=== PATIENT | male | born 1935 | race Caucasian/White ===

== ENCOUNTER → 2016-02-27 | Outpatient (CLI) | payer MEDICARE, OTHER ==
[2016-02-27 08:34] LABS: INR 1.1 (<1.1); Partial Thromboplastin Time 24.1 sec (22.0-30.0); Prothrombin Time 10.6 sec (9.0-12.0)
== END | disposition home or self-care (01) ==
LOC: LABWHC1 07:57
PROVIDERS: ATTEND Physical Medicine & Rehabilitation
DX: M48.06 Spinal stenosis, lumbar region (principal); M43.16 Spondylolisthesis, lumbar region; M51.17 Intervertebral disc disorders with radiculopathy, lumbosacral region; M47.27 Other spondylosis with radiculopathy, lumbosacral region; M54.2 Cervicalgia; M54.5 Low back pain; K21.9 Gastro-esophageal reflux disease without esophagitis; Z98.890 Other specified postprocedural states
CPT/HCPCS: 36415; 85610; 85730

== ENCOUNTER → 2016-03-06 | Outpatient (CLI) | payer MEDICARE, OTHER ==
--- NOTE | 2016-03-06 19:09 | PN ---
Luis is a 80-year-old male patient coming in for a compliancy check regarding his obstructive sleep apnea treatment. He was found to have mild NATE with an AHI of 11 and currently he is on CPAP pressure of 10 cm of water. This was following his CPAP titration that was undergone on 12/28/2015. His compliance data showed excellent CPAP use. His CPAP use for more than 4 hours is 100%, average CPAP use is 7 hours. His leak factor is at 4-L/m and he is having some issues with irritation of the skin around the nose with his Mirage FX mask. As such, was switched to a Solomon FX mask and he is also having some irritation in his nostrils. He is looking forward to a new mask. His AHI while on treatment is down to 1.8 and as such, his treatment has been successful. Clinically he is awake, alert during the day and he is already seeing good clinical response from CPAP therapy. His BP is 119/68, pulse 74, respirations 16, temperature 97.8. Weight is 183 and [place] score is 7. Saturation 96% on room air. GENERAL APPEARANCE: Calm, comfortable. HEENT: Negative for JVD. There is no goiter, neck mass. LUNGS: Diminished breath sounds bilaterally; otherwise clear. HEART: Sounds are regular rate and rhythm and normal S1, S2. ABDOMEN: Soft, nontender. No organomegaly. EXTREMITIES: No edema. No cyanosis or clubbing. IMPRESSION: 1. Obstructive sleep apnea with an AHI of 11, currently on CPAP pressure of 10. 2. Nose/skin irritation from Mirage FX and Solomon FX mask. 3. Hypersomnia, improved. 4. Bronchial asthma, intermittent. 5. Paroxysmal atrial fibrillation. 6. Hyperlipidemia. 7. Hypothyroidism. 8. Gastroesophageal reflux disease. PLAN: 1. Keep CPAP pressure at the same level. 2. Provide the patient with a large size Eson nasal mask. 3. See me back in 6 weeks' time for a follow-up. If this mask is acceptable, will switch him to an Eson mask and dropped the other two. 4. Treatment in general is successful. Will continue the same pressure setting and will continue to follow and make further recommendations based on his progress.
== END | disposition home or self-care (01) ==

== ENCOUNTER → 2016-04-17 | Outpatient (CLI) | payer MEDICARE, OTHER ==
--- NOTE | 2016-04-17 21:11 | PN ---
This 80-year-old male patient is seeing me in followup regarding his obstructive sleep apnea. The patient was diagnosed having mild NATE and he had an AHI of 11. The patient was treated with a CPAP pressure of 10 cm of water. This is his followup. During his earlier visit the patient was very compliant and he was seeing excellent clinical response. Nevertheless, he was having some issues with a nasal mask. I have tried different masks on this patient. The earlier masks that were used were Solomon FX, which he failed. He was given a Mirage FX, which was causing some irritation on the skin around the nose. He was also given an Eson nasal mask. On today's evaluation, he would like to try an alternative mask, and I spent approximately 45 minutes with this patient trying different masks. The ones that we used are AirFit N10, AirFit F10, and AirFit N wide. All of these failed, and the patient would like to go back to his original mask, which is either the Eson or the Mirage FX. Otherwise he is doing well. He is compliant with CPAP therapy. There have been no other complaints for now. Temperature 98.3, pulse 79, respirations 18. BP is 111/70. [place] score is 7. BMI is 26.1, saturation 94% on room air. GENERAL APPEARANCE: Calm, comfortable. HEENT: Negative for JVD. There is no goiter or neck mass. LUNGS: Clear to auscultation. HEART: Heart sounds are regular rate and rhythm. Normal S1, S2. No S3. No S4. No murmurs. ABDOMEN: Soft, nontender. No organomegaly. EXTREMITIES: No edema. No cyanosis or clubbing. IMPRESSION: 1. Obstructive sleep apnea, apnea-hypopnea index of 11, currently on CPAP pressure of 10 cm of water. 2. Difficulty in finding an appropriate nasal mask that ( ) to his facial features and large nose. 3. Hypersomnia, improved. 4. Bronchial asthma, intermittent. 5. Paroxysmal atrial fibrillation. 6. Hyperlipidemia. 7. Hypothyroidism. 8. Gastroesophageal reflux disease. PLAN: 1. After a lengthy search of various masks, we went back to his original large-sized Eson nasal mask, which can be used in alternation with Mirage FX nasal mask. 2. Keep same CPAP pressures. 3. See me back in a year's time in followup. Prescription for both were given through his DME.
== END | disposition home or self-care (01) ==
LOC: SLEEP 15:36
PROVIDERS: ATTEND Internal Medicine Critical Care Medicine
DX: G47.33 Obstructive sleep apnea (adult) (pediatric) (principal); G47.10 Hypersomnia, unspecified; J45.909 Unspecified asthma, uncomplicated; I48.0 Paroxysmal atrial fibrillation; E78.5 Hyperlipidemia, unspecified; E03.9 Hypothyroidism, unspecified; K21.9 Gastro-esophageal reflux disease without esophagitis

== ENCOUNTER → 2016-09-24 | Outpatient (CLI) | payer MEDICARE, OTHER ==
--- NOTE | 2016-09-24 10:57 | XR ---
EXAMINATION TYPE: XR knee complete bilateral DATE OF EXAM: 09/24/2016 COMPARISON: NONE HISTORY: Pain TECHNIQUE: Four views are submitted bilaterally. FINDINGS: Mild narrowing of the medial compartment of the knee joint and greater on the right. Mild hypertrophi c change of the patellofemoral joint bilaterally. Vascular calcifications noted. Chondrocalcinosis noted bilaterally. Osseous structures are intact. N o acute fracture seen. IMPRESSION: 1. Mild osteoarthritis with chondrocalcinosis bilaterally.
== END | disposition home or self-care (01) ==
LOC: RADXRMAIN 10:31
PROVIDERS: ATTEND Family Medicine
DX: M17.0 Bilateral primary osteoarthritis of knee (principal); M11.261 Other chondrocalcinosis, right knee; M11.262 Other chondrocalcinosis, left knee

== ENCOUNTER → 2017-06-04 | Outpatient (CLI) | payer MEDICARE, OTHER ==
--- NOTE | 2017-06-04 15:32 | PN ---
PROGRESS NOTE This patient is 82 years old, with known history of obstructive sleep apnea, AHI of 11, currently on CPAP pressure of 10. He is coming in for a routine followup. The patient was initially having some difficulties with his mask interface. He initially was using a nose mask and at a later stage, I switched him to an Air Fit F20 Air Touch model. The patient is coming in for a follow up. He is doing better while on the full-face mask. At times, he is still leaking and for that reason, he has made the mask quite tight on his face and because of his increased tightness, this is affecting his ability to maintain the mask throughout the night. He has been averaging around 2.5 hours of CPAP use per night and would like to see his compliancy improved. He is feeling a bit sleepy and tired during the day. He is wearing his CPAP every night; however, he is trying to make an effort to achieve more than 2.5 hours. He is still waking up a bit tired and sleepy during the day. His current Balm Score is at 9. VITALS: BP is 120/77, pulse 66, respirations 16, temperature 96.8, saturation 97% on room air. GENERAL APPEARANCE: Calm, comfortable. Head is atraumatic, normocephalic. Neck is supple. There is no JVD. No goiter or neck masses. LUNGS: Clear to auscultation. Heart sounds are regular rate and rhythm and rhythm. Normal S1, S2. No S3. No murmurs. Abdomen is soft, nontender. No organomegaly. EXTREMITIES: No edema. No cyanosis or clubbing. IMPRESSION: 1. Obstructive sleep apnea, apnea-hypopnea index of 11, currently on CPAP pressure of 10. 2. Chronic hypersomnia, probably due to suboptimal use of CPAP treatment. 3. Bronchial asthma. 4. Paroxysmal atrial fibrillation, current rhythm is sinus. 5. Hyperlipidemia. 6. Hypothyroidism. 7. Gastroesophageal reflux disease. PLAN: I was able to fit the patient with an Air Fit F20 large size full-face mask. This will be given a trial and the patient will be picking up a sample from our office and he will try to increase the number of hours of CPAP use per night. Will see him back in follow up at the [facility]. His overall treatment is suboptimum, would like to improve his compliance by improving his comfort level of mask interface. Will continue to follow and will make further recommendations based on his progress. MMODL / IJN: [id number] /
== END | disposition home or self-care (01) ==
LOC: SLEEP 13:21
PROVIDERS: ATTEND Internal Medicine Critical Care Medicine
DX: G47.33 Obstructive sleep apnea (adult) (pediatric) (principal); J45.909 Unspecified asthma, uncomplicated; I48.0 Paroxysmal atrial fibrillation; E78.5 Hyperlipidemia, unspecified; E03.9 Hypothyroidism, unspecified; K21.9 Gastro-esophageal reflux disease without esophagitis; Z99.89 Dependence on other enabling machines and devices

== ENCOUNTER 2017-06-23 19:36 | Inpatient (IN) | payer MEDICARE, OTHER ==
[2017-06-23] MEDS ORDERED: DILTIAZEM 50 MG in SODIUM CHLORIDE 0.9% 40 ML IV ONE (19:51)
--- NOTE | 2017-06-23 20:18 | ED ---
General Adult HPI - General Chief complaint: Chest Pain Stated complaint: chest pain Time Seen by Provider: 06/23/17 19:39 Source: patient, RN notes reviewed, old records reviewed Mode of arrival: ambulatory Limitations: no limitations - History of Present Illness Initial comments: This is an 82-year-old male the ER for evaluation. They presents for evaluation regards to shortness of breath chest pain and elevated heart rate. Patient has no history of A. fib with RVR, history of heart disease but no stents of prior heart attack. Patient admits to chest pain started prior to arrival, he does admit to not taking his medication flecainide earlier in the day. Patient has recent fevers no cough or congestion. States he was feeling fine yesterday. - Related Data Home Medications Medication Instructions Recorded Confirmed Aspirin EC [Ecotrin] 81 mg PO DAILY 09/23/13 11/15/15 Ezetimibe/Simvastatin [Vytorin 1 tab PO HS 09/23/13 11/15/15 10-20 mg Tablet] Furosemide [Lasix] 20 mg PO DAILY 09/23/13 11/15/15 Levothyroxine Sodium [Synthroid] 50 mcg PO DAILY 09/23/13 11/15/15 Montelukast [Singulair] 10 mg PO HS 09/23/13 11/15/15 Nitroglycerin Sl Tabs [Nitrostat] 0.4 mg SUBLINGUAL Q5M PRN 09/23/13 11/15/15 Omeprazole [PriLOSEC] 20 mg PO AC-BRKFST 09/23/13 11/15/15 Warfarin [Coumadin] 5 mg PO MOWETHFRSA 09/23/13 11/15/15 Albuterol Sulfate [Proair Hfa] 1 - 2 puff INHALATION RT-Q6H PRN 05/05/14 Albuterol Nebulized [Ventolin 2.5 mg INHALATION RT-Q6H PRN 07/14/15 11/15/15 Nebulized] DULoxetine HCL [Cymbalta] 30 mg PO DAILY 07/14/15 11/15/15 Flecainide Acetate [Flecainide 100 mg PO BID 11/15/15 11/15/15 Acetate] Warfarin Sodium [Warfarin Sodium] 7.5 mg PO SUTU 11/15/15 11/15/15 Previous Rx's Medication Instructions Recorded Cephalexin [Keflex] 500 mg PO Q8HR #21 cap 11/15/15 Allergies Allergy/AdvReac Type Severity Reaction Status Date / Time indomethacin [From Indocin] Allergy Severe states Verified 06/23/17 19:43 "severe asthma attack indomethacin sodium Allergy Severe states Verified 06/23/17 19:43 [From Indocin] "severe asthma attack" clarithromycin [From Biaxin] Allergy Unknown Rash/Hives Verified 06/23/17 19:43 morphine Allergy Unknown Hallucinati Verified 06/23/17 19:43 ons spironolactone Allergy Unknown DEVELOPED Verified 06/23/17 19:43 LUMP IN BREAST AND ENLARGEMENT PERFUME Allergy Dyspnea Uncoded 06/23/17 19:43 Review of Systems ROS Statement: Those systems with pertinent positive or pertinent negative responses have been documented in the HPI. ROS Other: All systems not noted in ROS Statement are negative. Past Medical History Past Medical History: Atrial Fibrillation, Coronary Artery Disease (CAD), Chest Pain / Angina, GERD/Reflux, Hyperlipidemia, Osteoarthritis (OA), Thyroid Disorder Additional Past Medical History / Comment(s): HIATAL HERNIA. RARE GERD. History of Any Multi-Drug Resistant Organisms: None Reported Past Surgical History: Back Surgery, Heart Catheterization, Hernia Repair Additional Past Surgical History / Comment(s): CTR ARABELLA. ARABELLA CATARACTS. ING HERNIA X3. ARABELLA KNEE SURG. TRAUMATIC AMP 1/2LT 3RD FINGER. FX BACK REPAIR. shoulder surg Past Anesthesia/Blood Transfusion Reactions: Motion Sickness Past Psychological History: No Psychological Hx Reported Smoking Status: Former smoker Past Alcohol Use History: None Reported Past Drug Use History: None Reported General Exam Limitations: no limitations General appearance: alert, in no apparent distress Head exam: Present: atraumatic, normocephalic, normal inspection Eye exam: Present: normal appearance, PERRL, EOMI. Absent: scleral icterus, conjunctival injection, periorbital swelling ENT exam: Present: normal exam, mucous membranes moist Neck exam: Present: normal inspection. Absent: tenderness, meningismus, lymphadenopathy Respiratory exam: Present: normal lung sounds bilaterally. Absent: respiratory distress, wheezes, rales, rhonchi, stridor Cardiovascular Exam: Present: tachycardia, irregular rhythm, normal heart sounds. Absent: systolic murmur, diastolic murmur, rubs, gallop, clicks GI/Abdominal exam: Present: soft, normal bowel sounds. Absent: distended, tenderness, guarding, rebound, rigid Extremities exam: Present: normal inspection, full ROM, normal capillary refill. Absent: tenderness, pedal edema, joint swelling, calf tenderness Back exam: Present: normal inspection Neurological exam: Present: alert, oriented X3, CN II-XII intact Psychiatric exam: Present: normal affect, normal mood Skin exam: Present: warm, dry, intact, normal color. Absent: rash Course Vital Signs 06/23/17 06/23/17 19:39 19:57 Temperature 97.8 F Pulse Rate 97 132 H Respiratory 18 22 Rate Blood Pressure 128/97 118/73 O2 Sat by Pulse 98 99 Oximetry EKG Findings - EKG Comments: EKG Findings:: EKG shows A. fib with RVR rate 143, QRS 70, QTc 466 Medical Decision Making - Lab Data Lab Results 06/23/17 Range/Units 19:50 PT 18.4 H (9.0-12.0) sec INR 2.0 H (<1.2) APTT 28.1 (22.0-30.0) sec Disposition Clinical Impression: Chest pain, Atrial fibrillation with RVR Disposition: ADMITTED IP TO THIS HOSP Condition: Fair Is patient prescribed a controlled substance at d/c from ED?: No Referrals: Mark Anthony Mckeon DO [Primary Care Provider] - 1-2 days
[2017-06-23] MEDS: SODIUM CHLORIDE 0.9% 1,000 ML IV SCH (20:30)
[2017-06-23 20:32] LABS: Partial Thromboplastin Time 28.1 sec (22.0-30.0); Prothrombin Time 18.4 sec (9.0-12.0)
[2017-06-23] MEDS ORDERED: NITROGLYCERIN SL TABS 0.4 MG TAB SUBLINGUAL PRN (20:32)
[2017-06-23] MEDS ORDERED: ASPIRIN 81 MG PO STA (20:32)
[2017-06-23 20:44] LABS: Basophils % (A) 0 %; Eosinophils # (A) 0.1 k/uL (0-0.7); Eosinophils % (A) 1 %; HCT 39.7 % (39.0-53.0); HGB 13.4 gm/dL (13.0-17.5); Lymphocytes # (A) 2.8 k/uL (1.0-4.8); Lymphocytes % (A) 47 %; MCH 31.8 pg (25.0-35.0); MCHC 33.7 g/dL (31.0-37.0); MCV 94.3 fL (80.0-100.0); Mean Platelet Volume 7.4; Monocytes # (A) 0.5 k/uL (0-1.0); Monocytes % (A) 8 %; Neutrophils # (A) 2.4 k/uL (1.3-7.7); Neutrophils % (A) 41 %; Platelet Count 159 k/uL (150-450); RBC 4.21 m/uL (4.30-5.90); RDW 15.4 % (11.5-15.5)
--- NOTE | 2017-06-23 20:46 | XR ---
EXAMINATION TYPE: XR chest 2V DATE OF EXAM: 06/23/2017 COMPARISON: 06/23/2015 INDICATION: Chest pain TECHNIQUE: Frontal and lateral views of the chest are obtained. FINDINGS: The heart size is normal. The pulmonary vasculature is normal. The lungs are clear. There is air within loops of bowel under the right diaphragm. IMPRESSION: 1. No acute pulmonary process.
[2017-06-23 20:50] LABS: Creatine Kinase 151 U/L (55-170)
[2017-06-23 21:02] LABS: Creatine Kinase MB 2.4 ng/mL (0.0-2.4); Troponin I <0.012 ng/mL (0.000-0.034)
[2017-06-23 21:19] VITALS: BMI 26.9
[2017-06-23 21:29] LABS: ALT 18 U/L (21-72); AST 24 U/L (17-59); Albumin 3.9 g/dL (3.5-5.0); Alkaline Phosphatase 97 U/L (38-126); Anion Gap 15 mmol/L; Blood Urea Nitrogen 18 mg/dL (9-20); Calcium 9.3 mg/dL (8.4-10.2); Carbon Dioxide 22 mmol/L (22-30); Chloride 108 mmol/L (98-107); Glucose 95 mg/dL (74-99); Lipase 120 U/L (23-300); Potassium 3.9 mmol/L (3.5-5.1); Sodium 145 mmol/L (137-145); Total Bilirubin 0.9 mg/dL (0.2-1.3); Total Protein 6.6 g/dL (6.3-8.2)
[2017-06-23] MEDS: FLECAINIDE 50 MG TAB PO SCH (21:31)
[2017-06-23] MEDS: METOPROLOL TARTRATE 50 MG TAB PO SCH (21:37)
[2017-06-24 02:06] LABS: Creatine Kinase 116 U/L (55-170)
[2017-06-24 02:19] LABS: Troponin I <0.012 ng/mL (0.000-0.034)
[2017-06-24 06:43] LABS: Cholesterol 112 mg/dL (<200); HDL Cholesterol 36 mg/dL (40-60); LDL Cholesterol,Calculated 63 mg/dL (0-99); Triglycerides 65 mg/dL (<150)
[2017-06-24 06:46] LABS: Creatine Kinase 99 U/L (55-170)
[2017-06-24 06:58] LABS: Creatine Kinase MB 1.7 ng/mL (0.0-2.4); Troponin I <0.012 ng/mL (0.000-0.034)
[2017-06-24] MEDS ORDERED: ASPIRIN 325 MG TAB PO SCH (09:00)
--- NOTE | 2017-06-24 10:25 | P.CRDCN ---
History of Present Illness Consult date: 06/24/17 Requesting physician: Marleni Garcia Consult reason: chest pain, atrial fibrillation Chief complaint: Chest pain and palpitations History of present illness: This is an 82-year-old gentleman who follows regularly with Dr. Izaguirre in the office. He has known history of hyperlipidemia, hypothyroidism, paroxysmal atrial fibrillation, coronary artery disease, patient states that he had a heart catheterization performed in the past at which time he states that he underwent angioplasty with attempt at stent placement. We will obtain the records from the office on this. Patient does have history of GERD and difficulty swallowing which she states he's had for several years. He presents to the hospital on this occasion with what he describes as crushing chest pain, mild nausea, and the feeling that his heart was racing fast. EKG on presentation here shows atrial fibrillation with a rapid ventricular response into her Q waves are noted. Chest x-ray does not reveal any acute pulmonary process. White blood cell count 6.0, hemoglobin 13.4, platelet count 159. Sodium 145, potassium 3.9, BUN 18, creatinine 0.8. Troponins are negative 3. BNP level LIX. Cholesterol 112, triglycerides 65, LDL 63, HDL 36. Patient was initiated on IV Cardizem in the emergency room, around 1:00 in the morning had a 9 second pause and converted to normal sinus rhythm. Continues to be in a normal sinus rhythm this morning with a heart rate in the 50s. Still complaining of midsternal chest discomfort, when patient takes even a mildly deep breath the pain accentuates substantially. If he is not taking a deep breath he has no discomfort at all in the chest. Past Medical History Past Medical History: Atrial Fibrillation, Coronary Artery Disease (CAD), Chest Pain / Angina, GERD/Reflux, Hyperlipidemia, Osteoarthritis (OA), Thyroid Disorder Additional Past Medical History / Comment(s): HIATAL HERNIA. RARE GERD. History of Any Multi-Drug Resistant Organisms: None Reported Past Surgical History: Back Surgery, Heart Catheterization, Hernia Repair Additional Past Surgical History / Comment(s): CTR ARABELLA. ARABELLA CATARACTS. ING HERNIA X3. ARABELLA KNEE SURG. TRAUMATIC AMP 1/2LT 3RD FINGER. FX BACK REPAIR. shoulder surg Past Anesthesia/Blood Transfusion Reactions: Motion Sickness Past Psychological History: No Psychological Hx Reported Smoking Status: Former smoker Past Alcohol Use History: None Reported Past Drug Use History: None Reported Medications and Allergies Home Medications Medication Instructions Recorded Confirmed Type Aspirin EC [Ecotrin] 81 mg PO HS 09/23/13 06/24/17 History Ezetimibe/Simvastatin [Vytorin 1 tab PO HS 09/23/13 06/24/17 History 10-20 mg Tablet] Furosemide [Lasix] 20 mg PO DAILY 09/23/13 06/24/17 History Levothyroxine Sodium [Synthroid] 50 mcg PO DAILY 09/23/13 06/24/17 History Montelukast [Singulair] 10 mg PO HS 09/23/13 06/24/17 History Nitroglycerin Sl Tabs [Nitrostat] 0.4 mg SUBLINGUAL Q5M PRN 09/23/13 06/24/17 History Omeprazole [PriLOSEC] 20 mg PO AC-BRKFST 09/23/13 06/24/17 History Warfarin [Coumadin] 5 mg PO TUTHSA 09/23/13 06/24/17 History Albuterol Sulfate [Proair Hfa] 1 - 2 puff INHALATION RT-Q6H PRN 05/05/14 History Albuterol Nebulized [Ventolin 2.5 mg INHALATION RT-Q6H PRN 07/14/15 06/24/17 History Nebulized] Flecainide Acetate [Flecainide 100 mg PO BID 11/15/15 06/24/17 History Acetate] Warfarin Sodium [Warfarin Sodium] 7.5 mg PO SUMOWEFR 11/15/15 06/24/17 History Allergies Allergy/AdvReac Type Severity Reaction Status Date / Time indomethacin [From Indocin] Allergy Severe states Verified 06/24/17 08:26 "severe asthma attack indomethacin sodium Allergy Severe states Verified 06/24/17 08:26 [From Indocin] "severe asthma attack" clarithromycin [From Biaxin] Allergy Unknown Rash/Hives Verified 06/24/17 08:26 morphine Allergy Unknown Hallucinati Verified 06/24/17 08:26 ons spironolactone Allergy Unknown DEVELOPED Verified 06/24/17 08:26 LUMP IN BREAST AND ENLARGEMENT PERFUME Allergy Dyspnea Uncoded 06/23/17 19:43 Physical Exam Vitals: Vital Signs Temp Pulse Pulse Resp BP BP Pulse Ox 06/24/17 07:59 97.0 F L 54 L 18 100/57 96 05/07/18 04:00 97.3 F L 58 L 18 103/59 96 06/24/17 00:00 97.1 F L 98 17 78/45 98 06/23/17 21:40 97.0 F L 102 H 19 112/76 98 06/23/17 20:45 100 19 112/76 98 06/23/17 20:43 98.6 F 132 H 22 122/56 99 06/23/17 19:57 132 H 22 118/73 99 06/23/17 19:39 97.8 F 97 18 128/97 98 Intake and Output 06/23/17 06/24/17 06/24/17 22:59 06:59 14:59 Intake Total 75 Balance 75 Intake: Intake, IV Titration 75 Amount Diltiazem 50 mg In Sodium 15 Chloride 0.9% 40 ml @ 5 MG/HR 5 mls/hr IV .Q10H [facility] Rx#:[id number] Sodium Chloride 0.9% 1, 60 000 ml @ 20 mls/hr IV . Q24H [facility] Rx#:[id number] Other: Voiding Method Toilet Toilet # Voids 1 1 0 Weight 82.9 kg 82.9 kg Assessment and plan #1 chest pain, atypical for acute coronary syndrome. Troponins negative 3. #2 atrial fibrillation with rapid ventricular response, currently in normal sinus rhythm #3 history of paroxysmal atrial fibrillation #4 coronary artery disease with prior PTCA, exact details unavailable. #5 paroxysmal atrial fibrillation, on Coumadin for anticoagulation #6 GERDS and chronic difficulty in swallowing Plan We will obtain an echocardiogram with Doppler study as well as a TSH level. Patient's chest pain is very atypical and pleuritic in nature. Troponins are negative. We will obtain the patient's office note. Continue flecainide and beta bi. Further recommendations to follow. DNP note has been reviewed, I agree with a documented findings and plan of care. Patient was seen and examined. Results 06/23/17 19:50 06/23/17 19:50 Cardiac Enzymes 06/23/17 06/23/17 06/24/17 Range/Units 19:50 19:50 01:00 AST 24 (17-59) U/L CK-MB (CK-2) 2.4 2.0 (0.0-2.4) ng/mL Troponin I <0.012 <0.012 (0.000-0.034) ng/mL 06/24/17 Range/Units 05:50 AST (17-59) U/L CK-MB (CK-2) 1.7 (0.0-2.4) ng/mL Troponin I <0.012 (0.000-0.034) ng/mL Coagulation 06/23/17 Range/Units 19:50 PT 18.4 H (9.0-12.0) sec APTT 28.1 (22.0-30.0) sec Lipids 06/24/17 Range/Units 05:50 Triglycerides 65 (<150) mg/dL Cholesterol 112 (<200) mg/dL HDL Cholesterol 36 L (40-60) mg/dL CBC 06/23/17 Range/Units 19:50 WBC 6.0 (3.8-10.6) k/uL RBC 4.21 L (4.30-5.90) m/uL Hgb 13.4 (13.0-17.5) gm/dL Hct 39.7 (39.0-53.0) % Plt Count 159 (150-450) k/uL Comprehensive Metabolic Panel 06/23/17 Range/Units 19:50 Sodium 145 (137-145) mmol/L Potassium 3.9 (3.5-5.1) mmol/L Chloride 108 H (98-107) mmol/L Carbon Dioxide 22 (22-30) mmol/L BUN 18 (9-20) mg/dL Creatinine 0.80 (0.66-1.25) mg/dL Glucose 95 (74-99) mg/dL Calcium 9.3 (8.4-10.2) mg/dL AST 24 (17-59) U/L ALT 18 L (21-72) U/L Alkaline Phosphatase 97 (38-126) U/L Total Protein 6.6 (6.3-8.2) g/dL Albumin 3.9 (3.5-5.0) g/dL Current Medications Generic Name Dose Route Start Last Admin Trade Name Freq PRN Reason Stop Dose Admin Aspirin 325 mg 06/24/17 09:00 06/24/17 10:09 Aspirin PO 325 mg DAILY [facility] Administration Flecainide Acetate 100 mg 06/23/17 21:00 06/23/17 21:31 Tambocor PO Not Given BID [facility] Sodium Chloride 1,000 mls @ 20 mls/hr 06/23/17 20:45 06/23/17 20:30 Saline 0.9% IV 20 mls/hr .Q24H [facility] Administration Metoprolol Tartrate 50 mg 06/23/17 21:00 06/23/17 21:37 Lopressor PO 50 mg BID [facility] Administration Nitroglycerin 0.4 mg 06/23/17 20:32 Nitrostat SUBLINGUAL Q5M PRN Chest Pain Warfarin Sodium 5 mg 06/24/17 18:00 Coumadin PO [id number] [facility] Intake and Output 06/23/17 06/24/17 06/24/17 22:59 06:59 14:59 Intake Total 75 Balance 75 Intake: Intake, IV Titration 75 Amount Diltiazem 50 mg In Sodium 15 Chloride 0.9% 40 ml @ 5 MG/HR 5 mls/hr IV .Q10H [facility] Rx#:[id number] Sodium Chloride 0.9% 1, 60 000 ml @ 20 mls/hr IV . Q24H [facility] Rx#:[id number] Other: Voiding Method Toilet Toilet # Voids 1 1 0 Weight 82.9 kg 82.9 kg 06/23/17 19:50 06/23/17 19:50
[2017-06-24] MEDS: FLECAINIDE 50 MG TAB PO SCH ×2 (10:35→20:27)
[2017-06-24] MEDS: METOPROLOL TARTRATE 50 MG TAB PO SCH ×2 (10:35→20:28)
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
[2017-06-24] MEDS ORDERED: WARFARIN 5 MG TAB PO SCH (18:00)
[2017-06-24] MEDS: SODIUM CHLORIDE 0.9% 1,000 ML IV SCH (21:17)
[2017-06-25 04:40] VITALS: RESP 18
[2017-06-25 06:38] LABS: Basophils % (A) 0 %; Eosinophils # (A) 0.1 k/uL (0-0.7); Eosinophils % (A) 1 %; HCT 37.8 % (39.0-53.0); HGB 12.6 gm/dL (13.0-17.5); Lymphocytes # (A) 1.5 k/uL (1.0-4.8); Lymphocytes % (A) 37 %; MCH 32.3 pg (25.0-35.0); MCHC 33.3 g/dL (31.0-37.0); MCV 97.1 fL (80.0-100.0); Mean Platelet Volume 7.7; Monocytes # (A) 0.3 k/uL (0-1.0); Monocytes % (A) 8 %; Neutrophils # (A) 2.1 k/uL (1.3-7.7); Neutrophils % (A) 52 %; Platelet Count 140 k/uL (150-450); RDW 15.5 % (11.5-15.5); WBC 4.1 k/uL (3.8-10.6)
[2017-06-25 06:59] LABS: INR 2.2 (<1.2); Prothrombin Time 19.9 sec (9.0-12.0)
[2017-06-25 07:10] LABS: Anion Gap 7 mmol/L; Blood Urea Nitrogen 16 mg/dL (9-20); Calcium 8.7 mg/dL (8.4-10.2); Carbon Dioxide 27 mmol/L (22-30); Chloride 107 mmol/L (98-107); Glucose 84 mg/dL (74-99); Potassium 4.4 mmol/L (3.5-5.1); Sodium 141 mmol/L (137-145)
[2017-06-25 07:53] VITALS: TEMP 96.5
[2017-06-25] MEDS: METOPROLOL TARTRATE 50 MG TAB PO SCH (08:20)
[2017-06-25] MEDS: FLECAINIDE 50 MG TAB PO SCH (08:20)
[2017-06-25] MEDS ORDERED: NITROGLYCERIN SL TABS 0.4 MG TAB SUBLINGUAL PRN (12:10)
[2017-06-25] MEDS ORDERED: ALBUTEROL NEBULIZED 2.5 MG/3 ML INHALATION PRN (12:10)
[2017-06-25] MEDS ORDERED: FUROSEMIDE 20 MG TAB PO SCH (12:15)
[2017-06-25 12:30] VITALS: BP 130/69; PULSE 48
--- NOTE | 2017-06-25 12:57 | P.PN ---
Subjective Progress Note Date: 06/25/17 Principal diagnosis: Atrial fibrillation This is an 82-year-old gentleman who follows regularly with Dr. Izaguirre in the office. He has known history of hyperlipidemia, hypothyroidism, paroxysmal atrial fibrillation, coronary artery disease, patient states that he had a heart catheterization performed in the past at which time he states that he underwent angioplasty with attempt at stent placement. We will obtain the records from the office on this. Patient does have history of GERD and difficulty swallowing which she states he's had for several years. He presents to the hospital on this occasion with what he describes as crushing chest pain, mild nausea, and the feeling that his heart was racing fast. EKG on presentation here shows atrial fibrillation with a rapid ventricular response into her Q waves are noted. Chest x-ray does not reveal any acute pulmonary process. White blood cell count 6.0, hemoglobin 13.4, platelet count 159. Sodium 145, potassium 3.9, BUN 18, creatinine 0.8. Troponins are negative 3. BNP level LIX. Cholesterol 112, triglycerides 65, LDL 63, HDL 36. Patient was initiated on IV Cardizem in the emergency room, around 1:00 in the morning had a 9 second pause and converted to normal sinus rhythm. Continues to be in a normal sinus rhythm this morning with a heart rate in the 50s. Still complaining of midsternal chest discomfort, when patient takes even a mildly deep breath the pain accentuates substantially. If he is not taking a deep breath he has no discomfort at all in the chest. 06/25/2017 Patient seen and examined this morning, continues to be in a normal sinus rhythm. No evidence of any significant pauses noted on the monitor. Blood pressure 130/70, heart rate in the 50s. 92% on room air. Patient may be able to be discharged home today from cardiology's perspective, we will continue him on current dose of flecainide. Objective - Vital Signs Vital signs: Vital Signs Temp 96.5 F L 06/25/17 07:52 Pulse 48 L 06/25/17 12:00 Resp 18 06/25/17 07:52 BP 130/69 06/25/17 12:00 Pulse Ox 92 L 06/25/17 09:06 Intake & Output 06/24/17 06/25/17 06/25/17 18:59 06:59 18:59 Intake Total 480 0 Balance 480 0 Weight 81.1 kg Intake: Intake, IV Titration 0 Amount Sodium Chloride 0.9% 1, 0 000 ml @ 20 mls/hr IV . Q24H [facility] Rx#:[id number] Oral 480 Other: Voiding Method Toilet # Voids 2 1 0 - Exam Assessment and plan #1 chest pain, atypical for acute coronary syndrome. Troponins negative 3. #2 atrial fibrillation with rapid ventricular response, currently in normal sinus rhythm #3 history of paroxysmal atrial fibrillation #4 coronary artery disease with prior PTCA, exact details unavailable. #5 paroxysmal atrial fibrillation, on Coumadin for anticoagulation #6 GERDS and chronic difficulty in swallowing Plan Cardiology's perspective, patient may be able to be discharged home today. We will make him a follow-up appointment to see Dr. Izaguirre in the office post discharge. DNP note has been reviewed, I agree with a documented findings and plan of care. Patient was seen and examined. - Labs CBC & Chem 7: 06/25/17 06:03 06/25/17 06:03 Labs: Abnormal Lab Results - Last 24 Hours (Table) 06/25/17 06/25/17 Range/Units 06:03 06:03 RBC 3.90 L (4.30-5.90) m/uL Hgb 12.6 L (13.0-17.5) gm/dL Hct 37.8 L (39.0-53.0) % Plt Count 140 L (150-450) k/uL PT 19.9 H (9.0-12.0) sec INR 2.2 H (<1.2)
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
[2017-06-25] MEDS ORDERED: WARFARIN 5 MG TAB PO SCH (18:00)
[2017-06-25] MEDS ORDERED: ASPIRIN 81 MG PO SCH (21:00)
[2017-06-25] MEDS ORDERED: ATORVASTATIN 10 MG TAB PO SCH (21:00)
[2017-06-25] MEDS ORDERED: MONTELUKAST 10 MG TAB PO SCH (21:00)
[2017-06-25] MEDS ORDERED: EZETIMIBE 10 MG TAB PO SCH (21:00)
[2017-06-26] MEDS ORDERED: LEVOTHYROXINE 50 MCG TAB PO SCH (06:30)
[2017-06-26] MEDS ORDERED: PANTOPRAZOLE 40 MG TABLET PO SCH (07:30)
[2017-06-26] MEDS ORDERED: WARFARIN 7.5 MG TAB PO SCH (18:00)
== END 2017-06-25 13:10 | disposition home or self-care (01) | DRG 310 ==
LOC: EC 19:36 → 6SEL 20:32
PROVIDERS: ADMIT Internal Medicine; ATTEND Internal Medicine
DX: I48.0 Paroxysmal atrial fibrillation (principal); E03.9 Hypothyroidism, unspecified; E78.5 Hyperlipidemia, unspecified; I25.10 Atherosclerotic heart disease of native coronary artery without angina pectoris; J45.20 Mild intermittent asthma, uncomplicated; K21.9 Gastro-esophageal reflux disease without esophagitis; R13.10 Dysphagia, unspecified; K44.9 Diaphragmatic hernia without obstruction or gangrene; M19.90 Unspecified osteoarthritis, unspecified site; R07.89 Other chest pain; H91.90 Unspecified hearing loss, unspecified ear; Z79.01 Long term (current) use of anticoagulants; Z79.82 Long term (current) use of aspirin; Z79.899 Other long term (current) drug therapy; Z98.61 Coronary angioplasty status; Z87.891 Personal history of nicotine dependence; Z98.42 Cataract extraction status, left eye; Z98.41 Cataract extraction status, right eye; Z96.1 Presence of intraocular lens; Z89.022 Acquired absence of left finger(s); Z88.5 Allergy status to narcotic agent; Z88.8 Allergy status to other drugs, medicaments and biological substances; Z91.048 Other nonmedicinal substance allergy status; Z82.49 Family history of ischemic heart disease and other diseases of the circulatory system; Z80.6 Family history of leukemia; Z80.0 Family history of malignant neoplasm of digestive organs; Z82.69 Family history of other diseases of the musculoskeletal system and connective tissue; Z83.79 Family history of other diseases of the digestive system
CPT/HCPCS: 36415; 71046; 80048; 80053; 80061; 82550; 82553; 83690; 83735; 83880; 84443; 84484; 85025; 85610; 85730; 93005; 94760; 96365; 99285

== ENCOUNTER → 2017-11-05 | Outpatient (CLI) | payer MEDICARE, OTHER ==
--- NOTE | 2017-11-05 15:34 | PN ---
PROGRESS NOTE An 82-year-old, male patient seeing me in [facility] regarding NATE and CPAP therapy. I have tried hard to make adjustments in the patient's CPAP machine and mask interface to make his treatment more successful. In summary, the patient has a mild NATE with an AHI of 11 and he is currently on CPAP pressure of 10 cm of water. During his last visit, I switched the patient to an Air Touch model, it is a fullface mask which he is currently using. He feels better, his lead factor is improved on today's evaluation and he is leaking less. He needs to be more compliant; however, with the CPAP therapy and he is achieving CPAP therapy for more than 4 hours, less than 25% of the time. Average CPAP is around 2.7 hours per night. He is using his CPAP only 50% of the time. Leak factor is 24 L/minute and AHI water treatment is down to 1.3. Upon further questioning, the patient said that he likes the CPAP machine and wants to continue using it, knowing that he benefits from it, especially on the days that he uses it. His [place] score is a 9. BP is 127/71, pulse 74, respirations 16, temperature 97.4, saturation 97% on room air. Weight was 179, height is 5, 10 and BMI is 25.6. GENERAL APPEARANCE: Calm, comfortable. Head is atraumatic, normocephalic. Neck is supple. There is no JVD, no carotid bruits, no neck masses. Lungs diminished breath sounds bilaterally, otherwise clear. Heart sounds are regular. Normal S1/S2. No murmurs. Abdomen is soft, nontender. No organomegaly. Extremities there is no edema, no cyanosis or clubbing. Neurologically, the patient is alert and oriented. No focal neurological deficit. IMPRESSION: 1. Obstructive sleep apnea, apnea-hypopnea index of 11, consistent with mild disease, currently on CPAP pressure of 10. 2. Chronic hypersomnia. 3. Suboptimal compliance with CPAP therapy. 4. Chronic bronchial asthma. 5. Paroxysmal atrial fibrillation, currently in sinus. 6. Hypothyroidism. 7. Hyperlipidemia. 8. Acid reflux. PLAN: 1. Continue the Air Touch mask, large-size knowing that this mass has improved his leaks in general and has improved his mask fit and interface. 2. Continue CPAP therapy at same level of pressure which is 10 cm of water. 3. I recommended switching this patient to an APAP mode with a minimum pressure of 5, maximum pressure of 10 and this will hopefully offer lower CPAP pressures improved with friability in compliance in general. 4. Will see me back in 6 months' time in followup for a reevaluation and recheck. MMKOSTAL / IJN: [id number] /
== END | disposition home or self-care (01) ==
LOC: SLEEP 10:17
PROVIDERS: ATTEND Internal Medicine Critical Care Medicine
DX: G47.33 Obstructive sleep apnea (adult) (pediatric) (principal); J45.909 Unspecified asthma, uncomplicated; I48.0 Paroxysmal atrial fibrillation; L98.8 Other specified disorders of the skin and subcutaneous tissue; E03.9 Hypothyroidism, unspecified; E78.5 Hyperlipidemia, unspecified; K21.9 Gastro-esophageal reflux disease without esophagitis; Z99.89 Dependence on other enabling machines and devices

== ENCOUNTER 2018-02-23 08:50 | Emergency (ER) | payer MEDICARE, OTHER ==
[2018-02-23 08:54] VITALS: TEMP 97.5
[2018-02-23] MEDS ORDERED: NITROGLYCERIN SL TABS 0.4 MG TAB SUBLINGUAL STA ×3 (09:03)
[2018-02-23] MEDS ORDERED: ASPIRIN 81 MG PO STA (09:03)
[2018-02-23] MEDS ORDERED: SODIUM CHLORIDE 0.9% 1,000 ML IV STA (09:03)
--- NOTE | 2018-02-23 09:07 | ED ---
General Adult HPI - General Chief complaint: Chest Pain Stated complaint: chest pain Time Seen by Provider: 02/23/18 08:58 Source: patient, family, RN notes reviewed Mode of arrival: wheelchair Limitations: no limitations - History of Present Illness Initial comments: Patient is a pleasant 82-year-old male presenting to the emergency department with son with complaints of chest discomfort. Discomfort feels like an ache. Discomfort started around 6 AM and has progressed some since that time. Discomfort is now severe. No radiation. Patient does have associated dyspnea. No associated nausea or vomiting or diaphoresis. Patient does have history of similar symptoms previously associated with previous cardiac angioplasty. Stent was unable to be placed at that time. - Related Data Home Medications Medication Instructions Recorded Confirmed Aspirin EC [Ecotrin Low Dose] 81 mg PO HS 09/23/13 02/23/18 Ezetimibe/Simvastatin [Vytorin 1 tab PO HS 09/23/13 02/23/18 10-20 mg Tablet] Furosemide [Lasix] 20 mg PO DAILY 09/23/13 02/23/18 Levothyroxine Sodium [Synthroid] 50 mcg PO DAILY 09/23/13 02/23/18 Montelukast [Singulair] 10 mg PO HS 09/23/13 02/23/18 Nitroglycerin Sl Tabs [Nitrostat] 0.4 mg SUBLINGUAL Q5M PRN 09/23/13 02/23/18 Omeprazole [PriLOSEC] 20 mg PO DAILY 09/23/13 02/23/18 Warfarin [Coumadin] 5 mg PO TUTHSA 09/23/13 02/23/18 Albuterol Sulfate [Proair Hfa] 1 - 2 puff INHALATION RT-Q6H PRN 05/05/14 Flecainide Acetate [Tambocor] 100 mg PO BID 11/15/15 02/23/18 Warfarin Sodium 7.5 mg PO SUMOWEFR 11/15/15 02/23/18 ALPRAZolam [Xanax] 0.25 mg PO DAILY PRN 02/23/18 02/23/18 Fluticasone/Salmeterol [Advair 1 inhalation PO BID PRN 02/23/18 02/23/18 250-50 Diskus] Allergies Allergy/AdvReac Type Severity Reaction Status Date / Time indomethacin [From Indocin] Allergy Severe states Verified 02/23/18 09:36 "severe asthma attack indomethacin sodium Allergy Severe states Verified 02/23/18 09:36 [From Indocin] "severe asthma attack" clarithromycin [From Biaxin] Allergy Unknown Rash/Hives Verified 02/23/18 09:36 morphine Allergy Unknown Hallucinati Verified 02/23/18 09:36 ons spironolactone Allergy Unknown DEVELOPED Verified 02/23/18 09:36 LUMP IN BREAST AND ENLARGEMENT PERFUME Allergy Dyspnea Uncoded 02/23/18 08:54 Review of Systems ROS Statement: Those systems with pertinent positive or pertinent negative responses have been documented in the HPI. ROS Other: All systems not noted in ROS Statement are negative. Constitutional: Denies: fever Eyes: Denies: eye pain ENT: Denies: ear pain Respiratory: Reports: dyspnea. Denies: cough Cardiovascular: Reports: chest pain Endocrine: Denies: fatigue Gastrointestinal: Denies: abdominal pain Genitourinary: Denies: dysuria Musculoskeletal: Denies: back pain Skin: Denies: rash Neurological: Denies: weakness Past Medical History Past Medical History: Atrial Fibrillation, Coronary Artery Disease (CAD), Chest Pain / Angina, GERD/Reflux, Hyperlipidemia, Osteoarthritis (OA), Thyroid Disorder Additional Past Medical History / Comment(s): HIATAL HERNIA. RARE GERD. History of Any Multi-Drug Resistant Organisms: None Reported Past Surgical History: Back Surgery, Heart Catheterization, Hernia Repair Additional Past Surgical History / Comment(s): CTR ARABELLA. ARABELLA CATARACTS. ING HERNIA X3. ARABELLA KNEE SURG. TRAUMATIC AMP 1/2LT 3RD FINGER. FX BACK REPAIR. shoulder surg Past Anesthesia/Blood Transfusion Reactions: Motion Sickness Past Psychological History: No Psychological Hx Reported Smoking Status: Former smoker Past Alcohol Use History: None Reported Past Drug Use History: None Reported - Past Family History Father History Unknown: Yes (Father secondary to bowel obstruction at age 69) Mother History Unknown: Yes (Mother from CAD CHF) Brother(s) History Unknown: Yes (5 brothers, one with leukemia, CAD with 4 stents, throat cancer) Sister(s) History Unknown: Yes (5 sisters one with GI cancer,) Daughter(s) History Unknown: Yes (2 daughters one with fibromyalgia) Son(s) History Unknown: Yes (2 sons healthy) General Exam Limitations: no limitations General appearance: alert, other (Patient does appear uncomfortable) Head exam: Present: atraumatic Eye exam: Present: normal appearance, PERRL ENT exam: Present: normal oropharynx Neck exam: Present: normal inspection Respiratory exam: Present: normal lung sounds bilaterally. Absent: chest wall tenderness Cardiovascular Exam: Present: tachycardia Expanded Peripheral pulses: 2+: Radial (R), Radial (L), Posterior Tibialis (R), Posterior Tibialis (L) GI/Abdominal exam: Present: soft. Absent: distended, tenderness Extremities exam: Present: normal inspection. Absent: pedal edema, calf tenderness Neurological exam: Present: alert Psychiatric exam: Present: normal affect, normal mood Skin exam: Present: normal color Course Vital Signs 02/23/18 02/23/18 02/23/18 08:53 09:15 09:33 Temperature 97.5 F L Pulse Rate 54 L 145 H 128 H Respiratory 20 20 18 Rate Blood Pressure 110/72 121/118 103/49 O2 Sat by Pulse 100 98 98 Oximetry 02/23/18 02/23/18 02/23/18 09:45 10:00 10:15 Temperature Pulse Rate 101 H 92 Respiratory 24 25 H 11 L Rate Blood Pressure 103/49 92/74 113/79 O2 Sat by Pulse 100 98 100 Oximetry 02/23/18 02/23/18 02/23/18 10:30 10:45 11:00 Temperature Pulse Rate 85 86 92 Respiratory 16 14 11 L Rate Blood Pressure 100/66 94/69 101/70 O2 Sat by Pulse 99 99 100 Oximetry 02/23/18 02/23/18 02/23/18 11:30 12:00 12:30 Temperature Pulse Rate 75 75 71 Respiratory 13 16 16 Rate Blood Pressure 97/74 100/71 94/66 O2 Sat by Pulse 99 99 98 Oximetry 02/23/18 02/23/18 13:00 15:00 Temperature Pulse Rate 77 84 Respiratory 16 14 Rate Blood Pressure 92/66 103/64 O2 Sat by Pulse 98 100 Oximetry - Reevaluation(s) Reevaluation #1: 02/23/18 09:30 Patient reevaluated and unchanged 02/23/18 14:13 Patient reevaluated and symptom-free with rate control. Monitor with continued A. fib, rate is 86-90. Cardizem drip has been decreased. Patient is requesting discharge home. Patient and family notified of limitations and are considering staying for a second set of enzymes. Case was discussed in detail with Dr. Garcia who is familiar with this patient. He states patient can be discharged if second set of enzymes is negative. He feels symptoms are likely related to the patient's atrial fibrillation. He states patient has recently been seen by cardiology and he is familiar with this patient. 02/23/18 15:37 Case was again discussed with Dr. Garcia who still feels comfortable with discharge of patient. Patient reevaluated and remained symptom-free. Patient still refuses admission and requesting discharge. Patient attributes this to sec at home that needs his care. Patient and son are both made aware that cardiac disease has not been completely ruled out at this point and recommendation was still for admission however patient and son refuse this. EKG Findings - EKG Comments: EKG Findings:: A. fib with RVR, rate 140. QRS 84. QT 328. QTC 500. Normal axis. Normal QRS. Nonspecific ST-T. Medical Decision Making - Lab Data Result diagrams: 02/23/18 09:10 02/23/18 09:10 Lab Results 02/23/18 02/23/18 02/23/18 Range/Units 09:10 09:10 09:10 WBC 6.6 (3.8-10.6) k/uL RBC 4.08 L (4.30-5.90) m/uL Hgb 13.8 (13.0-17.5) gm/dL Hct 41.0 (39.0-53.0) % MCV 100.5 H (80.0-100.0) fL MCH 33.7 (25.0-35.0) pg MCHC 33.5 (31.0-37.0) g/dL RDW 15.2 (11.5-15.5) % Plt Count 160 (150-450) k/uL Neutrophils % 40 % Lymphocytes % 49 % Monocytes % 6 % Eosinophils % 1 % Basophils % 0 % Neutrophils # 2.6 (1.3-7.7) k/uL Lymphocytes # 3.2 (1.0-4.8) k/uL Monocytes # 0.4 (0-1.0) k/uL Eosinophils # 0.1 (0-0.7) k/uL Basophils # 0.0 (0-0.2) k/uL Macrocytosis Slight PT (9.0-12.0) sec INR (<1.2) APTT (22.0-30.0) sec D-Dimer (<0.60) mg/L FEU Sodium 141 (137-145) mmol/L Potassium 4.1 (3.5-5.1) mmol/L Chloride 110 H (98-107) mmol/L Carbon Dioxide 20 L (22-30) mmol/L Anion Gap 11 mmol/L BUN 22 H (9-20) mg/dL Creatinine 0.91 (0.66-1.25) mg/dL Est GFR (CKD-EPI)AfAm >90 (>60 ml/min/1.73 sqM) Est GFR (CKD-EPI)NonAf 79 (>60 ml/min/1.73 sqM) Glucose 95 (74-99) mg/dL Calcium 9.6 (8.4-10.2) mg/dL Magnesium 1.8 (1.6-2.3) mg/dL Total Bilirubin 1.8 H (0.2-1.3) mg/dL AST 28 (17-59) U/L ALT 26 (21-72) U/L Alkaline Phosphatase 64 (38-126) U/L Total Creatine Kinase 193 H (55-170) U/L CK-MB (CK-2) 3.3 H (0.0-2.4) ng/mL CK-MB (CK-2) Rel Index 1.7 Troponin I <0.012 (0.000-0.034) ng/mL NT-Pro-B Natriuret Pep pg/mL Total Protein 6.7 (6.3-8.2) g/dL Albumin 4.0 (3.5-5.0) g/dL 02/23/18 02/23/18 02/23/18 Range/Units 09:10 09:10 14:00 WBC (3.8-10.6) k/uL RBC (4.30-5.90) m/uL Hgb (13.0-17.5) gm/dL Hct (39.0-53.0) % MCV (80.0-100.0) fL MCH (25.0-35.0) pg MCHC (31.0-37.0) g/dL RDW (11.5-15.5) % Plt Count (150-450) k/uL Neutrophils % % Lymphocytes % % Monocytes % % Eosinophils % % Basophils % % Neutrophils # (1.3-7.7) k/uL Lymphocytes # (1.0-4.8) k/uL Monocytes # (0-1.0) k/uL Eosinophils # (0-0.7) k/uL Basophils # (0-0.2) k/uL Macrocytosis PT 10.8 (9.0-12.0) sec INR 1.0 (<1.2) APTT 23.0 (22.0-30.0) sec D-Dimer 0.28 (<0.60) mg/L FEU Sodium (137-145) mmol/L Potassium (3.5-5.1) mmol/L Chloride (98-107) mmol/L Carbon Dioxide (22-30) mmol/L Anion Gap mmol/L BUN (9-20) mg/dL Creatinine (0.66-1.25) mg/dL Est GFR (CKD-EPI)AfAm (>60 ml/min/1.73 sqM) Est GFR (CKD-EPI)NonAf (>60 ml/min/1.73 sqM) Glucose (74-99) mg/dL Calcium (8.4-10.2) mg/dL Magnesium (1.6-2.3) mg/dL Total Bilirubin (0.2-1.3) mg/dL AST (17-59) U/L ALT (21-72) U/L Alkaline Phosphatase (38-126) U/L Total Creatine Kinase 146 (55-170) U/L CK-MB (CK-2) 2.7 H (0.0-2.4) ng/mL CK-MB (CK-2) Rel Index 1.8 Troponin I <0.012 (0.000-0.034) ng/mL NT-Pro-B Natriuret Pep 113 pg/mL Total Protein (6.3-8.2) g/dL Albumin (3.5-5.0) g/dL - Radiology Data Radiology results: image reviewed (chest x-ray shows atelectasis) Critical Care Time Critical Care Time: Yes Total Critical Care Time: 32 Disposition Clinical Impression: Chest pain, Atrial fibrillation with RVR Disposition: HOME SELF-CARE Instructions: Chest Pain (ED), A-fib (Atrial Fibrillation) (ED) Additional Instructions: Please follow-up with Dr. Izaguirre tomorrow as planned. Please also follow-up with Dr. Salas this week as planned. Return for chest pain, increased heart rate, worsening or change in symptoms or any other concerns. Is patient prescribed a controlled substance at d/c from ED?: No Referrals: Mark Anthony Mckeon DO [Primary Care Provider] - 1-2 days Time of Disposition: 15:39
[2018-02-23] MEDS ORDERED: DILTIAZEM DRIP BOLUS FROM BAG 1 MG SOLN IV ONE (09:08)
[2018-02-23] MEDS ORDERED: DILTIAZEM 50 MG in SODIUM CHLORIDE 0.9% 40 ML IV SCH (09:15)
--- NOTE | 2018-02-23 09:29 | XR ---
EXAMINATION TYPE: XR chest 1V portable DATE OF EXAM: 02/23/2018 HISTORY: chest pain. REFERENCE: Previous study dated 06/23/2017. FINDINGS: There is colonic interposition on the right. Heart size upper limits of normal. There is some bibasilar atelectasis. I do not see evidence of pneu monia or edema. Pleural spaces are clear. IMPRESSION: MILD BIBASILAR ATELECTASIS.
[2018-02-23] MEDS ORDERED: SODIUM CHLORIDE 0.9% 500 ML 500 ML IV STA (09:30)
[2018-02-23 09:42] LABS: Basophils % (A) 0 %; Eosinophils # (A) 0.1 k/uL (0-0.7); Eosinophils % (A) 1 %; HGB 13.8 gm/dL (13.0-17.5); Lymphocytes # (A) 3.2 k/uL (1.0-4.8); Lymphocytes % (A) 49 %; MCH 33.7 pg (25.0-35.0); MCHC 33.5 g/dL (31.0-37.0); MCV 100.5 fL (80.0-100.0); Macrocytosis Slight; Mean Platelet Volume 7.1; Monocytes # (A) 0.4 k/uL (0-1.0); Monocytes % (A) 6 %; Neutrophils # (A) 2.6 k/uL (1.3-7.7); Neutrophils % (A) 40 %; Platelet Count 160 k/uL (150-450); RBC 4.08 m/uL (4.30-5.90); RDW 15.2 % (11.5-15.5); WBC 6.6 k/uL (3.8-10.6)
[2018-02-23 09:47] LABS: D-Dimer 0.28 mg/L FEU (<0.60); Prothrombin Time 10.8 sec (9.0-12.0)
[2018-02-23 09:49] LABS: ALT 26 U/L (21-72); AST 28 U/L (17-59); Alkaline Phosphatase 64 U/L (38-126); Anion Gap 11 mmol/L; Blood Urea Nitrogen 22 mg/dL (9-20); Calcium 9.6 mg/dL (8.4-10.2); Carbon Dioxide 20 mmol/L (22-30); Chloride 110 mmol/L (98-107); Glucose 95 mg/dL (74-99); Magnesium 1.8 mg/dL (1.6-2.3); Potassium 4.1 mmol/L (3.5-5.1); Sodium 141 mmol/L (137-145); Total Bilirubin 1.8 mg/dL (0.2-1.3); Total Protein 6.7 g/dL (6.3-8.2)
[2018-02-23 09:56] LABS: Creatine Kinase 193 U/L (55-170)
[2018-02-23 10:09] LABS: Creatine Kinase MB 3.3 ng/mL (0.0-2.4); Troponin I <0.012 ng/mL (0.000-0.034)
[2018-02-23 14:57] LABS: Creatine Kinase 146 U/L (55-170)
[2018-02-23 15:09] LABS: Creatine Kinase MB 2.7 ng/mL (0.0-2.4); Troponin I <0.012 ng/mL (0.000-0.034)
[2018-02-23 16:02] VITALS: BP 100/54; PULSE 65; RESP 13
== END 2018-02-23 16:10 | disposition home or self-care (01) ==
LOC: EC 08:50
DX: I48.91 Unspecified atrial fibrillation (principal); I25.10 Atherosclerotic heart disease of native coronary artery without angina pectoris; K21.9 Gastro-esophageal reflux disease without esophagitis; E78.5 Hyperlipidemia, unspecified; E07.9 Disorder of thyroid, unspecified; Z82.49 Family history of ischemic heart disease and other diseases of the circulatory system; Z87.891 Personal history of nicotine dependence; Z95.818 Presence of other cardiac implants and grafts; Z98.62 Peripheral vascular angioplasty status; Z79.82 Long term (current) use of aspirin; Z79.01 Long term (current) use of anticoagulants; Z79.890 Hormone replacement therapy; Z79.899 Other long term (current) drug therapy; Z88.6 Allergy status to analgesic agent; Z88.1 Allergy status to other antibiotic agents; Z88.5 Allergy status to narcotic agent; Z88.8 Allergy status to other drugs, medicaments and biological substances; Z91.048 Other nonmedicinal substance allergy status; Z53.29 Procedure and treatment not carried out because of patient's decision for other reasons
CPT/HCPCS: 36415; 71045; 80053; 82550; 82553; 83735; 83880; 84484; 85025; 85379; 85610; 85730; 93005; 96365; 96366; 96376; 99285

== ENCOUNTER → 2018-03-24 | Outpatient (CLI) | payer MEDICARE, OTHER ==
[2018-03-24 15:10] LABS: Partial Thromboplastin Time 28.3 sec (22.0-30.0); Prothrombin Time 19.7 sec (9.0-12.0)
== END ==
LOC: LABWHC1 12:12
PROVIDERS: ATTEND Physical Medicine & Rehabilitation
DX: M54.5 Low back pain (principal); E03.9 Hypothyroidism, unspecified; E78.5 Hyperlipidemia, unspecified; I11.9 Hypertensive heart disease without heart failure; M47.817 Spondylosis without myelopathy or radiculopathy, lumbosacral region; M96.1 Postlaminectomy syndrome, not elsewhere classified; M47.814 Spondylosis without myelopathy or radiculopathy, thoracic region; Z98.1 Arthrodesis status; Z68.25 Body mass index [BMI] 25.0-25.9, adult; Z51.81 Encounter for therapeutic drug level monitoring; Z79.01 Long term (current) use of anticoagulants
CPT/HCPCS: 36415; 85610; 85730

== ENCOUNTER → 2018-04-21 | Outpatient (CLI) | payer MEDICARE, OTHER ==
[2018-04-21 14:42] LABS: Blood Urea Nitrogen 18 mg/dL (9-20)
== END | disposition home or self-care (01) ==
LOC: LABWHC1 14:14
PROVIDERS: ATTEND Physical Medicine & Rehabilitation
DX: Z01.812 Encounter for preprocedural laboratory examination (principal); N28.9 Disorder of kidney and ureter, unspecified
CPT/HCPCS: 36415; 82565; 84520

== ENCOUNTER → 2018-04-22 | Outpatient (CLI) | payer MEDICARE, OTHER ==
--- NOTE | 2018-04-22 14:38 | PN ---
PROGRESS NOTE An 82-year-old male patient coming for a followup. He was struggling with his mask fit. I switched to an Air Touch model large size and on today's evaluation, he is doing better. His leak is down 26 L/minutes. AHI is down to 2, while on treatment. His was hospitalized for a hip fracture and he was not able to maintain the same compliancy. He is averaging around 3.8 hours of CPAP use over the past 1 month; however over the past week or so, the numbers are improving. He has no complaints, nose irritation, no ulceration is noted. The mask has provided this patient a good fit. PHYSICAL EXAMINATION: BP is 123/71, pulse 78, respirations 16, temperature 97.7, saturation 98% on room air. [place] score was 4. GENERAL APPEARANCE: Calm, comfortable. Head is atraumatic, normocephalic. Neck is supple. There is no JVD. No goiter or neck masses. LUNGS: Diminished, otherwise clear. HEART: Sounds are regular rate and rhythm. Normal S1, S2. No S3. No murmurs. Abdomen is soft, nontender. No organomegaly. EXTREMITIES: No edema. No cyanosis or clubbing. IMPRESSION: 1. Obstructive sleep apnea with an apnea-hypopnea index of 11, currently on CPAP pressure of 10. 2. Hypersomnia, improved. 3. Chronic bronchial asthma. 4. Paroxysmal atrial fibrillation, currently in sinus. 5. Hypothyroidism. 6. Hyperlipidemia. 7. Acid reflux. PLAN: 1. Keep same pressure. 2. Provide Air Touch mask, large size. 3. See me back in a year's time. Treatment is successful for now. MMODL / IJN: [id number] /
== END | disposition home or self-care (01) ==
LOC: SLEEP 12:50
PROVIDERS: ATTEND Internal Medicine Critical Care Medicine
DX: G47.33 Obstructive sleep apnea (adult) (pediatric) (principal); J45.909 Unspecified asthma, uncomplicated; I48.0 Paroxysmal atrial fibrillation; E03.9 Hypothyroidism, unspecified; E78.5 Hyperlipidemia, unspecified; K21.9 Gastro-esophageal reflux disease without esophagitis; Z99.89 Dependence on other enabling machines and devices

== ENCOUNTER → 2018-05-06 | Outpatient (CLI) | payer MEDICARE, OTHER ==
--- NOTE | 2018-05-06 10:14 | BD ---
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 Bone mineral density about the R hip (g/cm2): 0.891 Bone mineral density about the L hip (g/cm2): 0.950 T Score values are as follows: -----R Neck: -1.1 -----L Neck: -0.6 -----R Total: -0.2 -----L Total:-0.1 Bone mineral density about the L Wrist (g/cm2): 0.704 T Score values are as follows: -----Dist. R+U: 0.4 -----Prox. R+U:-0.2 -----Radius total: -0.7 IMPRESSION: Osteopenia (T Score between -2.5 and -1) with regards to the right femoral neck. There is slightly increased risk of fracture and the patient may be considered for treatment. Re-Screen 2-5 years. NOTE: T-SCORE=SD OF THE YOUNG ADULT MEAN.
== END | disposition home or self-care (01) ==
LOC: RADBDWWP 09:43
PROVIDERS: ATTEND Family Medicine
DX: M85.88 Other specified disorders of bone density and structure, other site (principal)
CPT/HCPCS: 77080

== ENCOUNTER 2018-12-11 08:47 | Inpatient (IN) | payer MEDICARE, OTHER ==
--- NOTE | 2018-12-11 08:52 | ED ---
General Adult HPI - General Stated complaint: CHEST PAIN Time Seen by Provider: 12/11/18 08:47 Source: RN notes reviewed - History of Present Illness Initial comments: This is an 83-year-old male with a past medical history significant for atrial fibrillation. Patient presents emergency Department this morning with a complaint of chest pain. Patient states the pain does not radiate anywhere. He states he is short of breath. Patient states he took 2 nitroglycerin and it did not seem to help his discomfort. EMS arrived they stated he was in atrial fibrillation with rapid ventricular response between the 130s and 160 beats a minute. Patient states he did not take his morning flecainide. Patient denies any diaphoretic episodes. Patient denies any nausea. Patient denies abdominal pain. Patient denies any lightheadedness or dizziness or near syncopal episode. He denies any calf pain or leg swelling. Patient denies being ill recently he denies any fever chills or cough. - Related Data Home Medications Medication Instructions Recorded Confirmed Aspirin EC [Ecotrin Low Dose] 81 mg PO DAILY@192909/23/13 12/11/18 Ezetimibe/Simvastatin [Vytorin 1 tab PO Q48H 09/23/13 12/11/18 10-20 mg Tablet] Furosemide [Lasix] 20 mg PO Q48H 09/23/13 12/11/18 Levothyroxine Sodium [Synthroid] 50 mcg PO DAILY@0609/23/13 12/11/18 Montelukast [Singulair] 10 mg PO DAILY@192909/23/13 12/11/18 Nitroglycerin Sl Tabs [Nitrostat] 0.4 mg SUBLINGUAL Q5M PRN 09/23/13 12/11/18 Omeprazole [PriLOSEC] 20 mg PO BID@0700,192909/23/13 12/11/18 Warfarin [Coumadin] 5 mg PO SUMOWEFRSA@192909/23/13 12/11/18 Albuterol Sulfate [Proair Hfa] 1 - 2 puff INHALATION RT-Q6H PRN 05/05/14 12/11/18 Flecainide Acetate [Tambocor] 100 mg PO BID@0700,192911/15/15 12/11/18 Warfarin Sodium 7.5 mg PO TUTH@1930 11/15/15 12/11/18 Acetaminophen Tab [Tylenol Tab] 500 mg PO Q6H PRN 12/11/18 12/11/18 Calcium Carbonate/Vitamin D3 1 tab PO BID@0700,192912/11/18 12/11/18 [Calcium 600-Vit D3 400 Tablet] Gabapentin [Neurontin] 300 mg PO HS 12/11/18 12/11/18 Allergies Allergy/AdvReac Type Severity Reaction Status Date / Time clarithromycin [From Biaxin] Allergy Unknown Rash/Hives Verified 12/11/18 09:02 indomethacin [From Indocin] AdvReac Severe states Verified 12/11/18 09:02 "severe asthma attack indomethacin sodium AdvReac Severe states Verified 12/11/18 09:02 [From Indocin] "severe asthma attack" morphine AdvReac Unknown Hallucinati Verified 12/11/18 09:02 ons spironolactone AdvReac Unknown DEVELOPED Verified 12/11/18 09:02 LUMP IN BREAST AND ENLARGEMENT PERFUME AdvReac Dyspnea Uncoded 12/11/18 09:02 Review of Systems ROS Statement: Those systems with pertinent positive or pertinent negative responses have been documented in the HPI. ROS Other: All systems not noted in ROS Statement are negative. Past Medical History Past Medical History: Atrial Fibrillation, Coronary Artery Disease (CAD), Chest Pain / Angina, GERD/Reflux, Hyperlipidemia, Osteoarthritis (OA), Thyroid Disorder Additional Past Medical History / Comment(s): HIATAL HERNIA. RARE GERD. History of Any Multi-Drug Resistant Organisms: None Reported Past Surgical History: Back Surgery, Heart Catheterization, Hernia Repair Additional Past Surgical History / Comment(s): CTR ARABELLA. ARABELLA CATARACTS. ING HERNIA X3. ARABELLA KNEE SURG. TRAUMATIC AMP 1/2LT 3RD FINGER. FX BACK REPAIR. shoulder surg Past Anesthesia/Blood Transfusion Reactions: Motion Sickness Past Psychological History: No Psychological Hx Reported Smoking Status: Former smoker Past Alcohol Use History: None Reported Past Drug Use History: None Reported - Past Family History Father History Unknown: Yes (Father secondary to bowel obstruction at age 69) Mother History Unknown: Yes (Mother from CAD CHF) Brother(s) History Unknown: Yes (5 brothers, one with leukemia, CAD with 4 stents, throat cancer) Sister(s) History Unknown: Yes (5 sisters one with GI cancer,) Daughter(s) History Unknown: Yes (2 daughters one with fibromyalgia) Son(s) History Unknown: Yes (2 sons healthy) General Exam - General Exam Comments Initial Comments: GENERAL: Patient is well-developed and well-nourished. Patient is nontoxic and well- hydrated and is in mild distress. ENT: Neck is soft and supple. No significant lymphadenopathy is noted. Oropharynx is clear. Moist mucous membranes. Neck has full range of motion without eliciting any pain. EYES: The sclera were anicteric and conjunctiva were pink and moist. Extraocular mov ements were intact and pupils were equal round and reactive to light. Eyelids were unremarkable. PULMONARY: Unlabored respirations. Good breath sounds bilaterally. No audible rales rhonchi or wheezing was noted. CARDIOVASCULAR: Patient is tachycardic and irregular at about 140 beats a minute ABDOMEN: Soft and nontender with normal bowel sounds. No palpable organomegaly was noted. There is no palpable pulsatile mass. SKIN: Skin is clear with no lesions or rashes and otherwise unremarkable. NEUROLOGIC: Patient is alert and oriented x3. Cranial nerves II through XII are grossly intact. Motor and sensory are also intact. Normal speech, volume and content. Symmetrical smile. MUSCULOSKELETAL: Normal extremities with adequate strength and full range of motion. No lower extremity swelling or edema. No calf tenderness. LYMPHATICS: No significant lymphadenopathy is noted PSYCHIATRIC: Normal psychiatric evaluation. Course Vital Signs 12/11/18 12/11/18 12/11/18 08:51 08:53 09:30 Temperature 97.6 F Pulse Rate 118 H 121 H Pulse Rate [ 120 H [employer] Member ] Respiratory 20 15 Rate Blood Pressure 111/88 115/74 O2 Sat by Pulse 97 98 Oximetry 12/11/18 12/11/18 09:49 10:00 Temperature Pulse Rate 108 H 89 Pulse Rate [ [employer] Member ] Respiratory 18 16 Rate Blood Pressure 88/63 92/70 O2 Sat by Pulse 99 Oximetry Medical Decision Making - Medical Decision Making EKG shows atrial fibrillation with rapid ventricular response with occasional PVC at 127 bpm QRS is 64 QT interval 332 QTC is 482. Patient's EKG shows no ST segment elevation or depression. Chest x-ray shows no acute abnormality. Patient was placed on Cardizem drip for the A. fib with rapid ventricular response. Patient was also given his morning flecainide that he did not take. I spoke with Dr. Garcia he agreed to admit the patient admitted the patient wrote admitting orders. I consult cardiology. - Lab Data Result diagrams: 12/11/18 08:50 12/11/18 08:50 Lab Results 12/11/18 12/11/18 12/11/18 Range/Units 08:50 08:50 08:50 WBC 4.8 (3.8-10.6) k/uL RBC 3.90 L (4.30-5.90) m/uL Hgb 12.9 L (13.0-17.5) gm/dL Hct 38.9 L (39.0-53.0) % MCV 99.6 (80.0-100.0) fL MCH 33.1 (25.0-35.0) pg MCHC 33.2 (31.0-37.0) g/dL RDW 15.0 (11.5-15.5) % Plt Count 148 L (150-450) k/uL Neutrophils % (Manual) 44 % Lymphocytes % (Manual) 44 % Monocytes % (Manual) 12 % Neutrophils # (Manual) 2.11 (1.3-7.7) k/uL Lymphocytes # (Manual) 2.11 (1.0-4.8) k/uL Monocytes # (Manual) 0.58 (0-1.0) k/uL Nucleated RBCs 0 (0-0) /100 WBC Manual Slide Review Performed Poikilocytosis (manual Present Macrocytosis Slight PT (9.0-12.0) sec INR (<1.2) APTT (22.0-30.0) sec Sodium 141 (137-145) mmol/L Potassium 4.0 (3.5-5.1) mmol/L Chloride 109 H (98-107) mmol/L Carbon Dioxide 23 (22-30) mmol/L Anion Gap 9 mmol/L BUN 12 (9-20) mg/dL Creatinine 0.80 (0.66-1.25) mg/dL Est GFR (CKD-EPI)AfAm >90 (>60 ml/min/1.73 sqM) Est GFR (CKD-EPI)NonAf 84 (>60 ml/min/1.73 sqM) Glucose 101 H (74-99) mg/dL Calcium 9.0 (8.4-10.2) mg/dL Magnesium 1.8 (1.6-2.3) mg/dL Total Bilirubin 1.0 (0.2-1.3) mg/dL AST 18 (17-59) U/L ALT 15 L (21-72) U/L Alkaline Phosphatase 61 (38-126) U/L Troponin I (0.000-0.034) ng/mL NT-Pro-B Natriuret Pep 90 pg/mL Total Protein 6.1 L (6.3-8.2) g/dL Albumin 3.4 L (3.5-5.0) g/dL 12/11/18 12/11/18 Range/Units 08:50 08:50 WBC (3.8-10.6) k/uL RBC (4.30-5.90) m/uL Hgb (13.0-17.5) gm/dL Hct (39.0-53.0) % MCV (80.0-100.0) fL MCH (25.0-35.0) pg MCHC (31.0-37.0) g/dL RDW (11.5-15.5) % Plt Count (150-450) k/uL Neutrophils % (Manual) % Lymphocytes % (Manual) % Monocytes % (Manual) % Neutrophils # (Manual) (1.3-7.7) k/uL Lymphocytes # (Manual) (1.0-4.8) k/uL Monocytes # (Manual) (0-1.0) k/uL Nucleated RBCs (0-0) /100 WBC Manual Slide Review Poikilocytosis (manual Macrocytosis PT 17.3 H (9.0-12.0) sec INR 1.7 H (<1.2) APTT 28.8 (22.0-30.0) sec Sodium (137-145) mmol/L Potassium (3.5-5.1) mmol/L Chloride (98-107) mmol/L Carbon Dioxide (22-30) mmol/L Anion Gap mmol/L BUN (9-20) mg/dL Creatinine (0.66-1.25) mg/dL Est GFR (CKD-EPI)AfAm (>60 ml/min/1.73 sqM) Est GFR (CKD-EPI)NonAf (>60 ml/min/1.73 sqM) Glucose (74-99) mg/dL Calcium (8.4-10.2) mg/dL Magnesium (1.6-2.3) mg/dL Total Bilirubin (0.2-1.3) mg/dL AST (17-59) U/L ALT (21-72) U/L Alkaline Phosphatase (38-126) U/L Troponin I <0.012 (0.000-0.034) ng/mL NT-Pro-B Natriuret Pep pg/mL Total Protein (6.3-8.2) g/dL Albumin (3.5-5.0) g/dL Critical Care Time Critical Care Time: Yes Total Critical Care Time: 35 Disposition Clinical Impression: Atrial fibrillation with rapid ventricular response, Unstable angina Disposition: ADMITTED IP TO THIS HOSP Is patient prescribed a controlled substance at d/c from ED?: No Referrals: Mark Anthony Mckeon DO [Primary Care Provider] - 1-2 days Time of Disposition: 10:18
[2018-12-11] MEDS ORDERED: SODIUM CHLORIDE 0.9% 500 ML 500 ML IV STA (08:54)
[2018-12-11] MEDS ORDERED: FLECAINIDE 50 MG TAB PO STA (08:55)
[2018-12-11] MEDS ORDERED: DILTIAZEM 125 MG in SODIUM CHLORIDE 0.9% 100 ML IV SCH (09:00)
[2018-12-11 09:09] LABS: HCT 38.9 % (39.0-53.0); HGB 12.9 gm/dL (13.0-17.5); MCH 33.1 pg (25.0-35.0); MCHC 33.2 g/dL (31.0-37.0); MCV 99.6 fL (80.0-100.0); Macrocytosis Slight; Mean Platelet Volume 6.2; Platelet Count 148 k/uL (150-450); WBC 4.8 k/uL (3.8-10.6)
[2018-12-11 09:15] LABS: INR 1.7 (<1.2); Partial Thromboplastin Time 28.8 sec (22.0-30.0); Prothrombin Time 17.3 sec (9.0-12.0)
--- NOTE | 2018-12-11 09:18 | XR ---
EXAMINATION TYPE: XR chest 2V DATE OF EXAM: 12/11/2018 COMPARISON: 02/23/18 HISTORY: Shortness of breath TECHNIQUE: Frontal and lateral views of the chest are obtained. FINDINGS: Scattered senescent parenchymal changes noted. Hyperinflation compatible with COPD. No evidence for infiltrate. No evidence for atelectasis. Heart size is stable. Mediastinal structures are stable and grossly unremarkable. No evidence for hilar prominence. Degenerative changes dorsal spine. IMPRESSION: 1. No evidence for acute pulmonary disease.
[2018-12-11 09:22] LABS: ALT 15 U/L (21-72); AST 18 U/L (17-59); African American GFR (CKD) >90 (>60 ml/min/1.73 sqM); Albumin 3.4 g/dL (3.5-5.0); Alkaline Phosphatase 61 U/L (38-126); Anion Gap 9 mmol/L; Blood Urea Nitrogen 12 mg/dL (9-20); Carbon Dioxide 23 mmol/L (22-30); Chloride 109 mmol/L (98-107); Glucose 101 mg/dL (74-99); Magnesium 1.8 mg/dL (1.6-2.3); Sodium 141 mmol/L (137-145); Total Protein 6.1 g/dL (6.3-8.2)
[2018-12-11 09:39] LABS: Lymphocytes # (M) 2.11 k/uL (1.0-4.8); Monocytes # (M) 0.58 k/uL (0-1.0); Neutrophils % (M) 44 %; Nucleated Red Blood Cells 0 /100 WBC (0-0); Poikilocytosis (M) Present; Total Cells Counted 100
[2018-12-11] MEDS ORDERED: SODIUM CHLORIDE 0.9% 500 ML 500 ML IV ONE (09:50)
[2018-12-11] MEDS ORDERED: NITROGLYCERIN SL TABS 0.4 MG TAB SUBLINGUAL PRN ×2 (10:18→11:24)
[2018-12-11] MEDS ORDERED: ALBUTEROL NEBULIZED 2.5 MG/3 ML INHALATION PRN (11:24)
[2018-12-11] MEDS ORDERED: FLECAINIDE ACETATE 100 MG PO SCH (11:24)
[2018-12-11] MEDS: PANTOPRAZOLE 40 MG TABLET PO SCH ×2 (14:05→20:02)
--- NOTE | 2018-12-11 14:08 | P.HPIM ---
History of Present Illness H&P Date: 12/11/18 Chief Complaint: Chest pain, A. fib with RVR. This is an 83-year-old male one of Dr. Mckeon with a previous medical history significant for CAD, hypertension and hypertensive cardio vascular disease, paroxysmal atrial flutter progression, hyperlipidemia, patient was brought into the emergency department at [facility] today in the morning after he had an episode of chest pain in the midchest with no radiation associated with increased shortness of breath and increased palpitation he did take 2 nitro glycerin 5 minutes apart without any relief he called EMS and EMS found him to be in A. fib with RVR heart rate is 100 3260 patient missed his flecainide the dose in the morning and he stated that he probably would've avoided coming to the ER if he took his medication, he has been under a lot of stress dealing with his who just left [facility] not too long ago and she has severe Parkinson disease with blue body dementia as well and he seems to be overwhelmed with her care and he is trying to apply for Medicaid so she can go back to [facility] as well. Initial evaluation in the ER was negative however because of the presentation he was admitted to the hospital his INR was subtherapeutic but upon investigating the patient he stated that he missed his Coumadin once last week. Review of Systems Constitutional: Reports weakness, Denies chronic headaches, Denies fever, Denies lethargy, Denies sweats, Denies weight gain Eyes: denies blurred vision, denies bulging eye, denies decreased vision Ears: deny: decreased hearing Ears, nose, mouth and throat: Denies dysphagia, Denies neck lump, Denies sore throat Cardiovascular: Reports chest pain, Reports decreased exercise tolerance, Reports rapid heart beat, Reports shortness of breath, Denies dyspnea on exertion, Denies leg edema, Denies lightheadedness, Denies syncope Respiratory: Denies congestion, Denies cough, Denies cough with sputum, Denies home oxygen, Denies respiratory infections, Denies sleep apnea, Denies snoring, Denies wheezing Gastrointestinal: Denies BRBPR, Denies excessive gas, Denies heartburn, Denies melena, Denies nausea, Denies vomiting Genitourinary: Denies dysuria, Denies nocturia Musculoskeletal: Denies myalgias Musculoskeletal: absent: ankle pain, ankle stiffness, ankle swelling, elbow pain, elbow stiffness, elbow swelling, foot pain, foot stiffness, foot swelling, hand pain, hand stiffness, hand swelling, hip pain, hip stiffness, hip swelling, knee pain, knee stiffness, knee swelling, shoulder pain, shoulder stiffness, shoulder swelling, wrist pain, wrist stiffness, wrist swelling Integumentary: Denies pruritus, Denies rash Neurological: Denies numbness, Denies weakness Psychiatric: Reports depression, Reports sleep disturbances, Denies anxiety, Denies suicidal ideation Endocrine: Denies fatigue, Denies weight change Past Medical History Past Medical History: Atrial Fibrillation, Asthma, Coronary Artery Disease (CAD), Chest Pain / Angina, GERD/Reflux, Hyperlipidemia, Osteoarthritis (OA), Sleep Apnea/CPAP/BIPAP, Thyroid Disorder Additional Past Medical History / Comment(s): Afib RVR, hiatal hernia, narrow esophagus, dysphagia with certain foods, arthritis in multiple joints, NATE without device, hypothyroid, bilateral tinnitis, anemia, bronchitis, seasonal allergies, sinus problems at times. 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 Past Psychological History: No Psychological Hx Reported Additional Psychological History / Comment(s): Pt resides with his spouse and is his spouse's caregiver. He uses a cane prn. He drives. Smoking Status: Former smoker (Patient used to smoke about pack every day smoked for about 26 years. Quit in 1974.) Past Alcohol Use History: None Reported Additional Past Alcohol Use History / Comment(s): Pt started smoking in 1949 and quit in 1974. Past Drug Use History: None Reported - Past Family History Father History Unknown: Yes (Father secondary to bowel obstruction at age 69) Additional Family Medical History / Comment(s): Father of a bowel obstruction at the age of 69yrs. Mother History Unknown: Yes (Mother from CAD CHF) Family Medical History: Congestive Heart Failure (CHF), Coronary Artery Disease (CAD), Diabetes Mellitus (Mother at age 75 from CAD, diabetes, blindness.) Brother(s) History Unknown: Yes Family Medical History: Coronary Artery Disease (CAD) (He shouldn't had 5 brothers to still alive one of them with CAD and multiple stents placement in the other one CAD and he had 3 brothers passed one from throat cancer 1 from l eukemia ended third one not sure the cause of .) Sister(s) History Unknown: Yes Family Medical History: Thyroid Disorder (Patient had 5 sisters 3 alive one with hypothyroidism bradycardia and GERD 1 is 93-year-old and the other one and sure of any health issues patient had a sister who from stomach cancer and the fifth 1 of unknown cause.) Daughter(s) History Unknown: Yes Family Medical History: Musculoskeletal Disorder (Patient has 2 daughters one of them is all right the other one with fibromyalgia and migraine headaches.) Son(s) History Unknown: Yes Family Medical History: Osteoarthritis (OA) (Patient has 2 sons one of them is a right the other one had a work accident ended up with osteoarthritis) Medications and Allergies Home Medications Medication Instructions Recorded Confirmed Type Aspirin EC [Ecotrin Low Dose] 81 mg PO DAILY@192909/23/13 12/11/18 History Ezetimibe/Simvastatin [Vytorin 1 tab PO Q48H 09/23/13 12/11/18 History 10-20 mg Tablet] Furosemide [Lasix] 20 mg PO Q48H 09/23/13 12/11/18 History Levothyroxine Sodium [Synthroid] 50 mcg PO DAILY@0600 09/23/13 12/11/18 History Montelukast [Singulair] 10 mg PO DAILY@192909/23/13 12/11/18 History Nitroglycerin Sl Tabs [Nitrostat] 0.4 mg SUBLINGUAL Q5M PRN 09/23/13 12/11/18 History Omeprazole [PriLOSEC] 20 mg PO BID@0700,192909/23/13 12/11/18 History Warfarin [Coumadin] 5 mg PO SUMOWEFRSA@192909/23/13 12/11/18 History Albuterol Sulfate [Proair Hfa] 1 - 2 puff INHALATION RT-Q6H PRN 05/05/14 12/11/18 History Flecainide Acetate [Tambocor] 100 mg PO BID@0700,192911/15/15 12/11/18 History Warfarin Sodium 7.5 mg PO TUTH@192911/15/15 12/11/18 History Acetaminophen Tab [Tylenol Tab] 500 mg PO Q6H PRN 12/11/18 12/11/18 History Calcium Carbonate/Vitamin D3 1 tab PO BID@0700,192912/11/18 12/11/18 History [Calcium 600-Vit D3 400 Tablet] Gabapentin [Neurontin] 300 mg PO HS 12/11/18 12/11/18 History Allergies Allergy/AdvReac Type Severity Reaction Status Date / Time clarithromycin [From Biaxin] Allergy Unknown Rash/Hives Verified 12/11/18 09:02 indomethacin [From Indocin] AdvReac Severe states Verified 12/11/18 09:02 "severe asthma attack indomethacin sodium AdvReac Severe states Verified 12/11/18 09:02 [From Indocin] "severe asthma attack" morphine AdvReac Unknown Hallucinati Verified 12/11/18 09:02 ons spironolactone AdvReac Unknown DEVELOPED Verified 12/11/18 09:02 LUMP IN BREAST AND ENLARGEMENT PERFUME AdvReac Dyspnea Uncoded 12/11/18 09:02 Physical Exam Vitals: Vital Signs Temp Pulse Pulse Resp BP BP Pulse Ox 12/11/18 12:00 98 F 61 20 120/68 99 12/11/18 11:00 67 16 114/69 97 12/11/18 10:30 122 H 16 110/74 12/11/18 10:00 89 16 92/70 12/11/18 09:49 108 H 18 88/63 99 12/11/18 09:30 121 H 15 115/74 98 12/11/18 08:53 120 H 12/11/18 08:51 97.6 F 118 H 20 111/88 97 Intake and Output 12/10/18 12/11/18 12/11/18 22:59 06:59 14:59 Intake Total 242.917 Output Total 100 Balance 142.917 Intake: Intake, IV Titration 2.917 Amount Diltiazem 125 mg In 2.917 Sodium Chloride 0.9% 100 ml @ 5 MG/HR 5 mls/hr IV .Q24H [facility] Rx#:[id number] Oral 240 Output: Urine 100 Other: Voiding Method Toilet Weight 68.946 kg HEENT: Head is atraumatic, neuro spot, pupils were equal round reactive to light and accommodation extraocular muscle movement were intact. Mucous membranes of the mouth are moist. Neck: Supple, no JVP, decreased carotid upstroke bilaterally. Chest: Decreased breath sound at bases, few rhonchi, no chest or uses, no chest wall tenderness, no intercostal retractions. Heart: First heart sound is depressed, second heart sound is normal, irregularly irregular due to atrial fibrillation, there is systolic ejection murmur 2/6 located left sternal border. Abdomen: Soft, nontender, nondistended, positive bowel sounds. Extremities: No edema no calf tenderness, dorsalis pedis +1 bilaterally. Neurologic examination: Patient is awake alert and oriented 3, cranial nerves III-12 appear grossly intact, muscle power 4 out of 5 in upper and lower extremities bilaterally, deep tendon reflexes were normal. Results CBC & Chem 7: 12/11/18 08:50 12/11/18 08:50 Labs: Abnormal Lab Results - Last 24 Hours (Table) 12/11/18 12/11/18 12/11/18 Range/Units 08:50 08:50 08:50 RBC 3.90 L (4.30-5.90) m/uL Hgb 12.9 L (13.0-17.5) gm/dL Hct 38.9 L (39.0-53.0) % Plt Count 148 L (150-450) k/uL PT 17.3 H (9.0-12.0) sec INR 1.7 H (<1.2) Chloride 109 H (98-107) mmol/L Glucose 101 H (74-99) mg/dL ALT 15 L (21-72) U/L Total Protein 6.1 L (6.3-8.2) g/dL Albumin 3.4 L (3.5-5.0) g/dL Thrombosis Risk Factor Assmnt - DVT/VTE Prophylaxis DVT/VTE Prophylaxis: Pharmacologic Prophylaxis ordered, Mechanical Prophylaxis ordered - Choose All That Apply Any of the Below Risk Factors Present?: Yes Other Risk Factors: Yes Each Risk Factor Represents 3 Points: Age 75 years or older Other congenital or acquired thrombophilia - If yes, enter type in comment: No Thrombosis Risk Factor Assessment Total Risk Factor Score: 3 Thrombosis Risk Factor Assessment Level: Moderate Risk Assessment and Plan Assessment: Assessment and plan: 1. Chest pain due to atrial fibrillation with rapid ventricular response. Continue patient on Cardizem 2.5 mg per hour for now, resume the patient's flecainide 100 mg orally twice every day, resume the patient Coumadin 7 have milligram orally Saturday and and 5 minute gram dose of the week, monitor the patient. INR, cardiology consultation, cardiac enzymes every 6 hours 2. 2. History of CAD. Continue patient on aspirin 81 mg once every day, Lipitor 10 mg orally once every day. 3. Paroxysmal atrial fibrillation currently in A. fib. Continue treatment as in paragraph #1. 4. Hyperlipidemia. Continue patient on Lipitor 10 mg orally once every day. 5. Hypothyroidism. Continue Synthroid 50 g orally once every day. 6. GERD. Continue with Protonix 40 mg orally once every day. 7. Neuropathy. Continue with gabapentin 300 mg at bedtime. 8. DVT prophylaxis. Currently on Coumadin. 9. GI prophylaxis. Continue PPI. 10. Admitted to inpatient. Estimate a length of stay 2 midnights. 11. Patient is full code.
[2018-12-11] MEDS: SUCRALFATE 1 GM TAB PO SCH ×3 (16:03→20:02)
[2018-12-11] MEDS ORDERED: MAG HYDROX/AL HYDROX/SIMETH 30 ML CUP PO PRN (17:35)
[2018-12-11] MEDS: CALCIUM CARB-VIT D 500MG-200UN 1 EACH TAB PO SCH (18:03)
[2018-12-11] MEDS ORDERED: ASPIRIN 81 MG PO SCH (19:30)
[2018-12-11] MEDS ORDERED: EZETIMIBE 10 MG TAB PO SCH ×2 (19:30)
[2018-12-11] MEDS ORDERED: WARFARIN 7.5 MG TAB PO SCH (19:30)
[2018-12-11] MEDS ORDERED: MONTELUKAST 10 MG TAB PO SCH (19:30)
[2018-12-11] MEDS ORDERED: ATORVASTATIN 10 MG TAB PO SCH (19:30)
[2018-12-11] MEDS ORDERED: GABAPENTIN 300 MG CAP PO SCH (21:00)
[2018-12-11] MEDS: FLECAINIDE 50 MG TAB PO SCH (21:43)
[2018-12-11] MEDS: ACETAMINOPHEN TAB 500 MG TAB PO PRN (23:56)
[2018-12-12] MEDS ORDERED: LEVOTHYROXINE 50 MCG TAB PO SCH (06:00)
[2018-12-12] MEDS: SUCRALFATE 1 GM TAB PO SCH ×2 (07:04→12:10)
[2018-12-12] MEDS: CALCIUM CARB-VIT D 500MG-200UN 1 EACH TAB PO SCH (07:04)
[2018-12-12] MEDS: PANTOPRAZOLE 40 MG TABLET PO SCH (07:04)
[2018-12-12] MEDS: FLECAINIDE 50 MG TAB PO SCH (07:04)
[2018-12-12] MEDS: ACETAMINOPHEN TAB 500 MG TAB PO PRN (07:04)
[2018-12-12 07:19] LABS: Basophils % (A) 0 %; Eosinophils # (A) 0.1 k/uL (0-0.7); Eosinophils % (A) 3 %; HCT 34.9 % (39.0-53.0); HGB 11.7 gm/dL (13.0-17.5); Lymphocytes % (A) 39 %; MCH 33.7 pg (25.0-35.0); MCHC 33.4 g/dL (31.0-37.0); Macrocytosis Slight; Mean Platelet Volume 6.2; Monocytes # (A) 0.2 k/uL (0-1.0); Monocytes % (A) 9 %; Neutrophils # (A) 1.2 k/uL (1.3-7.7); Neutrophils % (A) 46 %; Platelet Count 134 k/uL (150-450); RBC 3.46 m/uL (4.30-5.90); RDW 15.1 % (11.5-15.5); WBC 2.7 k/uL (3.8-10.6)
[2018-12-12 07:22] LABS: Prothrombin Time 19.3 sec (9.0-12.0)
[2018-12-12 07:37] LABS: ALT 18 U/L (21-72); AST 17 U/L (17-59); African American GFR (CKD) >90 (>60 ml/min/1.73 sqM); Albumin 2.9 g/dL (3.5-5.0); Alkaline Phosphatase 49 U/L (38-126); Anion Gap 4 mmol/L; Blood Urea Nitrogen 12 mg/dL (9-20); Calcium 8.5 mg/dL (8.4-10.2); Carbon Dioxide 28 mmol/L (22-30); Chloride 108 mmol/L (98-107); Cholesterol 114 mg/dL (<200); Glucose 91 mg/dL (74-99); HDL Cholesterol 32 mg/dL (40-60); LDL Cholesterol,Calculated 68 mg/dL (0-99); Sodium 140 mmol/L (137-145); Total Bilirubin 0.6 mg/dL (0.2-1.3); Total Protein 5.5 g/dL (6.3-8.2); Triglycerides 72 mg/dL (<150)
[2018-12-12 08:43] VITALS: RESP 16
[2018-12-12] MEDS ORDERED: ASPIRIN 325 MG TAB PO SCH (09:00)
[2018-12-12] MEDS ORDERED: VERAPAMIL 40 MG TAB PO SCH (09:30)
--- NOTE | 2018-12-12 09:35 | P.CRDCN ---
History of Present Illness History of present illness: Patient interviewed and examined, please see full dictation by Rosemary aRmirez Symptoms of chest discomfort and shortness of breath Patient was in A. fib with RVR up 130-140 beats a minute He is back in sinus rhythm now and his chest pain is virtually gone He does complain of some epigastric discomfort but his chronic enzymes are normal The gentleman stated that he was having hunger pains and he hadn't eaten since yesterday and was quite hungry and would like to eat His nurse would like to keep him nothing by mouth I instructed her to feed him His cardiac enzymes are normal I discussed this with the medical team spoke to Linda She is in agreement Recommend Continue flecainide 100 mg twice daily Add verapamil 40 mg twice daily I spoke to the patient in some detail and explained to him that the A. fib with RVR is inducing symptoms. This gentleman cannot feel the palpitations but he does state that he can feel his pulse and noted that he is in A. fib If possible taking an extra flecainide as well as verapamil 40 mg by mouth daily, pill in the pocket technique would be helpful in relieving his symptoms rather than nitroglycerin but certainly did not help him Past Medical History Past Medical History: Atrial Fibrillation, Asthma, Coronary Artery Disease (CAD), Chest Pain / Angina, GERD/Reflux, Hyperlipidemia, Osteoarthritis (OA), Sleep Apnea/CPAP/BIPAP, Thyroid Disorder Additional Past Medical History / Comment(s): Afib RVR, hiatal hernia, narrow esophagus, dysphagia with certain foods, arthritis in multiple joints, NATE without device, hypothyroid, bilateral tinnitis, anemia, bronchitis, seasonal allergies, sinus problems at times. 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 Past Psychological History: No Psychological Hx Reported Additional Psychological History / Comment(s): Pt resides with his spouse and is his spouse's caregiver. He uses a cane prn. He drives. Smoking Status: Former smoker (Patient used to smoke about pack every day smoked for about 26 years. Quit in 1974.) Past Alcohol Use History: None Reported Additional Past Alcohol Use History / Comment(s): Pt started smoking in 1949 and quit in 1974. Past Drug Use History: None Reported - Past Family History Father History Unknown: Yes (Father secondary to bowel obstruction at age 69) Additional Family Medical History / Comment(s): Father of a bowel obstruction at the age of 69yrs. Mother History Unknown: Yes (Mother from CAD CHF) Family Medical History: Congestive Heart Failure (CHF), Coronary Artery Disease (CAD), Diabetes Mellitus (Mother at age 75 from CAD, diabetes, blindness.) Brother(s) History Unknown: Yes Family Medical History: Coronary Artery Disease (CAD) (He shouldn't had 5 b rothers to still alive one of them with CAD and multiple stents placement in the other one CAD and he had 3 brothers passed one from throat cancer 1 from leukemia ended third one not sure the cause of .) Sister(s) History Unknown: Yes Family Medical History: Thyroid Disorder (Patient had 5 sisters 3 alive one with hypothyroidism bradycardia and GERD 1 is 93-year-old and the other one and sure of any health issues patient had a sister who from stomach cancer and the fifth 1 of unknown cause.) Daughter(s) History Unknown: Yes Family Medical History: Musculoskeletal Disorder (Patient has 2 daughters one of them is all right the other one with fibromyalgia and migraine headaches.) Son(s) History Unknown: Yes Family Medical History: Osteoarthritis (OA) (Patient has 2 sons one of them is a right the other one had a work accident ended up with osteoarthritis) Medications and Allergies Home Medications Medication Instructions Recorded Confirmed Type Aspirin EC [Ecotrin Low Dose] 81 mg PO DAILY@1930 09/23/13 12/11/18 History Ezetimibe/Simvastatin [Vytorin 1 tab PO Q48H 09/23/13 12/11/18 History 10-20 mg Tablet] Furosemide [Lasix] 20 mg PO Q48H 09/23/13 12/11/18 History Levothyroxine Sodium [Synthroid] 50 mcg PO DAILY@0609/23/13 12/11/18 History Montelukast [Singulair] 10 mg PO DAILY@192909/23/13 12/11/18 History Nitroglycerin Sl Tabs [Nitrostat] 0.4 mg SUBLINGUAL Q5M PRN 09/23/13 12/11/18 History Omeprazole [PriLOSEC] 20 mg PO BID@0700,192909/23/13 12/11/18 History Warfarin [Coumadin] 5 mg PO SUMOWEFRSA@192909/23/13 12/11/18 History Albuterol Sulfate [Proair Hfa] 1 - 2 puff INHALATION RT-Q6H PRN 05/05/14 12/11/18 History Flecainide Acetate [Tambocor] 100 mg PO BID@0700,192911/15/15 12/11/18 History Warfarin Sodium 7.5 mg PO TUTH@192911/15/15 12/11/18 History Acetaminophen Tab [Tylenol Tab] 500 mg PO Q6H PRN 12/11/18 12/11/18 History Calcium Carbonate/Vitamin D3 1 tab PO BID@0700,192912/11/18 12/11/18 History [Calcium 600-Vit D3 400 Tablet] Gabapentin [Neurontin] 300 mg PO HS 12/11/18 12/11/18 History Allergies Allergy/AdvReac Type Severity Reaction Status Date / Time clarithromycin [From Biaxin] Allergy Unknown Rash/Hives Verified 12/11/18 09:02 indomethacin [From Indocin] AdvReac Severe states Verified 12/11/18 09:02 "severe asthma attack indomethacin sodium AdvReac Severe states Verified 12/11/18 09:02 [From Indocin] "severe asthma attack" morphine AdvReac Unknown Hallucinati Verified 12/11/18 09:02 ons spironolactone AdvReac Unknown DEVELOPED Verified 12/11/18 09:02 LUMP IN BREAST AND ENLARGEMENT PERFUME AdvReac Dyspnea Uncoded 12/11/18 09:02 Physical Exam Vitals: Vital Signs Temp Pulse Pulse Resp BP BP Pulse Ox 12/12/18 08:00 98 F 55 L 16 123/67 98 12/12/18 04:00 97.6 F 55 L 18 131/64 99 12/12/18 00:00 98.8 F 68 17 108/50 98 12/11/18 20:00 98.5 F 69 17 104/50 95 12/11/18 18:06 66 96 12/11/18 16:00 16 12/11/18 15:56 98.2 F 64 16 103/53 98 12/11/18 12:00 98 F 61 20 120/68 99 12/11/18 11:00 67 16 114/69 97 12/11/18 10:30 122 H 16 110/74 12/11/18 10:00 89 16 92/70 12/11/18 09:49 108 H 18 88/63 99 Intake and Output 12/11/18 12/12/18 12/12/18 22:59 06:59 14:59 Intake Total 255.542 Output Total 800 600 Balance -544.458 -600 Intake: Intake, IV Titration 15.542 Amount Diltiazem 125 mg In 15.542 Sodium Chloride 0.9% 100 ml @ 5 MG/HR 5 mls/hr IV .Q24H [facility] Rx#:[id number] Oral 240 Output: Urine 800 600 Other: Voiding Method Toilet Toilet # Voids 1 3 Weight 71.2 kg Results 12/12/18 06:49 12/12/18 06:49 Cardiac Enzymes 12/11/18 12/11/18 12/11/18 Range/Units 08:50 14:51 20:26 AST (17-59) U/L Troponin I <0.012 <0.012 <0.012 (0.000-0.034) ng/mL 12/12/18 Range/Units 06:49 AST 17 (17-59) U/L Troponin I (0.000-0.034) ng/mL Coagulation 12/12/18 Range/Units 06:49 PT 19.3 H (9.0-12.0) sec Lipids 12/12/18 Range/Units 06:49 Triglycerides 72 (<150) mg/dL Cholesterol 114 (<200) mg/dL HDL Cholesterol 32 L (40-60) mg/dL CBC 12/12/18 Range/Units 06:49 WBC 2.7 L (3.8-10.6) k/uL RBC 3.46 L (4.30-5.90) m/uL Hgb 11.7 L (13.0-17.5) gm/dL Hct 34.9 L (39.0-53.0) % Plt Count 134 L (150-450) k/uL Comprehensive Metabolic Panel 12/12/18 Range/Units 06:49 Sodium 140 (137-145) mmol/L Potassium 4.0 (3.5-5.1) mmol/L Chloride 108 H (98-107) mmol/L Carbon Dioxide 28 (22-30) mmol/L BUN 12 (9-20) mg/dL Creatinine 0.75 (0.66-1.25) mg/dL Glucose 91 (74-99) mg/dL Calcium 8.5 (8.4-10.2) mg/dL AST 17 (17-59) U/L ALT 18 L (21-72) U/L Alkaline Phosphatase 49 (38-126) U/L Total Protein 5.5 L (6.3-8.2) g/dL Albumin 2.9 L (3.5-5.0) g/dL Current Medications Generic Name Dose Route Start Last Admin Trade Name Freq PRN Reason Stop Dose Admin Acetaminophen 500 mg 12/11/18 11:24 12/12/18 07:04 Tylenol Tab PO 500 mg Q6H PRN Administration PAIN OR FEVER Al Hydroxide/Mg Hydroxide 30 ml 12/11/18 17:35 12/11/18 23:56 Maalox PO 30 ml Q4HR PRN Administration GI Upset Albuterol Sulfate 2.5 mg 12/11/18 11:24 Ventolin Nebulized INHALATION RT-Q6H PRN Shortness Of Breath Aspirin 81 mg 12/11/18 19:30 12/11/18 23:55 Aspirin PO Not Given DAILY@193 [facility] Atorvastatin Calcium 10 mg 12/11/18 19:30 12/11/18 21:44 Lipitor PO 10 mg Q48H [facility] Administration Calcium Carbonate 1 each 12/11/18 19:30 12/12/18 07:04 Oscal 500+D PO 1 each BID@07,1929 [facility] Administration Ezetimibe 10 mg 12/11/18 19:30 12/11/18 23:55 Zetia PO Not Given Q48H [facility] Flecainide Acetate 100 mg 12/11/18 19:30 12/12/18 07:04 Tambocor PO 100 mg BID@ [facility] Administration Gabapentin 300 mg 12/11/18 21:00 12/11/18 21:44 Neurontin PO 300 mg HS [facility] Administration Levothyroxine Sodium 50 mcg 12/12/18 06:00 12/12/18 07:04 Synthroid PO 50 mcg DAILY@06 [facility] Administration Montelukast Sodium 10 mg 12/11/18 19:30 12/11/18 21:44 Singulair PO 10 mg DAILY@1929 [facility] Administration Nitroglycerin 0.4 mg 12/11/18 11:24 Nitrostat SUBLINGUAL Q5M PRN Chest Pain Pantoprazole Sodium 40 mg 12/11/18 19:30 12/12/18 07:04 Protonix PO 40 mg BID@ [facility] Administration Sucralfate 1 gm 12/11/18 16:00 12/12/18 07:04 Carafate PO 1 gm ACHS [facility] Administration Verapamil HCl 40 mg 12/12/18 09:30 Isoptin PO BID [facility] Warfarin Sodium 5 mg 12/12/18 19:30 Coumadin PO SUMOWEFRSA@1929 [facility] Warfarin Sodium 7.5 mg 12/11/18 19:30 12/11/18 18:03 Coumadin PO 7.5 mg TUTH@1929 [facility] Administration Intake and Output 12/11/18 12/12/18 12/12/18 22:59 06:59 14:59 Intake Total 255.542 Output Total 800 600 Balance -544.458 -600 Intake: Intake, IV Titration 15.542 Amount Diltiazem 125 mg In 15.542 Sodium Chloride 0.9% 100 ml @ 5 MG/HR 5 mls/hr IV .Q24H [facility] Rx#:[id number] Oral 240 Output: Urine 800 600 Other: Voiding Method Toilet Toilet # Voids 1 3 Weight 71.2 kg 12/12/18 06:49 12/12/18 06:49
--- NOTE | 2018-12-12 13:26 | P.CRDCN ---
History of Present Illness History of present illness: This is Rosemary Ramirez PA-C dictating a consult on this patient The patient was interviewed and examined by me as well as by Dr. Estrella Case discussed with Dr. Estrella and he agrees with the plan of care IMPRESSION / ASSESSMENT: Paroxysmal atrial fibrillation with RVR, breaking through on flecainide 100 mg twice daily, currently in sinus rhythm, anticoagulated with Coumadin Hypertension Asthma CAD Hypothyroidism Dyslipidemia PLAN: Start verapamil 40 mg twice a day for rate control, monitor for bradycardia Continue flecainide 100 mg twice a day, patient may take an extra flecainide if he has these symptoms again Continue anticoagulation with Coumadin Follow-up outpatient to discuss further options for atrial fibrillation management in the future HPI Patient is an 83-year-old male with a past medical history significant for hypertension, asthma, paroxysmal atrial fibrillation, CAD, hypothyroidism and dyslipidemia who presented with complaints of chest discomfort. He follows with Dr. Izaguirre in the office. Patient states he woke up yesterday morning with chest discomfort which she describes as a sharp intense pain in the center of his chest with some associated shortness of breath. No palpitations or dizziness. He is on flecainide 100 mg twice a day for atrial fibrillation and states he took his flecainide the night before. Patient tried taking 2 sublingu al nitro which did not relief the pain. Upon presentation to the emergency department EKG showed atrial fibrillation with RVR, rate 127, narrow QRS, no ST or T-wave abnormalities. Troponins were negative. He was started on IV Cardizem and converted to sinus rhythm. His symptoms resolved. Patient seen and examined resting in bed. Complains that he has a stomachache because he is hungry. Denies any chest pain, shortness of breath, dizziness, palpitations. States he is eager to get home and take care of his sick who has Parkinson's. ROS: No fevers, chills or rigors, no cough, phlegm or expectoration, no nausea, vomiting or diarrhea, no hematuria, dysuria, no musculoskeletal complaints, no strokes or seizures, no skin lesions. EXAMINATION: Temperature 98.7F, pulse 60, respirations 16, blood pressure 119/68, oxygen saturation 98% on room air Patient seen and examined resting comfortably in bed, in no acute distress Lungs clear to auscultation bilaterally, no wheezing rhonchi or crackles Heart is regular, normal S1-S2, no murmurs noted No elevated JVD No lower extremity edema Abdomen soft nontender REVIEW OF LABS, ECG & MEDICAL DATA WBC 2.7, hemoglobin 11.7, platelets 134, INR 2.0, potassium 4.0, BUN 12, creatinine 0.75, Troponin negative 3 TSH within normal limits at 2.86 Past Medical History Past Medical History: Atrial Fibrillation, Asthma, Coronary Artery Disease (CAD), Chest Pain / Angina, GERD/Reflux, Hyperlipidemia, Osteoarthritis (OA), Sleep Apnea/CPAP/BIPAP, Thyroid Disorder Additional Past Medical History / Comment(s): Afib RVR, hiatal hernia, narrow esophagus, dysphagia with certain foods, arthritis in multiple joints, NATE without device, hypothyroid, bilateral tinnitis, anemia, bronchitis, seasonal allergies, sinus problems at times. History of Any Multi-Drug Resistant Organisms: None Reported Past Surgical History: Adenoidectomy, Back Surgery, Heart Catheterization, Hernia Repair, Joint Replacement, Orthopedic Surgery, Tonsillectomy Additional Past Surgical History / Comment(s): 2006 coronary angioplasty-unable to deploy stent, 2011 cardiac cath, back fracture with repair, L shoulder rotato r cuff repair, bilateral carpal tunnel releases, bilateral knee arthroscopies, R knee patellar surgery, traumatic amputation L 3rd finger, cervical and thoracic pain procedures, EGD, colonoscopies/benign polyps, bilateral cataract removals Past Anesthesia/Blood Transfusion Reactions: Motion Sickness Additional Past Anesthesia/Blood Transfusion Reaction / Comment(s): Pt received blood in 2007 without reaction. Past Psychological History: No Psychological Hx Reported Additional Psychological History / Comment(s): Pt resides with his spouse and is his spouse's caregiver. He uses a cane prn. He drives. Smoking Status: Former smoker (Patient used to smoke about pack every day smoked for about 26 years. Quit in 1974.) Past Alcohol Use History: None Reported Additional Past Alcohol Use History / Comment(s): Pt started smoking in 1949 and quit in 1974. Past Drug Use History: None Reported - Past Family History Father History Unknown: Yes (Father secondary to bowel obstruction at age 69) Additional Family Medical History / Comment(s): Father of a bowel obstruction at the age of 69yrs. Mother History Unknown: Yes (Mother from CAD CHF) Family Medical History: Congestive Heart Failure (CHF), Coronary Artery Disease (CAD), Diabetes Mellitus (Mother at age 75 from CAD, diabetes, blindness.) Brother(s) History Unknown: Yes Family Medical History: Coronary Artery Disease (CAD) (He shouldn't had 5 brothers to still alive one of them with CAD and multiple stents placement in th e other one CAD and he had 3 brothers passed one from throat cancer 1 from leukemia ended third one not sure the cause of .) Sister(s) History Unknown: Yes Family Medical History: Thyroid Disorder (Patient had 5 sisters 3 alive one with hypothyroidism bradycardia and GERD 1 is 93-year-old and the other one and sure of any health issues patient had a sister who from stomach cancer and the fifth 1 of unknown cause.) Daughter(s) History Unknown: Yes Family Medical History: Musculoskeletal Disorder (Patient has 2 daughters one of them is all right the other one with fibromyalgia and migraine headaches.) Son(s) History Unknown: Yes Family Medical History: Osteoarthritis (OA) (Patient has 2 sons one of them is a right the other one had a work accident ended up with osteoarthritis) Medications and Allergies Home Medications Medication Instructions Recorded Confirmed Type Aspirin EC [Ecotrin Low Dose] 81 mg PO DAILY@192909/23/13 12/11/18 History Ezetimibe/Simvastatin [Vytorin 1 tab PO Q48H 09/23/13 12/11/18 History 10-20 mg Tablet] Furosemide [Lasix] 20 mg PO Q48H 09/23/13 12/11/18 History Levothyroxine Sodium [Synthroid] 50 mcg PO DAILY@0609/23/13 12/11/18 History Montelukast [Singulair] 10 mg PO DAILY@192909/23/13 12/11/18 History Nitroglycerin Sl Tabs [Nitrostat] 0.4 mg SUBLINGUAL Q5M PRN 09/23/13 12/11/18 History Omeprazole [PriLOSEC] 20 mg PO BID@0700,192909/23/13 12/11/18 History Warfarin [Coumadin] 5 mg PO SUMOWEFRSA@192909/23/13 12/11/18 History Albuterol Sulfate [Proair Hfa] 1 - 2 puff INHALATION RT-Q6H PRN 05/05/14 12/11/18 History Flecainide Acetate [Tambocor] 100 mg PO BID@0700,192911/15/15 12/11/18 History Warfarin Sodium 7.5 mg PO TUTH@192911/15/15 12/11/18 History Acetaminophen Tab [Tylenol] 500 mg PO Q6H PRN 12/11/18 12/11/18 History Calcium Carbonate/Vitamin D3 1 tab PO BID@0700,192912/11/18 12/11/18 History [Calcium 600-Vit D3 400 Tablet] Gabapentin [Neurontin] 300 mg PO HS 12/11/18 12/11/18 History Sucralfate [Carafate] 1 gm PO AC-BID #60 tab 12/12/18 Rx Verapamil [Isoptin] 40 mg PO BID #60 tab 12/12/18 Rx Allergies Allergy/AdvReac Type Severity Reaction Status Date / Time clarithromycin [From Biaxin] Allergy Unknown Rash/Hives Verified 12/11/18 09:02 indomethacin [From Indocin] AdvReac Severe states Verified 12/11/18 09:02 "severe asthma attack indomethacin sodium AdvReac Severe states Verified 12/11/18 09:02 [From Indocin] "severe asthma attack" morphine AdvReac Unknown Hallucinati Verified 12/11/18 09:02 ons spironolactone AdvReac Unknown DEVELOPED Verified 12/11/18 09:02 LUMP IN BREAST AND ENLARGEMENT PERFUME AdvReac Dyspnea Uncoded 12/11/18 09:02 Physical Exam Vitals: Vital Signs Temp Pulse Resp BP Pulse Ox 12/12/18 11:44 97.8 F 60 16 119/68 98 12/12/18 08:00 98 F 55 L 16 123/67 98 12/12/18 04:00 97.6 F 55 L 18 131/64 99 12/12/18 00:00 98.8 F 68 17 108/50 98 12/11/18 20:00 98.5 F 69 17 104/50 95 12/11/18 18:06 66 96 12/11/18 16:00 16 12/11/18 15:56 98.2 F 64 16 103/53 98 Intake and Output 12/11/18 12/12/18 12/12/18 22:59 06:59 14:59 Intake Total 255.542 400 Output Total 800 600 Balance -544.458 -600 400 Intake: Intake, IV Titration 15.542 Amount Diltiazem 125 mg In 15.542 Sodium Chloride 0.9% 100 ml @ 5 MG/HR 5 mls/hr IV .Q24H [facility] Rx#:[id number] Oral 240 400 Output: Urine 800 600 Other: Voiding Method Toilet Toilet Toilet # Voids 1 3 Weight 71.2 kg Results 12/12/18 06:49 12/12/18 06:49 Cardiac Enzymes 12/11/18 12/11/18 12/12/18 Range/Units 14:51 20:26 06:49 AST 17 (17-59) U/L Troponin I <0.012 <0.012 (0.000-0.034) ng/mL Coagulation 12/12/18 Range/Units 06:49 PT 19.3 H (9.0-12.0) sec Lipids 12/12/18 Range/Units 06:49 Triglycerides 72 (<150) mg/dL Cholesterol 114 (<200) mg/dL HDL Cholesterol 32 L (40-60) mg/dL CBC 12/12/18 Range/Units 06:49 WBC 2.7 L (3.8-10.6) k/uL RBC 3.46 L (4.30-5.90) m/uL Hgb 11.7 L (13.0-17.5) gm/dL Hct 34.9 L (39.0-53.0) % Plt Count 134 L (150-450) k/uL Comprehensive Metabolic Panel 12/12/18 Range/Units 06:49 Sodium 140 (137-145) mmol/L Potassium 4.0 (3.5-5.1) mmol/L Chloride 108 H (98-107) mmol/L Carbon Dioxide 28 (22-30) mmol/L BUN 12 (9-20) mg/dL Creatinine 0.75 (0.66-1.25) mg/dL Glucose 91 (74-99) mg/dL Calcium 8.5 (8.4-10.2) mg/dL AST 17 (17-59) U/L ALT 18 L (21-72) U/L Alkaline Phosphatase 49 (38-126) U/L Total Protein 5.5 L (6.3-8.2) g/dL Albumin 2.9 L (3.5-5.0) g/dL Current Medications Generic Name Dose Route Start Last Admin Trade Name Freq PRN Reason Stop Dose Admin Acetaminophen 500 mg 12/11/18 11:24 12/12/18 07:04 Tylenol Tab PO 500 mg Q6H PRN Administration PAIN OR FEVER Al Hydroxide/Mg Hydroxide 30 ml 12/11/18 17:35 12/11/18 23:56 Maalox PO 30 ml Q4HR PRN Administration GI Upset Albuterol Sulfate 2.5 mg 12/11/18 11:24 Ventolin Nebulized INHALATION RT-Q6H PRN Shortness Of Breath Aspirin 81 mg 12/11/18 19:30 12/11/18 23:55 Aspirin PO Not Given DAILY@1929 [facility] Atorvastatin Calcium 10 mg 12/11/18 19:30 12/11/18 21:44 Lipitor PO 10 mg Q48H [facility] Administration Calcium Carbonate 1 each 12/11/18 19:30 12/12/18 07:04 Oscal 500+D PO 1 each BID@ [facility] Administration Ezetimibe 10 mg 12/11/18 19:30 12/11/18 23:55 Zetia PO Not Given Q48H [facility] Flecainide Acetate 100 mg 12/11/18 19:30 12/12/18 07:04 Tambocor PO 100 mg BID@ [facility] Administration Gabapentin 300 mg 12/11/18 21:00 12/11/18 21:44 Neurontin PO 300 mg HS [facility] Administration Levothyroxine Sodium 50 mcg 12/12/18 06:00 12/12/18 07:04 Synthroid PO 50 mcg DAILY@06 [facility] Administration Montelukast Sodium 10 mg 12/11/18 19:30 12/11/18 21:44 Singulair PO 10 mg DAILY@1929 [facility] Administration Nitroglycerin 0.4 mg 12/11/18 11:24 Nitrostat SUBLINGUAL Q5M PRN Chest Pain Pantoprazole Sodium 40 mg 12/11/18 19:30 12/12/18 07:04 Protonix PO 40 mg BID@ [facility] Administration Sucralfate 1 gm 12/11/18 16:00 12/12/18 12:10 Carafate PO 1 gm ACHS [facility] Administration Verapamil HCl 40 mg 12/12/18 09:30 12/12/18 09:39 Isoptin PO 40 mg BID [facility] Administration Warfarin Sodium 5 mg 12/12/18 19:30 Coumadin PO SUMOWEFRSA@1929 [facility] Warfarin Sodium 7.5 mg 12/11/18 19:30 12/11/18 18:03 Coumadin PO 7.5 mg TUTH@1930 [facility] Administration Intake and Output 12/11/18 12/12/18 12/12/18 22:59 06:59 14:59 Intake Total 255.542 400 Output Total 800 600 Balance -544.458 -600 400 Intake: Intake, IV Titration 15.542 Amount Diltiazem 125 mg In 15.542 Sodium Chloride 0.9% 100 ml @ 5 MG/HR 5 mls/hr IV .Q24H [facility] Rx#:[id number] Oral 240 400 Output: Urine 800 600 Other: Voiding Method Toilet Toilet Toilet # Voids 1 3 Weight 71.2 kg 12/12/18 06:49 12/12/18 06:49
--- NOTE | 2018-12-12 15:12 | P.DS ---
Providers Date of admission: 12/11/18 10:18 Expected date of discharge: 12/12/18 Attending physician: Marleni Garcia Consults: 12/11/18 10:18 Consult Physician Urgent Consulting Provider: [facility] Consult Reason/Comments: Unstable angina, A. fib with rapid ventricular response Do you want consulting provider notified?: Yes [facility] care physician: [facility]: This is an 83-year-old male one of Dr. Mckeon with a previous medical history significant for CAD, hypertension and hypertensive cardio vascular disease, paroxysmal atrial flutter progression, hyperlipidemia, patient was brought into the emergency department at [facility] today in the morning after he had an episode of chest pain in the midchest with no radiation associated with increased shortness of breath and increased palpitation he did take 2 nitro glycerin 5 minutes apart without any relief he called EMS and EMS found him to be in A. fib with RVR heart rate is 100 [id number] patient missed his flecainide the dose in the morning and he stated that he probably would've avoided coming to the ER if he took his medication, he has been under a lot of stress dealing with his who just left [facility] not too long ago and she has severe Parkinson disease with blue body dementia as well and he seems to be overwhelmed with her care and he is trying to apply for Medicaid so she can go back to [facility] as well. Initial evaluation in the ER was negative however because of the presentation he was admitted to the hospital his INR was subtherapeutic but upon investigating the patient he stated that he missed his Coumadin once last week. 12/12: The patient has been seen this morning by Dr. Estrella and he feels the atrial fibrillation is causing epigastric discomfort. Patient has been instructed to continue flecainide 100 mg twice daily, verapamil 40 g twice daily was added. Patient was instructed by cardiology to take an additional dose when he is feeling fluttering feeling. Yesterday he was having epigastric discomfort for which Protonix was increased to twice daily and Carafate was added. Due to continued epigastric pain and tenderness, no bladder ultrasound will be ordered. If this is normal, patient will be discharged home today in stable condition. Abdominal ultrasound reported as suboptimal study without suspicious acute finding identified. Discharge diagnoses: 1. Chest pain due to atrial fibrillation with rapid ventricular response. 2. History of CAD. 3. Paroxysmal atrial fibrillation currently in A. fib. 4. Hyperlipidemia. 5. Hypothyroidism. 6. GERD. 7. Neuropathy. 8. Epigastric pain secondary to gastritis. Discharge plan: Home Impression and plan of care have been directed as dictated by the signing physician. Linda Dorado nurse practitioner acting as scribe for signing physician. Patient Condition at Discharge: Good Plan - Discharge Summary Discharge Rx Participant: No New Discharge Prescriptions: New Sucralfate [Carafate] 1 gm PO AC-BID #60 tab Verapamil [Isoptin] 40 mg PO BID #60 tab Continue Nitroglycerin Sl Tabs [Nitrostat] 0.4 mg SUBLINGUAL Q5M PRN PRN Reason: Chest Pain Montelukast [Singulair] 10 mg PO DAILY@1929 Warfarin [Coumadin] 5 mg PO SUMOWEFRSA@1929 Ezetimibe/Simvastatin [Vytorin 10-20 mg Tablet] 1 tab PO Q48H Aspirin EC [Ecotrin Low Dose] 81 mg PO DAILY@1929 Omeprazole [PriLOSEC] 20 mg PO BID@ Levothyroxine Sodium [Synthroid] 50 mcg PO DAILY@599 Furosemide [Lasix] 20 mg PO Q48H Albuterol Sulfate [Proair Hfa] 1 - 2 puff INHALATION RT-Q6H PRN PRN Reason: Shortness Of Breath Flecainide Acetate [Tambocor] 100 mg PO BID@699,1929 Warfarin Sodium 7.5 mg PO TUTH@1929 Acetaminophen Tab [Tylenol] 500 mg PO Q6H PRN PRN Reason: PAIN OR FEVER Calcium Carbonate/Vitamin D3 [Calcium 600-Vit D3 400 Tablet] 1 tab PO BID@699,1929 Gabapentin [Neurontin] 300 mg PO HS Discharge Medication List Aspirin EC [Ecotrin Low Dose] 81 mg PO DAILY@192909/23/13 [History] Ezetimibe/Simvastatin [Vytorin 10-20 mg Tablet] 1 tab PO Q48H 09/23/13 [History] Furosemide [Lasix] 20 mg PO Q48H 09/23/13 [History] Levothyroxine Sodium [Synthroid] 50 mcg PO DAILY@0609/23/13 [History] Montelukast [Singulair] 10 mg PO DAILY@192909/23/13 [History] Nitroglycerin Sl Tabs [Nitrostat] 0.4 mg SUBLINGUAL Q5M PRN 09/23/13 [History] Omeprazole [PriLOSEC] 20 mg PO BID@07,192909/23/13 [History] Warfarin [Coumadin] 5 mg PO SUMOWEFRSA@192909/23/13 [History] Albuterol Sulfate [Proair Hfa] 1 - 2 puff INHALATION RT-Q6H PRN 05/05/14 [History] Flecainide Acetate [Tambocor] 100 mg PO BID@07,192911/15/15 [History] Warfarin Sodium 7.5 mg PO TUTH@192911/15/15 [History] Acetaminophen Tab [Tylenol] 500 mg PO Q6H PRN 12/11/18 [History] Calcium Carbonate/Vitamin D3 [Calcium 600-Vit D3 400 Tablet] 1 tab PO BID@07,192912/11/18 [History] Gabapentin [Neurontin] 300 mg PO HS 12/11/18 [History] Sucralfate [Carafate] 1 gm PO AC-BID #60 tab 12/12/18 [Rx] Verapamil [Isoptin] 40 mg PO BID #60 tab 12/12/18 [Rx] Follow up Appointment(s)/Referral(s): Alejandra Izaguirre MD [STAFF PHYSICIAN] - 12/29/18 9:15 am (Saturday) Mark Anthony Mckeon DO [Primary Care Provider] - 12/30/18 3:00 pm (Saturday -previously scheduled appointment. No earlier appointments are available.) Patient Instructions/Handouts: A-fib (Atrial Fibrillation) (DC) Discharge Disposition: HOME SELF-CARE
--- NOTE | 2018-12-12 15:33 | US ---
EXAMINATION TYPE: US abdomen limited DATE OF EXAM: 12/12/2018 COMPARISON: CT lumbar spine 2014. CLINICAL HISTORY: epigastric pain. epigastric pain EXAM MEASUREMENTS: Liver Length: 15.0 cm Gallbladder Wall: 0.3 cm CBD: 0.3 cm Right Kidney: 10.0 x 4.9 x 5.0 cm Technical limitations due to large amount of overlying bowel content Pancreas: Obscured by bowel gas Liver: visualized portions appear wnl Gallbladder: no evidence of stones Evidence for sonographic Longoria's sign: no CBD: limited evaluation Right Kidney: parapelvic cyst Pancreas suboptimally seen on images saved initially. Visualized liver slightly heterogeneous without worrisome mass or ductal dilatation. Gallbladder is seen without shadowing gallstones. No hydronephr osis on limited images right kidney. Central small thin-walled parapelvic cyst mid to lower pole leve l correlates with CT coronal image 23. IMPRESSION: Suboptimal study without suspicious acute finding identified.
[2018-12-12 15:48] VITALS: BP 143/77; PULSE 56; TEMP 98.2
[2018-12-12] MEDS ORDERED: WARFARIN 5 MG TAB PO SCH (19:30)
== END 2018-12-12 16:17 | disposition home or self-care (01) | DRG 309 ==
LOC: EC 08:47 → 3SCARD 10:18
PROVIDERS: ADMIT Internal Medicine; ATTEND Internal Medicine
DX: I48.0 Paroxysmal atrial fibrillation (principal); I25.110 Atherosclerotic heart disease of native coronary artery with unstable angina pectoris; I49.3 Ventricular premature depolarization; J45.909 Unspecified asthma, uncomplicated; K21.9 Gastro-esophageal reflux disease without esophagitis; K29.70 Gastritis, unspecified, without bleeding; E03.9 Hypothyroidism, unspecified; E78.5 Hyperlipidemia, unspecified; G47.33 Obstructive sleep apnea (adult) (pediatric); G62.9 Polyneuropathy, unspecified; I10 Essential (primary) hypertension; Z79.01 Long term (current) use of anticoagulants; Z79.82 Long term (current) use of aspirin; Z79.890 Hormone replacement therapy; Z79.899 Other long term (current) drug therapy; Z80.0 Family history of malignant neoplasm of digestive organs; Z80.6 Family history of leukemia; Z80.8 Family history of malignant neoplasm of other organs or systems; Z82.1 Family history of blindness and visual loss; Z82.49 Family history of ischemic heart disease and other diseases of the circulatory system; Z83.3 Family history of diabetes mellitus; Z87.891 Personal history of nicotine dependence; Z98.61 Coronary angioplasty status; Z98.42 Cataract extraction status, left eye; Z98.41 Cataract extraction status, right eye; Z88.1 Allergy status to other antibiotic agents; Z88.5 Allergy status to narcotic agent
CPT/HCPCS: 36415; 71046; 76705; 80053; 80061; 83735; 83880; 84443; 84484; 85025; 85610; 85730; 93005; 96365; 96366; 99291

== ENCOUNTER 2019-03-04 14:57 | Emergency (ER) | payer MEDICARE, OTHER ==
[2019-03-04 15:02] VITALS: TEMP 97.4
[2019-03-04] MEDS ORDERED: SODIUM CHLORIDE 0.9% 1,000 ML IV ONE (15:20)
--- NOTE | 2019-03-04 15:41 | ED ---
Male Urogenital HPI - General Chief complaint: Urogenital Stated complaint: hematuria Time Seen by Provider: 03/04/19 15:09 Source: patient, RN notes reviewed, old records reviewed Mode of arrival: ambulatory Limitations: no limitations - History of Present Illness Initial comments: Patient is an 83-year-old male with painless hematuria times one day. He reports he had 1 minor episode of pain with urination prior to arrival. He is on Coumadin for A. fib. Patient reports that he's had no flank pain. He denies any fevers or chills or chest pain. - Related Data Home Medications Medication Instructions Recorded Confirmed Aspirin EC [Ecotrin Low Dose] 81 mg PO DAILY@192909/23/13 12/11/18 Ezetimibe/Simvastatin [Vytorin 1 tab PO Q48H 09/23/13 12/11/18 10-20 mg Tablet] Furosemide [Lasix] 20 mg PO Q48H 09/23/13 12/11/18 Levothyroxine Sodium [Synthroid] 50 mcg PO DAILY@0609/23/13 12/11/18 Montelukast [Singulair] 10 mg PO DAILY@192909/23/13 12/11/18 Nitroglycerin Sl Tabs [Nitrostat] 0.4 mg SUBLINGUAL Q5M PRN 09/23/13 12/11/18 Omeprazole [PriLOSEC] 20 mg PO BID@0700,192909/23/13 12/11/18 Warfarin [Coumadin] 5 mg PO SUMOWEFRSA@192909/23/13 12/11/18 Albuterol Sulfate [Proair Hfa] 1 - 2 puff INHALATION RT-Q6H PRN 05/05/14 12/11/18 Flecainide Acetate [Tambocor] 100 mg PO BID@0700,192911/15/15 12/11/18 Warfarin Sodium 7.5 mg PO TUTH@192911/15/15 12/11/18 Acetaminophen Tab [Tylenol] 500 mg PO Q6H PRN 12/11/18 12/11/18 Calcium Carbonate/Vitamin D3 1 tab PO BID@0700,192912/11/18 12/11/18 [Calcium 600-Vit D3 400 Tablet] Gabapentin [Neurontin] 300 mg PO HS 12/11/18 12/11/18 Previous Rx's Medication Instructions Recorded Sucralfate [Carafate] 1 gm PO AC-BID #60 tab 12/12/18 Verapamil [Isoptin] 40 mg PO BID #60 tab 12/12/18 Ciprofloxacin HCl [Cipro] 500 mg PO Q12HR #20 tab 03/04/19 Allergies Allergy/AdvReac Type Severity Reaction Status Date / Time clarithromycin [From Biaxin] Allergy Unknown Rash/Hives Verified 03/04/19 15:02 indomethacin [From Indocin] AdvReac Severe states Verified 03/04/19 15:02 "severe asthma attack indomethacin sodium AdvReac Severe states Verified 03/04/19 15:02 [From Indocin] "severe asthma attack" morphine AdvReac Unknown Hallucinati Verified 03/04/19 15:02 ons spironolactone AdvReac Unknown DEVELOPED Verified 03/04/19 15:02 LUMP IN BREAST AND ENLARGEMENT PERFUME AdvReac Dyspnea Uncoded 03/04/19 15:02 Review of Systems ROS Statement: Those systems with pertinent positive or pertinent negative responses have been documented in the HPI. ROS Other: All systems not noted in ROS Statement are negative. Past Medical History Past Medical History: Atrial Fibrillation, Asthma, Coronary Artery Disease (CAD), Chest Pain / Angina, GERD/Reflux, Hyperlipidemia, Osteoarthritis (OA), Sleep Apnea/CPAP/BIPAP, Thyroid Disorder Additional Past Medical History / Comment(s): Afib RVR, hiatal hernia, narrow esophagus, dysphagia with certain foods, arthritis in multiple joints, NATE without device, hypothyroid, bilateral tinnitis, anemia, bronchitis, seasonal a llergies, sinus problems at times. 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 Past Psychological History: No Psychological Hx Reported Smoking Status: Former smoker Past Alcohol Use History: None Reported Past Drug Use History: None Reported - Past Family History Father History Unknown: Yes (Father secondary to bowel obstruction at age 69) Additional Family Medical History / Comment(s): Father of a bowel obstruction at the age of 69yrs. Mother History Unknown: Yes (Mother from CAD CHF) Family Medical History: Congestive Heart Failure (CHF), Coronary Artery Disease (CAD), Diabetes Mellitus (Mother at age 75 from CAD, diabetes, blindness.) Brother(s) History Unknown: Yes Family Medical History: Coronary Artery Disease (CAD) (He shouldn't had 5 brothers to still alive one of them with CAD and multiple stents placement in the other one CAD and he had 3 brothers passed one from throat cancer 1 from leukemia ended third one not sure the cause of .) Sister(s) History Unknown: Yes Family Medical History: Thyroid Disorder (Patient had 5 sisters 3 alive one with hypothyroidism bradycardia and GERD 1 is 93-year-old and the other one and sure of any health issues patient had a sister who from stomach cancer and the fifth 1 of unknown cause.) Daughter(s) History Unknown: Yes Family Medical History: Musculoskeletal Disorder (Patient has 2 daughters one of them is all right the other one with fibromyalgia and migraine headaches.) Son(s) History Unknown: Yes Family Medical History: Osteoarthritis (OA) (Patient has 2 sons one of them is a right the other one had a work accident ended up with osteoarthritis) General Exam - General Exam Comments Initial Comments: Is a 83-year-old male. Alert and oriented 3. No distress. Limitations: no limitations General appearance: alert, in no apparent distress Head exam: Present: atraumatic, normocephalic, normal inspection Eye exam: Present: normal appearance, PERRL, EOMI. Absent: scleral icterus, conjunctival injection, periorbital swelling ENT exam: Present: normal exam, mucous membranes moist Neck exam: Present: normal inspection. Absent: tenderness, meningismus, lymp hadenopathy Respiratory exam: Present: normal lung sounds bilaterally. Absent: respiratory distress, wheezes, rales, rhonchi, stridor Cardiovascular Exam: Present: regular rate, normal rhythm, normal heart sounds. Absent: systolic murmur, diastolic murmur, rubs, gallop, clicks GI/Abdominal exam: Present: soft, normal bowel sounds. Absent: distended, tenderness, guarding, rebound, rigid Extremities exam: Present: normal inspection, full ROM, normal capillary refill. Absent: tenderness, pedal edema, joint swelling, calf tenderness Back exam: Present: normal inspection Neurological exam: Present: alert, oriented X3, CN II-XII intact Psychiatric exam: Present: normal affect, normal mood Skin exam: Present: warm, dry, intact, normal color. Absent: rash Course Vital Signs 03/04/19 15:00 Temperature 97.4 F L Pulse Rate 75 Respiratory 18 Rate Blood Pressure 130/80 O2 Sat by Pulse 99 Oximetry Medical Decision Making - Medical Decision Making 83-year-old male presents today for concern for hematuria times one day. On Coumadin. Lab was reviewed notably unremarkable. Coumadin levels 2.9. Patient's urinalysis did show some red blood cells, and some whites were noted. Urine culture be completed. Patient is given 2 g of Rocephin. Discussed that this seemed to be relatively painless hematuria further work was initiated including a CT of abdomen and pelvis. This shows no evidence of renal lesions. No acute source for painless hematuria. I discussed this time to treat for cystitis and Patient advised to hold Coumadin for 2 days. I discussed return parameters and following up with primary care doctor. - Lab Data Result diagrams: 03/04/19 15:26 03/04/19 15:26 Lab Results 03/04/19 03/04/19 03/04/19 Range/Units 15: 15: 15:26 WBC 3.8 (3.8-10.6) k/uL RBC 3.60 L (4.30-5.90) m/uL Hgb 12.7 L (13.0-17.5) gm/dL Hct 35.7 L (39.0-53.0) % MCV 99.2 (80.0-100.0) fL MCH 35.3 H (25.0-35.0) pg MCHC 35.6 (31.0-37.0) g/dL RDW 14.9 (11.5-15.5) % Plt Count 125 L (150-450) k/uL Neutrophils % 55 % Lymphocytes % 34 % Monocytes % 7 % Eosinophils % 1 % Basophils % 0 % Neutrophils # 2.1 (1.3-7.7) k/uL Lymphocytes # 1.3 (1.0-4.8) k/uL Monocytes # 0.3 (0-1.0) k/uL Eosinophils # 0.1 (0-0.7) k/uL Basophils # 0.0 (0-0.2) k/uL PT (9.0-12.0) sec INR (<1.2) APTT (22.0-30.0) sec Sodium 140 (137-145) mmol/L Potassium 3.8 (3.5-5.1) mmol/L Chloride 109 H (98-107) mmol/L Carbon Dioxide 24 (22-30) mmol/L Anion Gap 7 mmol/L BUN 16 (9-20) mg/dL Creatinine 0.66 (0.66-1.25) mg/dL Est GFR (CKD-EPI)AfAm >90 (>60 ml/min/1.73 sqM) Est GFR (CKD-EPI)NonAf >90 (>60 ml/min/1.73 sqM) Glucose 128 H (74-99) mg/dL Calcium 8.8 (8.4-10.2) mg/dL Total Bilirubin 0.6 (0.2-1.3) mg/dL AST 27 (17-59) U/L ALT 12 (4-49) U/L Alkaline Phosphatase 75 (38-126) U/L Total Protein 6.5 (6.3-8.2) g/dL Albumin 3.7 (3.5-5.0) g/dL Urine Color Dark Red Urine Appearance Cloudy (Clear) Urine pH 5.5 (5.0-8.0) Ur Specific [place] >1.050 H (1.001-1.035) Urine Protein 2+ H (Negative) Urine Glucose (UA) Negative (Negative) Urine Ketones Trace H (Negative) Urine Blood Large H (Negative) Urine Nitrite Negative (Negative) Urine Bilirubin Negative (Negative) Urine Urobilinogen <2.0 (<2.0) mg/dL Ur Leukocyte Esterase Small H (Negative) Urine RBC >182 H (0-5) /hpf Urine WBC 36 H (0-5) /hpf Urine WBC Clumps Many H (None) /hpf Ur Squamous Epith Cells 7 H (0-4) /hpf Urine Bacteria Few H (None) /hpf Urine Mucus Rare H (None) /hpf Urine Yeast (Budding) Many H (None) /hpf 03/04/19 Range/Units 15:26 WBC (3.8-10.6) k/uL RBC (4.30-5.90) m/uL Hgb (13.0-17.5) gm/dL Hct (39.0-53.0) % MCV (80.0-100.0) fL MCH (25.0-35.0) pg MCHC (31.0-37.0) g/dL RDW (11.5-15.5) % Plt Count (150-450) k/uL Neutrophils % % Lymphocytes % % Monocytes % % Eosinophils % % Basophils % % Neutrophils # (1.3-7.7) k/uL Lymphocytes # (1.0-4.8) k/uL Monocytes # (0-1.0) k/uL Eosinophils # (0-0.7) k/uL Basophils # (0-0.2) k/uL PT 28.1 H (9.0-12.0) sec INR 2.9 H (<1.2) APTT 33.2 H (22.0-30.0) sec Sodium (137-145) mmol/L Potassium (3.5-5.1) mmol/L Chloride (98-107) mmol/L Carbon Dioxide (22-30) mmol/L Anion Gap mmol/L BUN (9-20) mg/dL Creatinine (0.66-1.25) mg/dL Est GFR (CKD-EPI)AfAm (>60 ml/min/1.73 sqM) Est GFR (CKD-EPI)NonAf (>60 ml/min/1.73 sqM) Glucose (74-99) mg/dL Calcium (8.4-10.2) mg/dL Total Bilirubin (0.2-1.3) mg/dL AST (17-59) U/L ALT (4-49) U/L Alkaline Phosphatase (38-126) U/L Total Protein (6.3-8.2) g/dL Albumin (3.5-5.0) g/dL Urine Color Urine Appearance (Clear) Urine pH (5.0-8.0) Ur Specific Cross[place] (1.001-1.035) Urine Protein (Negative) Urine Glucose (UA) (Negative) Urine Ketones (Negative) Urine Blood (Negative) Urine Nitrite (Negative) Urine Bilirubin (Negative) Urine Urobilinogen (<2.0) mg/dL Ur Leukocyte Esterase (Negative) Urine RBC (0-5) /hpf Urine WBC (0-5) /hpf Urine WBC Clumps (None) /hpf Ur Squamous Epith Cells (0-4) /hpf Urine Bacteria (None) /hpf Urine Mucus (None) /hpf Urine Yeast (Budding) (None) /hpf - Radiology Data Radiology results: report reviewed Scarring and subsegmental atelectasis at the lung bases is new compared old exam. No acute abnormality within the abdomen or pelvis. Nonobstructing left renal calculus. Do not see definite cause or hematuria. Spondylitic changes and lumbar spine. L3 compression fractures unchanged. Disposition Clinical Impression: Cystitis, Hematuria Disposition: HOME SELF-CARE Instructions (If sedation given, give patient instructions): Urinary Tract Infection in Men (ED) Additional Instructions: Patient advised to hold Coumadin for 2 days. Take antibiotic as prescribed. Follow-up with primary care doctor and urology. Prescriptions: Ciprofloxacin HCl [Cipro] 500 mg PO Q12HR #20 tab Is patient prescribed a controlled substance at d/c from ED?: No Referrals: Mark Anthony Mckeon DO [Primary Care Provider] - 1-2 days Joshua Rodríguez MD [STAFF PHYSICIAN] - 1-2 days Time of Disposition: 17:49
[2019-03-04 15:45] LABS: Basophils % (A) 0 %; Eosinophils # (A) 0.1 k/uL (0-0.7); Eosinophils % (A) 1 %; HCT 35.7 % (39.0-53.0); HGB 12.7 gm/dL (13.0-17.5); Lymphocytes # (A) 1.3 k/uL (1.0-4.8); Lymphocytes % (A) 34 %; MCH 35.3 pg (25.0-35.0); MCHC 35.6 g/dL (31.0-37.0); MCV 99.2 fL (80.0-100.0); Mean Platelet Volume 7.8; Monocytes # (A) 0.3 k/uL (0-1.0); Monocytes % (A) 7 %; Neutrophils # (A) 2.1 k/uL (1.3-7.7); Neutrophils % (A) 55 %; Platelet Count 125 k/uL (150-450); RDW 14.9 % (11.5-15.5); WBC 3.8 k/uL (3.8-10.6)
[2019-03-04 15:46] LABS: Appearance,Urine Cloudy (Clear); Bacteria,Urine Few /hpf; Bilirubin,Urine Negative (Negative); Blood,Urine Large (Negative); Budding Yeast,Urine Many /hpf; Color,Urine Dark Red; Glucose,Urine (UA) Negative (Negative); Ketones,Urine Trace (Negative); Leukocyte Esterase,Urine Small (Negative); Mucus,Urine Rare /hpf; Nitrite,Urine Negative (Negative); PH, Urine 5.5 (5.0-8.0); Protein,Urine 2+ (Negative); RBC,Urine >182 /hpf (0-5); Squamous Epithelial Cell,Urine 7 /hpf (0-4); Urobilinogen,Urine <2.0 mg/dL (<2.0); WBC,Urine 36 /hpf (0-5)
[2019-03-04 15:48] LABS: Specific Gravity,Urine >1.050 (1.001-1.035)
[2019-03-04 15:52] LABS: INR 2.9 (<1.2); Partial Thromboplastin Time 33.2 sec (22.0-30.0); Prothrombin Time 28.1 sec (9.0-12.0)
[2019-03-04 15:59] LABS: ALT 12 U/L (4-49); AST 27 U/L (17-59); African American GFR (CKD) >90 (>60 ml/min/1.73 sqM); Albumin 3.7 g/dL (3.5-5.0); Alkaline Phosphatase 75 U/L (38-126); Anion Gap 7 mmol/L; Blood Urea Nitrogen 16 mg/dL (9-20); Calcium 8.8 mg/dL (8.4-10.2); Carbon Dioxide 24 mmol/L (22-30); Chloride 109 mmol/L (98-107); Glucose 128 mg/dL (74-99); Non-African American GFR(CKD) >90 (>60 ml/min/1.73 sqM); Potassium 3.8 mmol/L (3.5-5.1); Sodium 140 mmol/L (137-145); Total Bilirubin 0.6 mg/dL (0.2-1.3); Total Protein 6.5 g/dL (6.3-8.2)
--- NOTE | 2019-03-04 17:23 | CT ---
EXAMINATION TYPE: CT abdomen pelvis w con DATE OF EXAM: 03/04/2019 COMPARISON: 11/14/2011 HISTORY: Painless hematuria. CT DLP: 804.1 mGycm Automated exposure control for dose reduction was used. CONTRAST: Performed with IV Contrast, patient injected with 100 mL of Isovue 300. Images obtained from the diaphragm to the floor the pelvis with intravenous contrast. There is some mild scarring and atelectasis at the lung bases. Heart size is normal. There is no aileen cardial Liver and spleen appear intact. Bile ducts are not dilated. Stomach is intact. There is no evidence o f pancreatic mass. Gallbladder appears normal. There is no adrenal mass. Kidneys show satisfactory contrast opacification. There is 3 mm calcificati on medial left kidney. There is no hydronephrosis. Ureters are not dilated. There is right renal para pelvic cyst. There is no retroperitoneal adenopathy. Abdominal aorta is atheromatous. Bladder distend s smoothly. There is no inguinal hernia. There is no free fluid in the pelvis. There is no mesenteric edema. There is no ascites or free air. There is no sign of a bowel obstructio n. There is multilevel posterior fusion surgery in the lumbar spine. There is disc space narrowing throu ghout the lumbar spine. There is 20% loss of height of L3 vertebral body. Fracture appears old. The b cirilo pelvis appears intact. Hip joints are intact. IMPRESSION: Scarring and subsegmental atelectasis at the lung bases is new compared to old exam. No acute abnorma lity within the abdomen pelvis. Nonobstructing left renal calculus. I do not see a definite cause for hematuria. Spondylotic changes in the lumbar spine. L3 mild compression fracture unchanged.
[2019-03-04] MEDS ORDERED: cefTRIAXone IN SWFI 1,000 MG/10 ML SYRINGE IVP STA (17:27)
[2019-03-04 18:05] VITALS: BP 147/76; PULSE 76; RESP 16
== END 2019-03-04 18:03 | disposition home or self-care (01) ==
LOC: EC 14:57
DX: N30.91 Cystitis, unspecified with hematuria (principal); I48.91 Unspecified atrial fibrillation; I25.10 Atherosclerotic heart disease of native coronary artery without angina pectoris; G47.33 Obstructive sleep apnea (adult) (pediatric); E03.9 Hypothyroidism, unspecified; J45.909 Unspecified asthma, uncomplicated; Z79.82 Long term (current) use of aspirin; Z79.890 Hormone replacement therapy; Z79.01 Long term (current) use of anticoagulants; Z79.899 Other long term (current) drug therapy; Z88.1 Allergy status to other antibiotic agents; Z88.8 Allergy status to other drugs, medicaments and biological substances; Z88.5 Allergy status to narcotic agent; Z91.048 Other nonmedicinal substance allergy status; Z87.891 Personal history of nicotine dependence
CPT/HCPCS: 36415; 80053; 85025; 85610; 85730; 81001; 87086; 74177; 99284; 96374; 96361; J0696; Q9967

== ENCOUNTER 2019-03-08 03:08 | Emergency (ER) | payer MEDICARE, OTHER ==
[2019-03-08 03:17] VITALS: TEMP 97.3
[2019-03-08] MEDS ORDERED: SODIUM CHLORIDE 0.9% 500 ML 500 ML IV STA (03:57)
[2019-03-08] MEDS ORDERED: SODIUM CHLORIDE 0.9% 1,000 ML IV STA ×3 (03:57→04:43)
[2019-03-08] MEDS ORDERED: HYDROmorphone 1 MG/ML 1 ML SYRINGE IVP STA ×2 (03:57→04:43)
--- NOTE | 2019-03-08 03:58 | ED ---
Abdominal Pain HPI - General Chief Complaint: Abdominal Pain Stated Complaint: lower abdominal pain Time Seen by Provider: 03/08/19 03:18 Source: patient, RN notes reviewed, old records reviewed Mode of arrival: wheelchair Limitations: no limitations - History of Present Illness Initial Comments: This is an 83-year-old male here for evaluation presents today for evaluation of not feeling well. Nausea vomiting and abdominal pain. Bilateral flank pain which is severe think she may have a urinary tract infection as of recent is still having significant pain. No injuries or trauma noted. No recent travel or sick contacts denies fevers able to urinate without difficulty, no diarrhea MD Complaint: abdominal pain -: days(s) Location: L flank, R flank Radiation: L flank Migration to: no migration Severity: moderate Severity scale (1-10): 7 Quality: aching Consistency: constant Improves With: nothing Worsens With: nothing Associated Symptoms: nausea - Related Data Home Medications Medication Instructions Recorded Confirmed Aspirin EC [Ecotrin Low Dose] 81 mg PO DAILY@192909/23/13 12/11/18 Ezetimibe/Simvastatin [Vytorin 1 tab PO Q48H 09/23/13 12/11/18 10-20 mg Tablet] Furosemide [Lasix] 20 mg PO Q48H 09/23/13 12/11/18 Levothyroxine Sodium [Synthroid] 50 mcg PO DAILY@0609/23/13 12/11/18 Montelukast [Singulair] 10 mg PO DAILY@192909/23/13 12/11/18 Nitroglycerin Sl Tabs [Nitrostat] 0.4 mg SUBLINGUAL Q5M PRN 09/23/13 12/11/18 Omeprazole [PriLOSEC] 20 mg PO BID@0700,192909/23/13 12/11/18 Warfarin [Coumadin] 5 mg PO SUMOWEFRSA@192909/23/13 12/11/18 Albuterol Sulfate [Proair Hfa] 1 - 2 puff INHALATION RT-Q6H PRN 05/05/14 12/11/18 Flecainide Acetate [Tambocor] 100 mg PO BID@0700,192911/15/15 12/11/18 Warfarin Sodium 7.5 mg PO TUTH@192911/15/15 12/11/18 Acetaminophen Tab [Tylenol] 500 mg PO Q6H PRN 12/11/18 12/11/18 Calcium Carbonate/Vitamin D3 1 tab PO BID@0700,1930 12/11/18 12/11/18 [Calcium 600-Vit D3 400 Tablet] Gabapentin [Neurontin] 300 mg PO HS 12/11/18 12/11/18 Previous Rx's Medication Instructions Recorded Sucralfate [Carafate] 1 gm PO AC-BID #60 tab 12/12/18 Verapamil [Isoptin] 40 mg PO BID #60 tab 12/12/18 Ciprofloxacin HCl [Cipro] 500 mg PO Q12HR #20 tab 03/04/19 Allergies Allergy/AdvReac Type Severity Reaction Status Date / Time clarithromycin [From Biaxin] Allergy Unknown Rash/Hives Verified 03/08/19 03:18 indomethacin [From Indocin] AdvReac Severe states Verified 03/08/19 03:18 "severe asthma attack indomethacin sodium AdvReac Severe states Verified 03/08/19 03:18 [From Indocin] "severe asthma attack" morphine AdvReac Unknown Hallucinati Verified 03/08/19 03:18 ons PERFUME AdvReac Dyspnea Uncoded 03/08/19 03:18 Review of Systems ROS Statement: Those systems with pertinent positive or pertinent negative responses have been documented in the HPI. ROS Other: All systems not noted in ROS Statement are negative. Past Medical History Past Medical History: Atrial Fibrillation, Asthma, Coronary Artery Disease (CAD), Chest Pain / Angina, GERD/Reflux, Hyperlipidemia, Osteoarthritis (OA), Sleep Apnea/CPAP/BIPAP, Thyroid Disorder Additional Past Medical History / Comment(s): Afib RVR, hiatal hernia, narrow esophagus, dysphagia with certain foods, arthritis in multiple joints, NATE without device, hypothyroid, bilateral tinnitis, anemia, bronchitis, seasonal allergies, sinus problems at times. 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 Past Psychological History: No Psychological Hx Reported Smoking Status: Former smoker Past Alcohol Use History: None Reported Past Drug Use History: None Reported - Past Family History Father History Unknown: Yes (Father secondary to bowel obstruction at age 69) Additional Family Medical History / Comment(s): Father of a bowel obstruction at the age of 69yrs. Mother History Unknown: Yes (Mother from CAD CHF) Family Medical History: Congestive Heart Failure (CHF), Coronary Artery Disease (CAD), Diabetes Mellitus (Mother at age 75 from CAD, diabetes, blindness.) Brother(s) History Unknown: Yes Family Medical History: Coronary Artery Disease (CAD) (He shouldn't had 5 brothers to still alive one of them with CAD and multiple stents placement in the other one CAD and he had 3 brothers passed one from throat cancer 1 from leukemia ended third one not sure the cause of .) Sister(s) History Unknown: Yes Family Medical History: Thyroid Disorder (Patient had 5 sisters 3 alive one with hypothyroidism bradycardia and GERD 1 is 93-year-old and the other one and sure of any health issues patient had a sister who from stomach cancer and the fifth 1 of unknown cause.) Daughter(s) History Unknown: Yes Family Medical History: Musculoskeletal Disorder (Patient has 2 daughters one of them is all right the other one with fibromyalgia and migraine headaches.) Son(s) History Unknown: Yes Family Medical History: Osteoarthritis (OA) (Patient has 2 sons one of them is a right the other one had a work accident ended up with osteoarthritis) General Exam Limitations: no limitations General appearance: alert, in no apparent distress Head exam: Present: atraumatic, normocephalic, normal inspection Eye exam: Present: normal appearance, PERRL, EOMI. Absent: scleral icterus, conjunctival injection, periorbital swelling ENT exam: Present: normal exam, mucous membranes moist Neck exam: Present: normal inspection. Absent: tenderness, meningismus, lymphadenopathy Respiratory exam: Present: normal lung sounds bilaterally. Absent: respiratory distress, wheezes, rales, rhonchi, stridor Cardiovascular Exam: Present: regular rate, normal rhythm, normal heart sounds. Absent: systolic murmur, diastolic murmur, rubs, gallop, clicks GI/Abdominal exam: Present: soft, normal bowel sounds. Absent: distended, tenderness, guarding, rebound, rigid Extremities exam: Present: normal inspection, full ROM, normal capillary refill. Absent: tenderness, pedal edema, joint swelling, calf tenderness Back exam: Present: normal inspection Neurological exam: Present: alert, oriented X3, CN II-XII intact Psychiatric exam: Present: normal affect, normal mood Skin exam: Present: warm, dry, intact, normal color. Absent: rash Course Vital Signs 03/08/19 03/08/19 03:13 06:34 Temperature 97.3 F L Pulse Rate 67 72 Respiratory 17 18 Rate Blood Pressure 156/88 155/94 O2 Sat by Pulse 99 96 Oximetry Medical Decision Making - Medical Decision Making 83-year-old male DF reversible abdominal pain. CT abdomen and pelvis as well as labwork is negative for acute disease. Patient has pain control feeling well ca n be discharged home - Lab Data Result diagrams: 03/08/19 04:27 03/08/19 04:27 Lab Results 03/08/19 03/08/19 03/08/19 Range/Units 04:27 04:27 04:27 WBC 5.0 (3.8-10.6) k/uL RBC 3.60 L (4.30-5.90) m/uL Hgb 12.1 L (13.0-17.5) gm/dL Hct 35.4 L (39.0-53.0) % MCV 98.4 (80.0-100.0) fL MCH 33.6 (25.0-35.0) pg MCHC 34.1 (31.0-37.0) g/dL RDW 15.0 (11.5-15.5) % Plt Count 146 L (150-450) k/uL Neutrophils % 69 % Lymphocytes % 21 % Monocytes % 6 % Eosinophils % 1 % Basophils % 0 % Neutrophils # 3.5 (1.3-7.7) k/uL Lymphocytes # 1.1 (1.0-4.8) k/uL Monocytes # 0.3 (0-1.0) k/uL Eosinophils # 0.1 (0-0.7) k/uL Basophils # 0.0 (0-0.2) k/uL PT 11.7 (9.0-12.0) sec INR 1.2 H (<1.2) APTT 23.5 (22.0-30.0) sec Sodium 139 (137-145) mmol/L Potassium 4.0 (3.5-5.1) mmol/L Chloride 110 H (98-107) mmol/L Carbon Dioxide 22 (22-30) mmol/L Anion Gap 7 mmol/L BUN 16 (9-20) mg/dL Creatinine 0.81 (0.66-1.25) mg/dL Est GFR (CKD-EPI)AfAm >90 (>60 ml/min/1.73 sqM) Est GFR (CKD-EPI)NonAf 83 (>60 ml/min/1.73 sqM) Glucose 103 H (74-99) mg/dL Calcium 9.1 (8.4-10.2) mg/dL Total Bilirubin 0.9 (0.2-1.3) mg/dL AST 24 (17-59) U/L ALT 12 (4-49) U/L Alkaline Phosphatase 66 (38-126) U/L Total Protein 6.4 (6.3-8.2) g/dL Albumin 3.5 (3.5-5.0) g/dL Urine Color Urine Appearance (Clear) Urine pH (5.0-8.0) Ur Specific [place] (1.001-1.035) Urine Protein (Negative) Urine Glucose (UA) (Negative) Urine Ketones (Negative) Urine Blood (Negative) Urine Nitrite (Negative) Urine Bilirubin (Negative) Urine Urobilinogen (<2.0) mg/dL Ur Leukocyte Esterase (Negative) Urine RBC (0-5) /hpf Urine WBC (0-5) /hpf Urine Bacteria (None) /hpf Urine Mucus (None) /hpf 03/08/19 Range/Units 04:27 WBC (3.8-10.6) k/uL RBC (4.30-5.90) m/uL Hgb (13.0-17.5) gm/dL Hct (39.0-53.0) % MCV (80.0-100.0) fL MCH (25.0-35.0) pg MCHC (31.0-37.0) g/dL RDW (11.5-15.5) % Plt Count (150-450) k/uL Neutrophils % % Lymphocytes % % Monocytes % % Eosinophils % % Basophils % % Neutrophils # (1.3-7.7) k/uL Lymphocytes # (1.0-4.8) k/uL Monocytes # (0-1.0) k/uL Eosinophils # (0-0.7) k/uL Basophils # (0-0.2) k/uL PT (9.0-12.0) sec INR (<1.2) APTT (22.0-30.0) sec Sodium (137-145) mmol/L Potassium (3.5-5.1) mmol/L Chloride (98-107) mmol/L Carbon Dioxide (22-30) mmol/L Anion Gap mmol/L BUN (9-20) mg/dL Creatinine (0.66-1.25) mg/dL Est GFR (CKD-EPI)AfAm (>60 ml/min/1.73 sqM) Est GFR (CKD-EPI)NonAf (>60 ml/min/1.73 sqM) Glucose (74-99) mg/dL Calcium (8.4-10.2) mg/dL Total Bilirubin (0.2-1.3) mg/dL AST (17-59) U/L ALT (4-49) U/L Alkaline Phosphatase (38-126) U/L Total Protein (6.3-8.2) g/dL Albumin (3.5-5.0) g/dL Urine Color Yellow Urine Appearance Clear (Clear) Urine pH 7.0 (5.0-8.0) Ur Specific [place] 1.007 (1.001-1.035) Urine Protein Trace H (Negative) Urine Glucose (UA) Negative (Negative) Urine Ketones Negative (Negative) Urine Blood Large H (Negative) Urine Nitrite Negative (Negative) Urine Bilirubin Negative (Negative) Urine Urobilinogen <2.0 (<2.0) mg/dL Ur Leukocyte Esterase Negative (Negative) Urine RBC 54 H (0-5) /hpf Urine WBC 2 (0-5) /hpf Urine Bacteria Occasional H (None) /hpf Urine Mucus Rare H (None) /hpf - Radiology Data Radiology results: report reviewed (CT of the abdomen and pelvis is negative for acute disease), image reviewed Disposition Clinical Impression: Bilateral flank pain, Hematuria Disposition: HOME SELF-CARE Condition: Good Instructions (If sedation given, give patient instructions): Flank Pain (ED) Is patient prescribed a controlled substance at d/c from ED?: No Referrals: Mark Anthony Mckeon DO [Primary Care Provider] - 1-2 days
[2019-03-08 04:36] LABS: Basophils % (A) 0 %; Eosinophils # (A) 0.1 k/uL (0-0.7); Eosinophils % (A) 1 %; HCT 35.4 % (39.0-53.0); HGB 12.1 gm/dL (13.0-17.5); Lymphocytes # (A) 1.1 k/uL (1.0-4.8); Lymphocytes % (A) 21 %; MCH 33.6 pg (25.0-35.0); MCHC 34.1 g/dL (31.0-37.0); MCV 98.4 fL (80.0-100.0); Mean Platelet Volume 7.7; Monocytes # (A) 0.3 k/uL (0-1.0); Monocytes % (A) 6 %; Neutrophils # (A) 3.5 k/uL (1.3-7.7); Neutrophils % (A) 69 %; Platelet Count 146 k/uL (150-450)
[2019-03-08 04:44] LABS: Appearance,Urine Clear (Clear); Bacteria,Urine Occasional /hpf; Bilirubin,Urine Negative (Negative); Blood,Urine Large (Negative); Color,Urine Yellow; Glucose,Urine (UA) Negative (Negative); Ketones,Urine Negative (Negative); Leukocyte Esterase,Urine Negative (Negative); Mucus,Urine Rare /hpf; Nitrite,Urine Negative (Negative); Protein,Urine Trace (Negative); RBC,Urine 54 /hpf (0-5); Specific Gravity,Urine 1.007 (1.001-1.035); Urobilinogen,Urine <2.0 mg/dL (<2.0); WBC,Urine 2 /hpf (0-5)
[2019-03-08 04:47] LABS: ALT 12 U/L (4-49); AST 24 U/L (17-59); African American GFR (CKD) >90 (>60 ml/min/1.73 sqM); Albumin 3.5 g/dL (3.5-5.0); Alkaline Phosphatase 66 U/L (38-126); Anion Gap 7 mmol/L; Blood Urea Nitrogen 16 mg/dL (9-20); Calcium 9.1 mg/dL (8.4-10.2); Carbon Dioxide 22 mmol/L (22-30); Chloride 110 mmol/L (98-107); Glucose 103 mg/dL (74-99); Non-African American GFR(CKD) 83 (>60 ml/min/1.73 sqM); Sodium 139 mmol/L (137-145); Total Bilirubin 0.9 mg/dL (0.2-1.3); Total Protein 6.4 g/dL (6.3-8.2)
[2019-03-08 04:49] LABS: INR 1.2 (<1.2); Partial Thromboplastin Time 23.5 sec (22.0-30.0); Prothrombin Time 11.7 sec (9.0-12.0)
--- NOTE | 2019-03-08 05:35 | CT ---
EXAMINATION TYPE: CT abdomen pelvis wo con DATE OF EXAM: 03/08/2019 COMPARISON: 03/04/2019 HISTORY: Flank pain. CT DLP: 638.8 mGycm Automated exposure control for dose reduction was used. Multiple axial sections were obtained from the diaphragm to the floor the pelvis with no contrast. There is some mild fibrotic changes and subsegmental atelectasis at the lung bases. There is no pleur al effusion. Heart size is normal. There is no pericardial effusion. Stomach is intact. Liver shows n o focal defect. Gallbladder appears normal. There is no pancreatic mass. Spleen appears normal. There is no adrenal mass. There is Garcia catheter in the urinary bladder. There is mild fullness of t he left upper collecting system but no obstructing calculus seen. This appears unchanged. There is sm all renal parapelvic cysts. There is no evidence of a solid renal mass. There is no retroperitoneal a denopathy. Abdominal aorta is atheromatous. Prostate is enlarged. There is no inguinal hernia. There is no free fluid in the pelvis. There is no evidence of a bowel obstruction. There is no mesenteric edema. There is no ascites or tracy e air. There is mild compression deformity of the L3 vertebral body with 20% loss of height. There is multilevel posterior fusion surgery at L2-L3 and L4. There is narrowing of the disc spaces. Bony pel vis is intact. Appendix is not seen. No sign of thickened appendix. IMPRESSION: There are small renal parapelvic cysts unchanged. Small left renal calcifications unchanged. Some of these could be vascular. No evidence of a ureteral calculus.. I do not see a definite cause for flank pain. L3 compression fracture unchanged.
[2019-03-08] MEDS ORDERED: ACET/COD 300 MG/30 MG STARTER PACK 6 TAB BTL PO STA (06:31)
[2019-03-08 06:35] VITALS: BP 155/94; PULSE 72; RESP 18
== END 2019-03-08 06:34 | disposition home or self-care (01) ==
LOC: EC 03:08
DX: R10.31 Right lower quadrant pain (principal); R10.32 Left lower quadrant pain; R31.9 Hematuria, unspecified; R11.2 Nausea with vomiting, unspecified; I48.91 Unspecified atrial fibrillation; J45.909 Unspecified asthma, uncomplicated; I25.10 Atherosclerotic heart disease of native coronary artery without angina pectoris; K21.9 Gastro-esophageal reflux disease without esophagitis; E78.5 Hyperlipidemia, unspecified; E03.9 Hypothyroidism, unspecified; M19.90 Unspecified osteoarthritis, unspecified site; G47.33 Obstructive sleep apnea (adult) (pediatric); Z99.89 Dependence on other enabling machines and devices; Z95.818 Presence of other cardiac implants and grafts; Z95.1 Presence of aortocoronary bypass graft; Z96.698 Presence of other orthopedic joint implants; Z87.891 Personal history of nicotine dependence; Z79.82 Long term (current) use of aspirin; Z79.890 Hormone replacement therapy; Z79.01 Long term (current) use of anticoagulants; Z79.899 Other long term (current) drug therapy; Z88.1 Allergy status to other antibiotic agents; Z88.6 Allergy status to analgesic agent; Z88.5 Allergy status to narcotic agent; Z91.048 Other nonmedicinal substance allergy status; Z53.29 Procedure and treatment not carried out because of patient's decision for other reasons
CPT/HCPCS: 51798; 36415; 80053; 85025; 85610; 85730; 81001; 74176; 99285; 96365; 96375; 96361; J0696; J1170

== ENCOUNTER → 2019-04-02 | Outpatient (CLI) | payer MEDICARE, OTHER ==
--- NOTE | 2019-04-02 12:53 | XR ---
EXAMINATION TYPE: XR shoulder complete RT DATE OF EXAM: 04/02/2019 CLINICAL HISTORY: Right shoulder pain after fall TECHNIQUE: Three views of the right shoulder are obtained. COMPARISON: None. FINDINGS: There is no acute fracture/dislocation evident in the right shoulder. The acromioclavicul ar and glenohumeral joint spaces appear aligned. Mild acromioclavicular arthropathy is seen with smal l marginal osteophytes. The visualized ribs are intact and unremarkable. Questionable periosteal reac tion laterally on the external rotation view over the proximal humeral metaphysis and humeral head. IMPRESSION: There is no acute fracture or dislocation in the right shoulder. Questionable periosteal reaction along the proximal right humeral metaphysis and humeral head on a single view only. CT coul d assess the cortex further.
== END | disposition home or self-care (01) ==
LOC: RADXRMAIN 12:18
PROVIDERS: ATTEND Internal Medicine
DX: M25.511 Pain in right shoulder (principal)

== ENCOUNTER 2019-06-08 14:36 | Emergency (ER) | payer MEDICARE, OTHER ==
[2019-06-08 14:41] VITALS: TEMP 98
[2019-06-08] MEDS ORDERED: DIPH,PERTUS(ACELL)TETVAC-LF 0.5 ML VIAL IM ONE (15:16)
[2019-06-08] MEDS ORDERED: LIDOCAINE 1% INJ 10MG/ML (20 ML MDV) SQ ONE (15:16)
[2019-06-08] MEDS ORDERED: HYDROcodone/APAP 5-325MG 1 EACH TAB PO STA (15:39)
--- NOTE | 2019-06-08 15:41 | ED ---
Wound/Laceration HPI - General Source: patient Mode of arrival: ambulatory Limitations: no limitations <Rochelle Harper - Last Filed: 06/08/19 18:56> <Eliecer Hopson - Last Filed: 06/09/19 00:03> - General Chief Complaint: Wound/Laceration Stated Complaint: right finger lac Time Seen by Provider: 06/08/19 14:57 - History of Present Illness Initial Comments: Patient is an 84-year-old male presenting to the emergency Department with complaints of a laceration to his right thumb. Patient states he was working on a table saw cutting some wood when it slipped and cut the tip of his right thumb. There is nail involvement. Patient states he is on Coumadin. Bleeding is controlled at this time. He does not remember his last tetanus vaccine. Patient denies any other injuries and he has no other complaints. Upon arrival to the ER, vitals are stable. (Rochelle Harper) - Related Data Home Medications Medication Instructions Recorded Confirmed Aspirin EC [Ecotrin Low Dose] 81 mg PO DAILY@192909/23/13 12/11/18 Ezetimibe/Simvastatin [Vytorin 1 tab PO Q48H 09/23/13 12/11/18 10-20 mg Tablet] Furosemide [Lasix] 20 mg PO Q48H 09/23/13 12/11/18 Levothyroxine Sodium [Synthroid] 50 mcg PO DAILY@0609/23/13 12/11/18 Montelukast [Singulair] 10 mg PO DAILY@192909/23/13 12/11/18 Nitroglycerin Sl Tabs [Nitrostat] 0.4 mg SUBLINGUAL Q5M PRN 09/23/13 12/11/18 Omeprazole [PriLOSEC] 20 mg PO BID@0700,192909/23/13 12/11/18 Warfarin [Coumadin] 5 mg PO SUMOWEFRSA@192909/23/13 12/11/18 Albuterol Sulfate [Proair Hfa] 1 - 2 puff INHALATION RT-Q6H PRN 05/05/14 12/11/18 Flecainide Acetate [Tambocor] 100 mg PO BID@0700,192911/15/15 12/11/18 Warfarin Sodium 7.5 mg PO TUTH@1930 11/15/15 12/11/18 Acetaminophen Tab [Tylenol] 500 mg PO Q6H PRN 12/11/18 12/11/18 Calcium Carbonate/Vitamin D3 1 tab PO BID@0700,1930 12/11/18 12/11/18 [Calcium 600-Vit D3 400 Tablet] Gabapentin [Neurontin] 300 mg PO HS 12/11/18 12/11/18 Previous Rx's Medication Instructions Recorded Sucralfate [Carafate] 1 gm PO AC-BID #60 tab 12/12/18 Verapamil [Isoptin] 40 mg PO BID #60 tab 12/12/18 Ciprofloxacin HCl [Cipro] 500 mg PO Q12HR #20 tab 03/04/19 Cephalexin [Keflex] 500 mg PO Q6HR 3 Days #12 cap 06/08/19 Allergies Allergy/AdvReac Type Severity Reaction Status Date / Time clarithromycin [From Biaxin] Allergy Unknown Rash/Hives Verified 06/08/19 14:51 indomethacin [From Indocin] AdvReac Severe states Verified 06/08/19 14:51 "severe asthma attack indomethacin sodium AdvReac Severe states Verified 06/08/19 14:51 [From Indocin] "severe asthma attack" morphine AdvReac Unknown Hallucinati Verified 06/08/19 14:51 ons PERFUME AdvReac Dyspnea Uncoded 06/08/19 14:51 Review of Systems ROS Other: All systems not noted in ROS Statement are negative. <Rochelle Harper - Last Filed: 06/08/19 18:56> ROS Other: All systems not noted in ROS Statement are negative. <Eliecer Hopson - Last Filed: 06/09/19 00:03> ROS Statement: Those systems with pertinent positive or pertinent negative responses have been documented in the HPI. Past Medical History Past Medical History: Atrial Fibrillation, Asthma, Coronary Artery Disease (CAD), Chest Pain / Angina, GERD/Reflux, Hyperlipidemia, Osteoarthritis (OA), Sleep Apnea/CPAP/BIPAP, Thyroid Disorder Additional Past Medical History / Comment(s): Afib RVR, hiatal hernia, narrow esophagus, dysphagia with certain foods, arthritis in multiple joints, NATE without device, hypothyroid, bilateral tinnitis, anemia, bronchitis, seasonal allergies, sinus problems at times. 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 Past Psychological History: No Psychological Hx Reported Smoking Status: Former smoker Past Alcohol Use History: None Reported Past Drug Use History: None Reported - Past Family History Father History Unknown: Yes (Father secondary to bowel obstruction at age 69) Additional Family Medical History / Comment(s): Father of a bowel obstruction at the age of 69yrs. Mother History Unknown: Yes (Mother from CAD CHF) Family Medical History: Congestive Heart Failure (CHF), Coronary Artery Disease (CAD), Diabetes Mellitus (Mother at age 75 from CAD, diabetes, blindness.) Brother(s) History Unknown: Yes Family Medical History: Coronary Artery Disease (CAD) (He shouldn't had 5 brothers to still alive one of them with CAD and multiple stents placement in the other one CAD and he had 3 brothers passed one from throat cancer 1 from leukemia ended third one not sure the cause of .) Sister(s) History Unknown: Yes Family Medical History: Thyroid Disorder (Patient had 5 sisters 3 alive one with hypothyroidism bradycardia and GERD 1 is 93-year-old and the other one and sure of any health issues patient had a sister who from stomach cancer and the fifth 1 of unknown cause.) Daughter(s) History Unknown: Yes Family Medical History: Musculoskeletal Disorder (Patient has 2 daughters one of them is all right the other one with fibromyalgia and migraine headaches.) Son(s) History Unknown: Yes Family Medical History: Osteoarthritis (OA) (Patient has 2 sons one of them is a right the other one had a work accident ended up with osteoarthritis) <Rochelle Harper - Last Filed: 06/08/19 18:56> General Exam Limitations: no limitations <Rochelle Harper - Last Filed: 06/08/19 18:56> - General Exam Comments Initial Comments: GENERAL: Well-appearing, well-nourished and in no acute distress. HEAD: Atraumatic, normocephalic. EYES: Pupils equal round and reactive to light, extraocular movements intact, sclera anicteric, conjunctiva are normal. ENT: Moist mucous membranes. NECK: Normal range of motion, supple without lymphadenopathy or JVD. LUNGS: Breath sounds clear to auscultation bilaterally and equal. No wheezes rales or rhonchi. HEART: Regular rate and rhythm without murmurs, rubs or gallops. ABDOMEN: Soft, nontender, normoactive bowel sounds. No guarding, no rebound. No masses appreciated. : Deferred EXTREMITIES: Patient has full range of motion of his right fingers and hand. He is neurovascular intact. No clubbing or cyanosis. NEUROLOGICAL: Normal speech, normal gait. PSYCH: Normal mood, normal affect. SKIN: Warm, Dry, normal turgor, no rashes. Patient has a 1 cm laceration to the distal end of his right thumb. There is nail involvement. Bleeding is controlled with a bandage at this time. (Rochelle Harper) Course <Eliecer Hopson - Last Filed: 06/09/19 00:03> Vital Signs 06/08/19 06/08/19 14:39 17:22 Temperature 98.0 F Pulse Rate 86 74 Respiratory 18 16 Rate Blood Pressure 152/77 142/74 O2 Sat by Pulse 97 100 Oximetry - Reevaluation(s) Reevaluation #1: 06/09/19 00:03 PA supervision: I personally evaluate this case patient presented with compl aints of a thumb laceration the laceration was repaired the patient tolerated this well. Do agree with the assessment and plan (Eliecer Hopson) Procedures - Laceration Laceration #1 Consent Obtained: verbal consent Indication: laceration Site: hand (Right thumb, distal and, nail involvement.) Size (cm): 1 Description: linear Depth: simple, single layer Anesthetic Used: lidocaine 1% Anesthesia Technique: local infiltration Amount (mls): 3 Pre-repair: irrigated extensively Type of Sutures: nylon Size of Sutures: 5-0 Number of Sutures: 3 Technique: simple, interrupted Patient Tolerated Procedure: well <Rochelle Harper - Last Filed: 06/08/19 18:56> Medical Decision Making <Rochelle Harper - Last Filed: 06/08/19 18:56> - Medical Decision Making Patient is an 84-year-old male presenting with a right thumb laceration involving the nail. Patient's tetanus vaccine was updated today. X-rays reveal no acute bony abnormalities, no foreign bodies. Patient's wound was cleaned and closed with 3, 5-0 sutures. Patient tolerated procedure well. Patient will be given antibiotic. Sutures to be removed in 7-10 days. Patient is stable for discharge. Patient will follow-up with PCP. Return parameters were discussed with the patient and he verbalized understanding. Case discussed with Dr. Hopson. (Rochelle Harper) Disposition Is patient prescribed a controlled substance at d/c from ED?: No <Rochelle Harper - Last Filed: 06/08/19 18:56> <Eliecer Hopson - Last Filed: 06/09/19 00:03> Clinical Impression: Laceration of right thumb with damage to nail Disposition: HOME SELF-CARE Condition: Stable Instructions (If sedation given, give patient instructions): Care For Your Stitches (ED) Additional Instructions: Please return to the Emergency Department if symptoms worsen or any other concerns. Sutures need to be removed in 7-10 days. Take antibiotic as prescribed. Keep wound clean and dry. Follow-up with PCP as discussed. Prescriptions: Cephalexin [Keflex] 500 mg PO Q6HR 3 Days #12 cap Referrals: Mark Anthony Mckeon DO [Primary Care Provider] - 1-2 days
--- NOTE | 2019-06-08 16:05 | XR ---
EXAMINATION TYPE: XR hand limited RT DATE OF EXAM: 06/08/2019 COMPARISON: 08/20/2018 HISTORY: Laceration on thumb TECHNIQUE: 2 view right hand for visualization of the thumb FINDINGS: No acute osseous abnormality of the thumb is evident. No additional acute osseous abnormali ty is evident. Note is made of degenerative joint changes at the proximal distal interphalangeal join t spaces. No significant interval changes evident. No radiopaque foreign bodies are evident. IMPRESSION: 1. No acute osseous abnormality right thumb
[2019-06-08 17:23] VITALS: BP 142/74; PULSE 74; RESP 16
== END 2019-06-08 17:21 | disposition home or self-care (01) ==
LOC: EC 14:36
DX: S61.011A Laceration without foreign body of right thumb without damage to nail, initial encounter (principal); I48.91 Unspecified atrial fibrillation; J45.909 Unspecified asthma, uncomplicated; I25.119 Atherosclerotic heart disease of native coronary artery with unspecified angina pectoris; K21.9 Gastro-esophageal reflux disease without esophagitis; E78.5 Hyperlipidemia, unspecified; M19.90 Unspecified osteoarthritis, unspecified site; G47.33 Obstructive sleep apnea (adult) (pediatric); E03.9 Hypothyroidism, unspecified; I48.20 Chronic atrial fibrillation, unspecified; Z79.82 Long term (current) use of aspirin; Z79.890 Hormone replacement therapy; Z79.01 Long term (current) use of anticoagulants; Z79.899 Other long term (current) drug therapy; Z79.891 Long term (current) use of opiate analgesic; Z23 Encounter for immunization; Z88.1 Allergy status to other antibiotic agents; Z88.5 Allergy status to narcotic agent; Z91.048 Other nonmedicinal substance allergy status; Z79.51 Long term (current) use of inhaled steroids; Z95.5 Presence of coronary angioplasty implant and graft; W31.2XXA Contact with powered woodworking and forming machines, initial encounter; Y93.89 Activity, other specified
CPT/HCPCS: 99283; 90471; 12001; 73120; 90715; J2001

== ENCOUNTER → 2019-06-26 | Outpatient (CLI) | payer MEDICARE, OTHER ==
--- NOTE | 2019-06-26 10:53 | XR ---
EXAMINATION TYPE: XR elbow complete LT DATE OF EXAM: 06/26/2019 CLINICAL HISTORY: Fall injury with pain and bruising TECHNIQUE: Frontal, lateral and oblique images of the left elbow are obtained. COMPARISON: None FINDINGS: There is no acute fracture/dislocation evident in the left elbow. No abnormal fat pad sig ns are seen. Mild spurring ulnohumeral joint. Some curvilinear calcification lateral epicondyle dista l humerus could be along the extensor tendons raising concern for calcific tendinitis. The overlying soft tissue appears unremarkable. IMPRESSION: There is no acute fracture or dislocation in the left elbow.
--- NOTE | 2019-06-26 10:55 | XR ---
EXAMINATION TYPE: XR wrist complete LT DATE OF EXAM: 06/26/2019 CLINICAL HISTORY: Fall injury with pain and bruising. TECHNIQUE: Frontal, lateral, scaphoid and oblique images of the left wrist are obtained. COMPARISON: Bilateral wrist x-ray July 14, 2015. FINDINGS: There is no acute fracture/dislocation evident in the left wrist. Calcification of the fib rocartilage complex is present and progressed from prior. Consider underlying pseudogout. Increased n arrowing of the distal radial joint with scaphoid and lunate. Persistent mild/moderate narrowing and spurring base of first metacarpal fairly stable. Moderate narrowing distal scaphoid articulation wit h the trapezium progressed from prior. No new soft tissue swelling. IMPRESSION: There is no acute fracture or dislocation in the left wrist.
--- NOTE | 2019-06-26 10:56 | XR ---
EXAMINATION TYPE: XR shoulder complete LT DATE OF EXAM: 06/26/2019 CLINICAL HISTORY: Repeated falls with losing over multiple joints. Left shoulder pain. TECHNIQUE: Three views of the left shoulder are obtained. COMPARISON: None. FINDINGS: There is no acute fracture/dislocation evident in the left shoulder. The acromioclavicula r and glenohumeral joint spaces appear aligned with mild arthropathy of the left acromio clavicular j oint demonstrated as small marginal osteophytes. The visualized ribs are grossly unremarkable. IMPRESSION: There is no acute fracture or dislocation in the left shoulder.
--- NOTE | 2019-06-26 10:59 | XR ---
EXAMINATION TYPE: XR Hip Bilateral Complete DATE OF EXAM: 06/26/2019 CLINICAL HISTORY: Multiple falls with bruising over joints. Bilateral hip pain. TECHNIQUE: AP and frogleg views of the bilateral hips were obtained. COMPARISON: None. FINDINGS: There is no acute fracture/dislocation evident in either hip. The joint space in the bila teral hips appears aligned. The overlying soft tissue appears unremarkable. Diffuse osseous demineral ization is seen. Mild joint space narrowing and acetabular roof sclerosis bilaterally. Punctate scler otic focus is noted of the right femoral head neck junction. IMPRESSION: 1. No acute fracture or dislocation in either hip. 2. Mild femoral acetabular arthropathy bilaterally and punctate sclerotic focus of the right femoral head neck junction, likely benign bone island.
--- NOTE | 2019-06-26 11:05 | XR ---
EXAMINATION TYPE: XR clavicle bilateral DATE OF EXAM: 06/26/2019 COMPARISON: NONE HISTORY: Multiple falls with bruising over multiple joints. Clavicular pain. TECHNIQUE: 2 views of the bilateral clavicles were obtained. FINDINGS: There is mild to moderate bilateral acromioclavicular arthropathy with capsular hypertrophy and marginal osteophytes. No acute displaced clavicular fracture is seen of either clavicle. IMPRESSION: No acute displaced clavicular fracture of either clavicle.
== END | disposition home or self-care (01) ==
LOC: RADXRMAIN 10:04
PROVIDERS: ATTEND Family Medicine
DX: M12.852 Other specific arthropathies, not elsewhere classified, left hip (principal); M12.851 Other specific arthropathies, not elsewhere classified, right hip; M25.521 Pain in right elbow; M25.532 Pain in left wrist; M25.512 Pain in left shoulder
CPT/HCPCS: 73521

== ENCOUNTER → 2019-09-09 | Outpatient (CLI) | payer MEDICARE, OTHER ==
--- NOTE | 2019-09-09 21:45 | CT ---
EXAMINATION TYPE: CT brain wo con DATE OF EXAM: 09/09/2019 HISTORY: Syncope and collapse CT DLP: 1199.70 mGycm. Automated Exposure Control for Dose Reduction was Utilized. TECHNIQUE: CT scan of the head is performed without contrast. COMPARISON: CT brain July 14, 2015.. FINDINGS: There is no acute intracranial hemorrhage or midline shift identified. There is diffuse v entricular and sulcal prominence consistent with diffuse age-related cerebral atrophy. There is low- attenuation in the periventricular white matter consistent with chronic small vessel ischemic change. Old lacunar infarct right head of caudate nucleus axial image 30 is redemonstrated. Persistent smal l mucous retention cyst or polyp lateral aspect left maxillary sinus on axial image 10. Remainder par anasal sinuses are clear. Globes are intact bilaterally. No new opacification mastoid air cells. Susp ect old infarct inferior central right cerebellum axial image 15 not significant change from prior. IMPRESSION: No acute intracranial hemorrhage or midline shift. There is mild to moderate diffuse ce rebral atrophy and chronic small vessel ischemic change along with old cerebellar infarct and right h ead of caudate nucleus lacunar infarct are all redemonstrated. No significant change from prior.
== END | disposition home or self-care (01) ==
LOC: RADCTMAIN 16:47
PROVIDERS: ATTEND Family Medicine
DX: I67.82 Cerebral ischemia (principal); Z88.5 Allergy status to narcotic agent
CPT/HCPCS: 70450

== ENCOUNTER → 2019-10-30 | Outpatient (CLI) | payer MEDICARE, OTHER ==
--- NOTE | 2019-10-30 09:40 | XR ---
Cervical spine history: M [age], neck pain, fall one month prior 5 views of the cervical spine Correlation to prior exam 04/07/2011 There is multilevel facet arthropathy change. Foraminal encroachment present at C3-4, C4-5, C6-7 on t he right, C4-5 on the left and at C6-7. Cervical vertebral bodies show preserved height, stable bone mineralization. Alignment is unchanged, minimal anterolisthesis grade 1 C4-5, C5-6. Loss of disc heig ht is greatest at C4-5, C6-7 and to lesser extent C5-6 and C7-T1 with associated spondylosis. Prevert ebral soft tissues are unremarkable. Tip of the odontoid not seen on the frontal view. IMPRESSION: Stable degenerative disc disease and facet arthropathy. No acute fracture or subluxation.
== END | disposition home or self-care (01) ==
LOC: RADXRMAIN 09:09
PROVIDERS: ATTEND Family Medicine
DX: M50.30 Other cervical disc degeneration, unspecified cervical region (principal); M46.96 Unspecified inflammatory spondylopathy, lumbar region
CPT/HCPCS: 72050

== ENCOUNTER → 2019-11-18 | Outpatient (CLI) | payer MEDICARE, OTHER ==
--- NOTE | 2019-11-19 07:09 | US ---
EXAMINATION TYPE: US carotid duplex BILAT DATE OF EXAM: 11/18/2019 COMPARISON: NONE CLINICAL HISTORY: R55 Syncope.Fell EXAM MEASUREMENTS: RIGHT: Peak Systolic Velocity (PSV) cm/sec ----- Right CCA: 90.3 ----- Right ICA: 117 ----- Right ECA: 75.9 ICA/CCA ratio: 1.3 RIGHT: End Diastole cm/sec ----- Right CCA: 13.6 ----- Right ICA: 17.2 ----- Right ECA: 0 LEFT: Peak Systolic Velocity (PSV) cm/sec ----- Left CCA: 91.1 ----- Left ICA: 89.1 ----- Left ECA: 89.1 ICA/CCA ratio: 1.0 LEFT: End Diastole cm/sec ----- Left CCA: 14.2 ----- Left ICA: 0 ----- Left ECA: 0 VERTEBRALS (direction of flow): Right Vertebral: Antegrade Left Vertebral: Antegrade Rhythm: Normal No significant stenosis seen IMPRESSION: No evidence for hemodynamically significant stenosis. Criteria for Assigning % of Stenosis / Diameter reduction (Estimation based on the indirect measurements of the internal carotid artery velocities (ICA PSV). 1. Normal (no stenosis)=ICA PSV < 125 cm/s: ratio < 2.0: ICA EDV<40 cm/s. 2. Less than 50% stenosis=ICA PSV < 125 cm/s: ratio < 2.0: ICA EDV<40 cm/s. 3. 50 to 69% stenosis=ICA PSV of 125 to 230 cm/s: ration 2.0 ? 4.0: ICA EDV 40-100 cm/s. 4. Greater than 70% stenosis to near occlusion= ICA PSV > 230 cm/s: ratio > 4.0: ICA EDV > 100 cm/s. 5. Near occlusion= ICA PSV velocities may be low or undetectable: variable ratio and ICA EDV. 6. Total occlusion=unable to detect flow.
== END | disposition home or self-care (01) ==
LOC: RADUSWWP 15:46
PROVIDERS: ATTEND Family Medicine
DX: R55 Syncope and collapse (principal)
CPT/HCPCS: 93880

== ENCOUNTER → 2019-12-09 | Outpatient (CLI) | payer MEDICARE, OTHER ==
--- NOTE | 2019-12-09 17:14 | XR ---
EXAMINATION TYPE: XR chest 2V DATE OF EXAM: 12/09/2019 CLINICAL HISTORY: R05 Cough. TECHNIQUE: Frontal and lateral view of the chest. COMPARISON: 12/11/2018 chest radiograph FINDINGS: The cardiomediastinal silhouette is unchanged. No cardiomegaly. Tortuous thoracic aorta. P ulmonary vasculature is normal. There is no focal air space opacity, pleural effusion, or pneumothora x seen. Interstitial reticular mild coarsening of the left lung base similar to 2019 comparison. Dege nerative changes of the spine. Chilaiditi under the right hemidiaphragm, with no evidence of pneumope ritoneum. IMPRESSION: No acute cardiopulmonary process.
== END | disposition home or self-care (01) ==
LOC: RADXRMAIN 15:28
PROVIDERS: ATTEND Family Medicine
DX: R05 Cough (principal)
CPT/HCPCS: 71046

== ENCOUNTER 2020-03-15 16:00 | Inpatient (IN) | payer MEDICARE, OTHER ==
[2020-03-15 16:30] LABS: Basophils % (A) 1 %; Eosinophils % (A) 1 %; HCT 39.7 % (39.0-53.0); HGB 13.6 gm/dL (13.0-17.5); Lymphocytes # (A) 1.3 k/uL (1.0-4.8); Lymphocytes % (A) 21 %; MCH 33.9 pg (25.0-35.0); MCHC 34.2 g/dL (31.0-37.0); Monocytes # (A) 0.5 k/uL (0-1.0); Monocytes % (A) 8 %; Neutrophils # (A) 4.5 k/uL (1.3-7.7); Neutrophils % (A) 68 %; Platelet Count 177 k/uL (150-450); RBC 4.01 m/uL (4.30-5.90); RDW 14.8 % (11.5-15.5); WBC 6.5 k/uL (3.8-10.6)
--- NOTE | 2020-03-15 16:41 | ED ---
General Adult HPI - General Chief complaint: Neuro Symptoms/Deficit Stated complaint: Headache, Diff Speaking Time Seen by Provider: 03/15/20 16:05 Source: patient, police Mode of arrival: wheelchair Limitations: no limitations - History of Present Illness Initial comments: Patient is an 89-year-old male past history of A. fib on Coumadin who presents t o emergency room with reported possible strokelike symptoms. Daughter states the patient had a phone call this morning for which she was having difficulties communicating. He lives next door and walked over to his daughter's house. Daughter states that his speech was fine for a little bit but then the patient developed garbled speech. The event happened 30 minutes prior to hospital arrival. They lasted for approximately 20 minutes before spontaneously resolving. Patient presents with clear speech. Admits to a 6 out of 10 headache. No visual changes. Denies any neck stiffness. No fevers or chills. Denies any weakness in his extremities. No reported facial droop per the daughter. He is on Coumadin and has been taking it as directed. No nausea or vomiting. No chest pain or shortness of breath. No other alleviating, precipitating or modifying factors - Related Data Home Medications Medication Instructions Recorded Confirmed Aspirin EC [Ecotrin Low Dose] 81 mg PO DAILY@192909/23/13 03/15/20 Levothyroxine Sodium [Synthroid] 50 mcg PO DAILY@79909/23/13 03/15/20 Montelukast [Singulair] 10 mg PO DAILY@192909/23/13 03/15/20 Omeprazole [PriLOSEC] 20 mg PO BID@08,192909/23/13 03/15/20 Warfarin [Coumadin] 5 mg PO SUTUTHSA@192909/23/13 03/15/20 Flecainide Acetate [Tambocor] 100 mg PO BID@08,192911/15/15 03/15/20 Warfarin Sodium 7.5 mg PO MOWEFR@192911/15/15 03/15/20 Atorvastatin Calcium [Lipitor] 10 mg PO DAILY@192903/15/20 03/15/20 DULoxetine HCL [Cymbalta] 60 mg PO DAILY@1200 03/15/20 03/15/20 Fludrocortisone [Florinef] 0.1 mg PO DAILY@0800 03/15/20 03/15/20 Verapamil [Isoptin] 40 mg PO BID@0800,1930 03/15/20 03/15/20 Previous Rx's Medication Instructions Recorded Multivitamin [Multivitamins Adult 1 each PO DAILY #30 tablet 03/18/20 Gummies] clonazePAM [KlonoPIN] 0.5 mg PO BID #60 tab 03/18/20 levETIRAcetam [Keppra] 500 mg PO BID #60 tab 03/18/20 Allergies Allergy/AdvReac Type Severity Reaction Status Date / Time clarithromycin [From Biaxin] Allergy Unknown Rash/Hives Verified 03/15/20 16:04 indomethacin [From Indocin] AdvReac Severe states Verified 03/15/20 16:04 "severe asthma attack indomethacin sodium AdvReac Severe states Verified 03/15/20 16:04 [From Indocin] "severe asthma attack" morphine AdvReac Unknown Hallucinati Verified 03/15/20 16:04 ons PERFUME AdvReac Dyspnea Uncoded 03/15/20 16:04 Review of Systems ROS Statement: Those systems with pertinent positive or pertinent negative responses have been documented in the HPI. ROS Other: All systems not noted in ROS Statement are negative. Past Medical History Past Medical History: Atrial Fibrillation, Asthma, Coronary Artery Disease (CAD), Chest Pain / Angina, GERD/Reflux, Hyperlipidemia, Osteoarthritis (OA), Sleep Apnea/CPAP/BIPAP, Thyroid Disorder Additional Past Medical History / Comment(s): Afib RVR, hiatal hernia, narrow esophagus, dysphagia with certain foods, arthritis in multiple joints, NATE without device, hypothyroid, bilateral tinnitis, anemia, bronchitis, seasonal allergies, sinus problems at times. 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 Past Psychological History: No Psychological Hx Reported Smoking Status: Former smoker Past Alcohol Use History: None Reported Past Drug Use History: None Reported - Past Family History Father History Unknown: Yes (Father secondary to bowel obstruction at age 69) Additional Family Medical History / Comment(s): Father of a bowel obstruction at the age of 69yrs. Mother History Unknown: Yes (Mother from CAD CHF) Family Medical History: Congestive Heart Failure (CHF), Coronary Artery Disease (CAD), Diabetes Mellitus (Mother at age 75 from CAD, diabetes, blindness.) Brother(s) History Unknown: Yes Family Medical History: Coronary Artery Disease (CAD) (He shouldn't had 5 brothers to still alive one of them with CAD and multiple stents placement in the other one CAD and he had 3 brothers passed one from throat cancer 1 from leukemia ended third one not sure the cause of .) Sister(s) History Unknown: Yes Family Medical History: Thyroid Disorder (Patient had 5 sisters 3 alive one with hypothyroidism bradycardia and GERD 1 is 93-year-old and the other one and sure of any health issues patient had a sister who from stomach cancer and the fifth 1 of unknown cause.) Daughter(s) History Unknown: Yes Family Medical History: Musculoskeletal Disorder (Patient has 2 daughters one of them is all right the other one with fibromyalgia and migraine headaches.) Son(s) History Unknown: Yes Family Medical History: Osteoarthritis (OA) (Patient has 2 sons one of them is a right the other one had a work accident ended up with osteoarthritis) General Exam Limitations: language barrier General appearance: alert, anxious Head exam: Present: atraumatic, normocephalic, normal inspection Eye exam: Present: normal appearance, PERRL, EOMI. Absent: scleral icterus, conjunctival injection, periorbital swelling ENT exam: Present: normal exam, mucous membranes moist Neck exam: Present: normal inspection. Absent: tenderness, meningismus, lymphadenopathy Respiratory exam: Present: normal lung sounds bilaterally. Absent: respiratory distress, wheezes, rales, rhonchi, stridor Cardiovascular Exam: Present: normal rhythm, tachycardia GI/Abdominal exam: Present: soft, normal bowel sounds. Absent: distended, tenderness, guarding, rebound, rigid Extremities exam: Present: other (3/5 weakness b/l le) Neurological exam: Present: alert, other (anxious. Originally answers both questions appropriately but on repeat exam can not answer any questions. expressive aphasia and mild dysarthria) Psychiatric exam: Present: agitated, anxious Skin exam: Present: warm, dry, intact, normal color. Absent: rash Course Vital Signs 03/15/20 03/15/20 03/15/20 16:04 16:20 17:05 Temperature 99.3 F Pulse Rate 102 H 101 H 102 H Respiratory 18 20 24 Rate Blood Pressure 172/112 167/104 171/94 O2 Sat by Pulse 100 99 98 Oximetry 03/15/20 18:45 Temperature 98.9 F Pulse Rate 101 H Respiratory 20 Rate Blood Pressure 175/98 O2 Sat by Pulse 98 Oximetry - Reevaluation(s) Reevaluation #1: Called to the room - patient now demonstrating active signs of AMS. NIH 03/15/20 16:40 Reevaluation #2: 03/15/20 16:[address] Macedo - reviewing images Reevaluation #3: Spoke with Dr. Mcaedo - no large vessel occlusion - admit for MRI, EEG 03/15/20 17:05 EKG Findings - EKG Comments: EKG Findings:: EKG demonstrates sinus rhythm with first-degree AV block. Rate of 97. AR interval 214. QRS 94. QTC of 472. No acute ST segment elevations or depressions. Medical Decision Making - Medical Decision Making Upon arrival the patient's placed into room 1. A thorough history and physical exam was performed. He is able to answer all questions appropriately and follow commands. No speech difficulties or lateralizing weakness. Laboratory studies are ordered. 12-lead EKG was performed. IV was established. Patient was awaiting CT was called back into the room. The patient does have sudden onset of garbled speech. He demonstrates weakness in his bilateral lower extremities. Patient immediately taken over for CT and a code stroke was activated. Spoke with Dr. Macedo who states the patient would not be a TPA candidate due to his anticoagulation. CT of the brain as well as CT angiography is performed which demonstrates an old right caudate nucleus lacunar infarct. CT angios head and neck demonstrates normal vessels with no large thrombus. Chest x-ray demonstrates mild interstitial infiltrate and subsegmental atelectasis. I did speak with Dr. Macedo in regards to the patient's symptoms and CT results. Dr. Amador states there is no large vessel occlusion. Recommends MRI, EEG, neurology consultation. Patient's Coumadin to be held until evaluated by neurology. He is given a full dose aspirin. Patient updated in regards to his symptoms. Daughter at bedside is also updated. Focal with Dr. Tang who a ccepted admission the patient. Patient awaiting a bed on the floor - Lab Data Result diagrams: 03/15/20 16:20 03/15/20 16:20 Lab Results 03/15/20 03/15/20 03/15/20 Range/Units 16:20 16:20 16:20 WBC 6.5 (3.8-10.6) k/uL RBC 4.01 L (4.30-5.90) m/uL Hgb 13.6 (13.0-17.5) gm/dL Hct 39.7 (39.0-53.0) % MCV 99.0 (80.0-100.0) fL MCH 33.9 (25.0-35.0) pg MCHC 34.2 (31.0-37.0) g/dL RDW 14.8 (11.5-15.5) % Plt Count 177 (150-450) k/uL MPV 7.0 Neutrophils % 68 % Lymphocytes % 21 % Monocytes % 8 % Eosinophils % 1 % Basophils % 1 % Neutrophils # 4.5 (1.3-7.7) k/uL Lymphocytes # 1.3 (1.0-4.8) k/uL Monocytes # 0.5 (0-1.0) k/uL Eosinophils # 0.0 (0-0.7) k/uL Basophils # 0.0 (0-0.2) k/uL PT 23.4 H (9.0-12.0) sec INR 2.4 H (<1.2) APTT 29.1 (22.0-30.0) sec Sodium 139 (137-145) mmol/L Potassium 4.0 (3.5-5.1) mmol/L Chloride 102 (98-107) mmol/L Carbon Dioxide 28 (22-30) mmol/L Anion Gap 9 mmol/L BUN 18 (9-20) mg/dL Creatinine 1.17 (0.66-1.25) mg/dL Est GFR (CKD-EPI)AfAm 67 (>60 ml/min/1.73 sqM) Est GFR (CKD-EPI)NonAf 58 (>60 ml/min/1.73 sqM) Glucose 86 (74-99) mg/dL Calcium 9.3 (8.4-10.2) mg/dL Total Bilirubin 1.1 (0.2-1.3) mg/dL AST 29 (17-59) U/L ALT 16 (4-49) U/L Alkaline Phosphatase 69 (38-126) U/L Troponin I (0.000-0.034) ng/mL Total Protein 7.4 (6.3-8.2) g/dL Albumin 4.3 (3.5-5.0) g/dL 03/15/20 Range/Units 16:20 WBC (3.8-10.6) k/uL RBC (4.30-5.90) m/uL Hgb (13.0-17.5) gm/dL Hct (39.0-53.0) % MCV (80.0-100.0) fL MCH (25.0-35.0) pg MCHC (31.0-37.0) g/dL RDW (11.5-15.5) % Plt Count (150-450) k/uL MPV Neutrophils % % Lymphocytes % % Monocytes % % Eosinophils % % Basophils % % Neutrophils # (1.3-7.7) k/uL Lymphocytes # (1.0-4.8) k/uL Monocytes # (0-1.0) k/uL Eosinophils # (0-0.7) k/uL Basophils # (0-0.2) k/uL PT (9.0-12.0) sec INR (<1.2) APTT (22.0-30.0) sec Sodium (137-145) mmol/L Potassium (3.5-5.1) mmol/L Chloride (98-107) mmol/L Carbon Dioxide (22-30) mmol/L Anion Gap mmol/L BUN (9-20) mg/dL Creatinine (0.66-1.25) mg/dL Est GFR (CKD-EPI)AfAm (>60 ml/min/1.73 sqM) Est GFR (CKD-EPI)NonAf (>60 ml/min/1.73 sqM) Glucose (74-99) mg/dL Calcium (8.4-10.2) mg/dL Total Bilirubin (0.2-1.3) mg/dL AST (17-59) U/L ALT (4-49) U/L Alkaline Phosphatase (38-126) U/L Troponin I <0.012 (0.000-0.034) ng/mL Total Protein (6.3-8.2) g/dL Albumin (3.5-5.0) g/dL Critical Care Time Critical Care Time: Yes Critical Care Time: 35 minutes Disposition Clinical Impression: Cerebrovascular accident (CVA) Disposition: ADMITTED IP TO THIS [facility] Condition: Good Is patient prescribed a controlled substance at d/c from ED?: No Decision to Admit Reason: Admit from EC Decision Date: 03/15/20 Decision Time: 18:14
[2020-03-15 16:44] LABS: INR 2.4 (<1.2); Partial Thromboplastin Time 29.1 sec (22.0-30.0); Prothrombin Time 23.4 sec (9.0-12.0)
[2020-03-15 16:48] LABS: Albumin 4.3 g/dL (3.5-5.0); Calcium 9.3 mg/dL (8.4-10.2); Total Bilirubin 1.1 mg/dL (0.2-1.3); Total Protein 7.4 g/dL (6.3-8.2)
--- NOTE | 2020-03-15 17:30 | CT ---
EXAMINATION TYPE: CT brain wo con DATE OF EXAM: 03/15/2020 COMPARISON: 09/09/2019 HISTORY: Weakness and speech difficulty CT DLP: 1310.8 mGycm Automated exposure control for dose reduction was used. There is some cerebral cortical atrophy. There is no mass effect nor midline shift. There is no sign of intracranial hemorrhage. There is white matter hypodensity right caudate nucleus that measures 10 mm. The calvarium is intact. Skull base is intact. IMPRESSION: Cerebral atrophy. 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 No acute abnormality. No change.
--- NOTE | 2020-03-15 17:32 | XR ---
EXAMINATION TYPE: XR chest 1V portable DATE OF EXAM: 03/15/2020 COMPARISON: 12/09/2019 HISTORY: Right-sided chest pain TECHNIQUE: FINDINGS: There is some mild interstitial infiltrates at the lung bases. There is poor inspiration. H eart size is normal. There is no heart failure. IMPRESSION: Mild interstitial infiltrates and subsegmental atelectasis at the lung bases increased co mpared to old exam. Normal heart.
--- NOTE | 2020-03-15 17:45 | CT ---
EXAMINATION TYPE: CT angio head neck DATE OF EXAM: 03/15/2020 COMPARISON: None HISTORY: Weakness and speech difficulty. DLP: CT DLP: 497.8 mGycm Automated exposure control for dose reduction was used. CONTRAST: Performed with IV Contrast, patient injected with 75 mL of Isovue 370. Images obtained from the aortic arch to the vertex of the brain with IV contrast and 3-D post process ed images. There is normal branching pattern of the great vessels on the aortic arch. There is bilateral arteria l flow in the subclavian arteries. There is arterial flow in both vertebral arteries. There is arteri al flow in the vertebrobasilar artery system. Vertebral arteries appear widely patent. There is arter ial flow in the common internal and external carotid arteries bilaterally. Carotid artery bifurcation s are widely patent. There is arterial flow in the anterior middle and posterior cerebral arteries. There is no evidence o f intracranial aneurysm or neovascularity. I see no evidence of hemodynamic stenosis. There is no mas s effect. There is normal contrast opacification of the venous sinuses. IMPRESSION: Normal CT angiogram of the neck. Normal CT angiogram of the brain.
[2020-03-15] MEDS ORDERED: ASPIRIN 325 MG TAB PO STA (18:24)
[2020-03-15] MEDS ORDERED: diphenhydrAMINE 50 MG/ML 1 ML VIAL IVP STA (18:25)
[2020-03-15] MEDS ORDERED: ALPRAZolam 0.5 MG TAB PO PRN (21:04)
[2020-03-15] MEDS ORDERED: WARFARIN 5 MG TAB PO SCH (21:30)
[2020-03-15] MEDS ORDERED: WARFARIN 0.5 MG TAB PO ONE (21:30)
[2020-03-15] MEDS: ACETAMINOPHEN TAB 325 MG TAB PO PRN (23:11)
[2020-03-16] MEDS: levETIRAcetam IV 500 MG in SODIUM CHLORIDE 0.9% 100 ML IVPB SCH ×2 (04:25→09:26)
[2020-03-16] MEDS: PANTOPRAZOLE 40 MG TABLET PO SCH (07:00)
[2020-03-16 07:53] LABS: INR 2.1 (<1.2); Partial Thromboplastin Time 27.8 sec (22.0-30.0); Prothrombin Time 20.2 sec (9.0-12.0)
[2020-03-16 07:56] LABS: Cholesterol 146 mg/dL (<200); HDL Cholesterol 45 mg/dL (40-60); LDL Cholesterol,Calculated 90 mg/dL (0-99); Triglycerides 53 mg/dL (<150)
[2020-03-16] MEDS: FLECAINIDE 50 MG TAB PO SCH ×2 (09:06→20:27)
[2020-03-16] MEDS: FLUDROCORTISONE 0.1 MG TAB PO SCH (09:06)
[2020-03-16] MEDS: LEVOTHYROXINE 50 MCG TAB PO SCH (09:06)
[2020-03-16] MEDS: ACETAMINOPHEN TAB 325 MG TAB PO PRN ×2 (09:25→20:31)
[2020-03-16] MEDS: VERAPAMIL 40 MG TAB PO SCH ×2 (09:27→20:53)
--- NOTE | 2020-03-16 11:27 | ECHOF ---
Referral Reason:Thrombus MEASUREMENTS -------- HEIGHT: 182.9 cm WEIGHT: 73.5 kg BP: RVIDd: 3.7 cm (< 3.3) IVSd: 1.2 cm (0.6 - 1.1) LVIDd: 3.8 cm (3.9 - 5.3) LVPWd: 1.5 cm (0.6 - 1.1) IVSs: 1.1 cm LVIDs: 2.7 cm LVPWs: 1.5 cm Ao Diam: 3.9 cm (2.0 - 3.7) AV Cusp: 1.7 cm (1.5 - 2.6) MV E Hunter: 0.47 m/s MV DecT: 266 ms MV A Hunter: 0.64 m/s MV E/A Ratio: 0.74 RAP: 5.00 mmHg RVSP: 21.42 mmHg FINDINGS -------- Sinus rhythm. This was a technically adequate study. LV size, wall thickness and systolic function are normal, with an EF greater than 55%. The left carolina tricular size is normal. The right ventricle is mildly enlarged. The left atrial size is normal. The right atrial size is normal. Aortic valve is trileaflet and is mildly thickened. The mitral valve is normal. Mild mitral regurgitation is present. The tricuspid valve appears structurally normal. Mild tricuspid regurgitation present. Right vent ricular systolic pressure is normal at < 35 mmHg. The pulmonic valve was not well visualized. Aortic Root is dilated and measures 3.9cm. There is no pericardial effusion. CONCLUSIONS -------- 1. LV size, wall thickness and systolic function are normal, with an EF greater than 55%. 2. The right ventricle is mildly enlarged. 3. Aortic valve is trileaflet and is mildly thickened. 4. Mild mitral regurgitation is present. 5. Mild tricuspid regurgitation present. 6. Aortic Root is dilated and measures 3.9cm. CEPHALOMETRIC TRACER: Guerline Basilio RDCS
[2020-03-16] MEDS ORDERED: DULoxetine HCL 30 MG CAPSULE.DR PO SCH (12:00)
[2020-03-16] MEDS ORDERED: DULoxetine HCL 60 MG CAPSULE.DR PO SCH (12:00)
--- NOTE | 2020-03-16 13:55 | P.CNNES ---
History of Present Illness Consult date: 03/16/20 Requesting physician: Vanessa Mckeon Reason for Consult: Acute expressive aphasia, suspected CVA History of Present Illness: Patient is a 84-year-old male, with history of atrial fibrillation, on Coumadin came to the hospital yesterday at 4 PM with possible strokelike symptoms. Patient states that he got a call from to schedule appointment. While he was talking to his family, he could not understand what his daughter was talking. He couldn't write anything down on the paper. He was having problem with comprehension. Therefore he was brought to the hospital. I spoke to patient's daughter on the phone, who tells me that he went to her house, and was talking gibberish, could not understand anything. He did have some headache. He was hallucinating, talking about the past. There was no facial droop, focal weakness except for gibberish speech. As his symptoms persisted, she brought him to the hospital. Vital signs on arrival blood pressure 172/112, pulse rate 12, temperature 99.3. CT head showed cerebral atrophy. 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 No acute abnormality. No change. Chest x-ray showed mild interstitial infiltrate and subsegmental atelectasis at the lung bases increased compared as to the old exam. Normal heart. CT angiogram of head and neck normal. EKG shows sinus rhythm with first-degree AV block. Blood test shows normal the BBC, hemoglobin 13.6, platelet 177. INR 2.4, prothrombin time 23.4 and PTT 29.1 Chem-20 normal, lipid panel with cholesterol 146, LDL 90, HDL 45 and triglycerides 53. Patient's last hemoglobin A1c 5.7 on 06/26/2019. Patient recently had negative rheumatoid factor on 02/29/2020, SATHISH negative, Sjogren's antibodies negative, dsDNA negative. Thyroid peroxidase antibodies and HLA-B27 negative. Patient takes Coumadin, aspirin 81 mg, flecainide 100 mg twice a day, Florinef 0.1 mg daily, Cymbalta 90 mg, Xanax 0.5 mg every 8 hours Lipitor 10 mg and verapamil 40 mg twice a day. Patient smoked 1 pack per day for 26 years, in 1974. He drinks alcohol very rarely. Denies hypertension or diabetes. Patient's daughter states that his initial symptoms of gibberish speech lasted for an hour and he was fine for another hour, but then he became confused and started having body jerks. The nurse called me last night at 10:44 PM about patient having intermittent body jerks, almost like she worse, and then he moans for a couple seconds. He is otherwise following commands, but has been having these episodes frequently. Stat EEG was ordered, Keppra 500 mg twice a day was initiated empirically. MRI was changed from regular routine to stat. Patient's daughter mentions that he received COVID first vaccination on 021. He was fine afterwards. About a week ago he had a mild confusional episode in which he was trying to zip his scarf with his coat, but there was no speech problem or jerking. Patient is otherwise quite active, walks with a cane and walks with his daughter almost a mile everyday. He was fine on Saturday. Yesterday on Saturday the symptoms happened as above. Patient's daughter states that he has improved significantly as compared to yesterday, but still body jerks going on. She noted that when he was sleeping last night, he was not having body jerks. Patient does not have any history of restless legs or PLMS. Review of Systems Patient does have some headache. Denies any double vision, loss of vision hearing loss, hoarseness, sore throat, dysphagia. Denies any chest pain, nausea vomiting diarrhea. Patient does complain of abdominal pain pointing to the epigastric region. Patient complains of generalized weakness. Denies any fever or chills. Denies any rash. Denies any loss of control of urine. Denies dysuria. Patient has arthritis. Past Medical History Past Medical History: Atrial Fibrillation, Asthma, Coronary Artery Disease (CAD), Chest Pain / Angina, GERD/Reflux, Hyperlipidemia, Osteoarthritis (OA), Sleep Apnea/CPAP/BIPAP, Thyroid Disorder Additional Past Medical History / Comment(s): Afib RVR, hiatal hernia, narrow esophagus, dysphagia with certain foods, arthritis in multiple joints, NATE without device, hypothyroid, bilateral tinnitis, anemia, bronchitis, sinus p roblems at times. 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 Past Psychological History: Anxiety Additional Psychological History / Comment(s): Patient's daughter states that the patient lives 2 houses down from her. Drives himself to appointments, etc. Patient's daughter states that the patient has had some generalized anxiety and takes an antidepressant since his approximately 1 year ago. Smoking Status: Former smoker Past Alcohol Use History: None Reported Additional Past Alcohol Use History / Comment(s): Pt started smoking in 1949 and quit in 1974. Past Drug Use History: None Reported - Past Family History Father History Unknown: Yes Additional Family Medical History / Comment(s): Father of a bowel obstruction at the age of 69yrs. Mother History Unknown: Yes Family Medical History: Congestive Heart Failure (CHF), Coronary Artery Disease (CAD), Diabetes Mellitus Brother(s) History Unknown: Yes Family Medical History: Coronary Artery Disease (CAD) (He shouldn't had 5 brothers to still alive one of them with CAD and multiple stents placement in the other one CAD and he had 3 brothers passed one from throat cancer 1 from leukemia ended third one not sure the cause of .) Sister(s) History Unknown: Yes Family Medical History: Thyroid Disorder (Patient had 5 sisters 3 alive one with hypothyroidism bradycardia and GERD 1 is 93-year-old and the other one and sure of any health issues patient had a sister who from stomach cancer and the fifth 1 of unknown cause.) Daughter(s) History Unknown: Yes Family Medical History: Musculoskeletal Disorder (Patient has 2 daughters one of them is all right the other one with fibromyalgia and migraine headaches.) Son(s) History Unknown: Yes Family Medical History: Osteoarthritis (OA) (Patient has 2 sons one of them is a right the other one had a work accident ended up with osteoarthritis) Medications and Allergies Home Medications Medication Instructions Recorded Confirmed Type Aspirin EC [Ecotrin Low Dose] 81 mg PO DAILY@192909/23/13 03/15/20 History Levothyroxine Sodium [Synthroid] 50 mcg PO DAILY@0809/23/13 03/15/20 History Montelukast [Singulair] 10 mg PO DAILY@192909/23/13 03/15/20 History Omeprazole [PriLOSEC] 20 mg PO BID@08,192909/23/13 03/15/20 History Warfarin [Coumadin] 5 mg PO SUTUTHSA@192909/23/13 03/15/20 History Flecainide Acetate [Tambocor] 100 mg PO BID@08,192911/15/15 03/15/20 History Warfarin Sodium 7.5 mg PO MOWEFR@192911/15/15 03/15/20 History ALPRAZolam [Xanax] 0.5 mg PO Q8H PRN 03/15/20 03/15/20 History Atorvastatin Calcium [Lipitor] 10 mg PO DAILY@192903/15/20 03/15/20 History DULoxetine HCL [Cymbalta] 30 mg PO DAILY@1200 03/15/20 03/15/20 History DULoxetine HCL [Cymbalta] 60 mg PO DAILY@1200 03/15/20 03/15/20 History Fludrocortisone [Florinef] 0.1 mg PO DAILY@0800 03/15/20 03/15/20 History Verapamil [Isoptin] 40 mg PO BID@08,192903/15/20 03/15/20 History Allergies Allergy/AdvReac Type Severity Reaction Status Date / Time clarithromycin [From Biaxin] Allergy Unknown Rash/Hives Verified 03/15/20 16:04 indomethacin [From Indocin] AdvReac Severe states Verified 03/15/20 16:04 "severe asthma attack indomethacin sodium AdvReac Severe states Verified 03/15/20 16:04 [From Indocin] "severe asthma attack" morphine AdvReac Unknown Hallucinati Verified 03/15/20 16:04 ons PERFUME AdvReac Dyspnea Uncoded 03/15/20 16:04 Physical Examination - Vital Signs Vital Signs: Vital Signs Temp Pulse Pulse Resp BP BP BP 03/16/20 08:00 98.1 F 84 16 113/68 03/16/20 04:00 98.6 F 86 17 136/80 03/16/20 02:00 17 03/16/20 00:00 97.7 F 103 H 17 138/74 03/15/20 20:00 97.9 F 94 18 168/85 03/15/20 18:45 98.9 F 101 H 20 175/98 03/15/20 17:05 102 H 24 171/94 03/15/20 16:20 101 H 20 167/104 03/15/20 16:04 99.3 F 102 H 18 172/112 Pulse Ox 03/16/20 08:00 96 03/16/20 04:00 94 L 03/16/20 02:00 03/16/20 00:00 97 03/15/20 20:00 98 03/15/20 18:45 98 03/15/20 17:05 98 03/15/20 16:20 99 03/15/20 16:04 100 Intake and Output 03/15/20 03/16/20 03/16/20 22:59 06:59 14:59 Output Total 400 Balance -400 Output: Urine 400 Other: Voiding Method Toilet Toilet # Voids 1 # Bowel Movements 1 Weight 69.763 kg 73.5 kg On examination patient is an elderly male, who is slightly somnolent, but does wake up, follows commands. Patient knows it is February 2020 and that is in [facility]. He knows his date of and name of the current president. Speech and language functions are normal. Patient sometimes mumbles, and speaks with low volume, but otherwise did not have any paraphasic errors, no aphasia noted. Patient follows commands well. Attention span, concentration is slightly limited. On cranial nerve examination pupils are round and reactive to light, visual renae are full on confrontation with no neglect. Extraocular muscles are intact with no nystagmus. Face is symmetric, tongue protrudes to midline. Palatal elevation sensation normal. Hearing and shoulder shrug normal. On muscle strength testing patient has no pronator drift and the strength is normal in arms and legs reflexes are very diminished to absent and plantars are downgoing. Sensory to touch is equal with no neglect. No ataxia for [id number] testing. Patient is having intermittent episodes of body jerks and then he moans for a couple seconds, which at times appears like hickups. He is awake and alert during these jerks. There is no obvious bruit or murmur, peripheral pulses present. No edema. Chest is clear, abdomen soft nontender. Results - Laboratory Findings CBC and BMP: 03/15/20 16:20 03/15/20 16:20 Abnormal Lab Findings: Abnormal Labs 03/15/20 03/15/20 03/16/20 16:20 16:20 06:54 RBC 4.01 L PT 23.4 H 20.2 H INR 2.4 H 2.1 H Assessment and Plan Assessment: * 84-year-old male with episode of expressive aphasia, which now seems to have resolved. Patient's examination is nonfocal. Rule out TIA/CVA. * Intermittent transient brief episodes of body jerking (almost like shivers), followed by moaning. There is no associated alteration of mentation, therefore seizures unlikely. Possible myoclonus. Exact cause is uncertain. Patient received first dose of Covid vaccination on 03/04/2020. Doubt symptoms would be related to vaccination as symptoms occurred 11 days after the vaccination. * Atrial fibrillation on anticoagulation with Coumadin. INR is therapeutic. * Coronary artery disease Plan: * Patient had an EEG performed today, which revealed mild to moderate background slowing, with frontal intermittent rhythmic delta activity, suggestive of metabolic encephalopathy. No definitive epileptiform activity was seen. * Await MRI of the brain. CVA somewhat less likely, as patient is on Coumadin with therapeutic INR. Also on aspirin 81 mg. * CTA head and neck negative for any stenosis. * 2-D echo showed EF greater than 55%. Right ventricle is mildly enlarged. 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 Today INR is 2.1. * Continue Lipitor 10 mg. * We will check B12, folate, TSH. Hemoglobin A1c was 5.7 06/26/2019. * We will follow. Addendum: MRI of the brain was performed, which revealed no evidence of acute infarct. Mild to moderate diffuse cerebral atrophy and moderate to advanced chronic small vessel ischemic changes are present. Patient received COVID first vaccine on 03/04/2020. Doubt this encephalopathy related to the vaccination. I will further increase Keppra to 750 g twice a day. Observe overnight. Resume Coumadin. No signs of intracranial infection at this time. No indication for LP. Discussed with patient's daughter in detail, spent 22 minutes on the phone. Time with Patient: Greater than 30
[2020-03-16] MEDS ORDERED: LORazepam 2 MG/ML INJ IV PRN (14:00)
--- NOTE | 2020-03-16 14:01 | P.HPIM ---
History of Present Illness H&P Date: 03/16/20 HISTORY OF PRESENT ILLNESS This is an 84-year-old male patient of Dr. Mckeon with past medical history of CAD, hypertension and hypertensive cardio vascular disease, paroxysmal atrial fibrillation anticoagulated with Coumadin, hyperlipidemia. Patient's daughter is at bedside and she gives history that he had walked over to her house and sat down on her couch and seemed to be talking fine and all of a sudden his words became garbled and he couldn't seem to understand her and became frustrated. He was also complaining of a headache. He was able to walk without difficulty, no weakness in extremities and no change in his smile. She drove him to the hospital for evaluation. Patient is able to answer questions and states that he had received a call from Dr. Izaguirre's office to change his appointment time and he couldn't write it down and that's when he walked down to his daughter's house two doors down. He also gives history that he received his first Covid vaccine on Saturday at the [facility]. He has had a little soreness in the area of the injection but denies any other symptoms. Patient is having intermittent episodes of garbled speech. He states he has had some weight loss. He has been living alone since his one year ago. He also has developed a jerking of his body which started yesterday and is intermittent as well. Daughter notices when he is in a deep sleep he does not have these tremors/tic. Patient complains of a little headache. He does give history of having therapy on his neck as directed by Dr. Watkins as he was having pain when he turned to the right side. Patient presented to [facility] emergency center for evaluation. Patient was afebrile, heart rate 102, blood pressure 172/112, pulse ox 100% on room air. WBC 6.5, hemoglobin 13.6. INR is 2.4. CMP normal. Troponin negative. Triglycerides 53, cholesterol 146, LDL 90, HDL 45. CAT scan of the brain reveals cerebral atrophy. 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 No acute abnormality. Echocardiogram reveals EF of greater than 55%, mild mitral regurgitation, mild tricuspid regurgitation. Aortic root is dilated at 3.[address] angiogram of the head and neck were both normal. Chest x-ray reveals mild interstitial infiltrates and subsegmental atelectasis at the lung bases. Patient admitted to the cardiac stepdown unit and consult with neurology. MRI of the brain, carotid duplex, EEG and urinalysis have all been ordered and pending. REVIEW OF SYSTEMS Constitutional: No fever, no chills, no night sweats. Reports weight loss. No weakness, fatigue or lethargy. No daytime sleepiness. EENT: Reports headache. No blurred vision or double vision, no loss of vision. No loss of Hearing, no ringing in the ears, no dizziness. No nasal drainage or congestion. No epistaxis. No sore throat. Lungs: No shortness of breath, cough, no sputum production. No wheezing. Cardiovascular: No chest pain, no lower extremity edema. No palpitations. No paroxysmal nocturnal dyspnea. No orthopnea. No lightheadedness or dizziness. No syncopal episodes. Abdominal: No abdominal pain. No nausea, vomiting. No diarrhea. No constipation. No bloody or tarry stools. No loss of appetite. Genitourinary: No dysuria, increased frequency, urgency. No urinary retention. Musculoskeletal: No myalgias. No muscle weakness, no gait dysfunction, no frequent falls. No back pain. No neck pain. Integumentary: No wounds, no lesions. No rash or pruritus. No unusual bruising. No change in hair or nails. Neurologic: Reports episodes of aphasia and episodes of garbled speech. No facial droop. Reports episodes of confusion. No head injury. Reports headache. No paralysis. No paresthesia. Psychiatric: No depression. No anxiety. No mood swings. Endocrine: No abnormal blood sugars. No weight change. No excessive sweating or thirst. No cold intolerance. SOCIAL HISTORY Patient was a smoker from [id number]. No marijuana, alcohol or illicit drug use. Patient lives alone and daughter lives 2 doors down. FAMILY HISTORY Father from a bowel obstruction at age of 69. Mother at age 75 from coronary artery disease and diabetes and blindness, CHF. Patient has 5 brothers. One of them has coronary artery disease with multiple stents 3 brothers one from throat cancer, one from leukemia and the third unsure of cause of . Patient has a total of 5 sisters. One has hypothyroidism, bradycardia and GERD. One from stomach cancer and one from unknown cause. PHYSICAL EXAMINATION Gen: This is an 84-year-old male. He appears to be sleeping but patient answers questions that are directed to his daughter. His speech is clear at the time of evaluation. HEENT: Head is atraumatic, normocephalic. Pupils equal, round. Sclerae is anicteric. No nuchal rigidity. NECK: Supple. No JVD. No lymphadenopathy. No thyromegaly. LUNGS: Clear to auscultation. No wheezes or rhonchi. No intercostal retractions. HEART: Regular rate and rhythm. 2/6 systoloic ejection murmur at the left sternal border. ABDOMEN: Soft. Bowel sounds are present. No masses. No tenderness. EXTREMITIES: No pedal edema. No calf tenderness. Straight leg lift test is negative. NEUROLOGICAL: Patient is awake, alert and oriented x3. Cranial nerves 2 through 12 are grossly intact. Muscle strength 4/5 in the upper and lower extremities bilaterally. Occasional jerking noted. ASSESSMENT AND PLAN 1. Intermittent episodes of metabolic encephalopathy of unclear etiology with hypertensive emergency and tremor possibly related to Cymbalta, rule out seizure disorder, rule out infectious source,family concern for meningitis. Consult with neurology. EEG, MRI of the brain, carotid duplex pending. Patient has been started on Keppra 500 mg IV every 12 hours. Consults with PT, OT, speech. Ativan IV as needed for possible seizure activity. 2. Hypertensive emergency. Continue antihypertensive medications. 3. Tremor/tics, extrapyramidal symptoms possibly related to Cymbalta. Cymbalta discontinued. 4. History of coronary artery disease. Continue aspirin 81 mg daily, Lipitor 10 mg daily. 5. Hypertension, hypertensive cardio vascular disease. Continue flecainide, verapamil. 6. Paroxysmal atrial fibrillation. Continue Coumadin, pharmacy dosing. C ontinue flecainide 100 mg twice daily, verapamil 40 mg twice daily. 7. Hyperlipidemia. Continue Lipitor. 8. Hypothyroidism. Continue levothyroxine 50 g daily. 9. Gastroesophageal reflux disease and GI prophylaxis. Continue Protonix. 10. Generalized anxiety disorder. Patient has been on Xanax or 0.5 mg oral every 8 hours as needed. Patient will be placed on lorazepam 0.5 mg every 6 ho urs as needed. 11. DVT prophylaxis. Coumadin. Patient will be admitted to the hospital for a minimum of 2 night stay. DISCHARGE PLAN To be determined. Therapies ordered. Impression and plan of care have been directed as dictated by the signing physician. Linda Dorado nurse practitioner acting as scribe for signing physician. Past Medical History Past Medical History: Atrial Fibrillation, Asthma, Coronary Artery Disease (CAD), Chest Pain / Angina, GERD/Reflux, Hyperlipidemia, Osteoarthritis (OA), Sleep Apnea/CPAP/BIPAP, Thyroid Disorder Additional Past Medical History / Comment(s): Afib RVR, hiatal hernia, narrow esophagus, dysphagia with certain foods, arthritis in multiple joints, NATE without device, hypothyroid, bilateral tinnitis, anemia, bronchitis, sinus problems at times. History of Any Multi-Drug Resistant Organisms: None Reported Past Surgical History: Adenoidectomy, Back Surgery, Heart Catheterization, Hernia Repair, Joint Replacement, Orthopedic Surgery, Tonsillectomy Additional Past Surgical History / Comment(s): 2006 coronary angioplasty-unable to deploy stent, 2011 cardiac cath, back fracture with repair, L shoulder rotat or cuff repair, bilateral carpal tunnel releases, bilateral knee arthroscopies, R knee patellar surgery, traumatic amputation L 3rd finger, cervical and thoracic pain procedures, EGD, colonoscopies/benign polyps, bilateral cataract removals Past Anesthesia/Blood Transfusion Reactions: Motion Sickness Additional Past Anesthesia/Blood Transfusion Reaction / Comment(s): Pt received blood in 2007 without reaction. Past Psychological History: Anxiety Additional Psychological History / Comment(s): Patient's daughter states that the patient lives 2 houses down from her. Drives himself to appointments, etc. Patient's daughter states that the patient has had some generalized anxiety and takes an antidepressant since his approximately 1 year ago. Smoking Status: Former smoker Past Alcohol Use History: None Reported Additional Past Alcohol Use History / Comment(s): Pt started smoking in 1949 and quit in 1974. Past Drug Use History: None Reported - Past Family History Father History Unknown: Yes Additional Family Medical History / Comment(s): Father of a bowel obstruction at the age of 69yrs. Mother History Unknown: Yes Family Medical History: Congestive Heart Failure (CHF), Coronary Artery Disease (CAD), Diabetes Mellitus Brother(s) History Unknown: Yes Family Medical History: Coronary Artery Disease (CAD) (He shouldn't had 5 brothers to still alive one of them with CAD and multiple stents placement in the other one CAD and he had 3 brothers passed one from throat cancer 1 from leukemia ended third one not sure the cause of .) Sister(s) History Unknown: Yes Family Medical History: Thyroid Disorder (Patient had 5 sisters 3 alive one with hypothyroidism bradycardia and GERD 1 is 93-year-old and the other one and sure of any health issues patient had a sister who from stomach cancer and the fifth 1 of unknown cause.) Daughter(s) History Unknown: Yes Family Medical History: Musculoskeletal Disorder (Patient has 2 daughters one of them is all right the other one with fibromyalgia and migraine headaches.) Son(s) History Unknown: Yes Family Medical History: Osteoarthritis (OA) (Patient has 2 sons one of them is a right the other one had a work accident ended up with osteoarthritis) Medications and Allergies Home Medications Medication Instructions Recorded Confirmed Type Aspirin EC [Ecotrin Low Dose] 81 mg PO DAILY@192909/23/13 03/15/20 History Levothyroxine Sodium [Synthroid] 50 mcg PO DAILY@79909/23/13 03/15/20 History Montelukast [Singulair] 10 mg PO DAILY@192909/23/13 03/15/20 History Omeprazole [PriLOSEC] 20 mg PO BID@08,192909/23/13 03/15/20 History Warfarin [Coumadin] 5 mg PO SUTUTHSA@192909/23/13 03/15/20 History Flecainide Acetate [Tambocor] 100 mg PO BID@08,192911/15/15 03/15/20 History Warfarin Sodium 7.5 mg PO MOWEFR@192911/15/15 03/15/20 History ALPRAZolam [Xanax] 0.5 mg PO Q8H PRN 03/15/20 03/15/20 History Atorvastatin Calcium [Lipitor] 10 mg PO DAILY@192903/15/20 03/15/20 History DULoxetine HCL [Cymbalta] 30 mg PO DAILY@119903/15/20 03/15/20 History DULoxetine HCL [Cymbalta] 60 mg PO DAILY@119903/15/20 03/15/20 History Fludrocortisone [Florinef] 0.1 mg PO DAILY@0800 03/15/20 03/15/20 History Verapamil [Isoptin] 40 mg PO BID@0800,1930 03/15/20 03/15/20 History Allergies Allergy/AdvReac Type Severity Reaction Status Date / Time clarithromycin [From Biaxin] Allergy Unknown Rash/Hives Verified 03/15/20 16:04 indomethacin [From Indocin] AdvReac Severe states Verified 03/15/20 16:04 "severe asthma attack indomethacin sodium AdvReac Severe states Verified 03/15/20 16:04 [From Indocin] "severe asthma attack" morphine AdvReac Unknown Hallucinati Verified 03/15/20 16:04 ons PERFUME AdvReac Dyspnea Uncoded 03/15/20 16:04 Physical Exam Vitals: Vital Signs Temp Pulse Pulse Resp BP BP BP 03/16/20 08:00 98.1 F 84 16 113/68 03/16/20 04:00 98.6 F 86 17 136/80 03/16/20 02:00 17 03/16/20 00:00 97.7 F 103 H 17 138/74 03/15/20 20:00 97.9 F 94 18 168/85 03/15/20 18:45 98.9 F 101 H 20 175/98 03/15/20 17:05 102 H 24 171/94 03/15/20 16:20 101 H 20 167/104 03/15/20 16:04 99.3 F 102 H 18 172/112 Pulse Ox 03/16/20 08:00 96 03/16/20 04:00 94 L 03/16/20 02:00 03/16/20 00:00 97 03/15/20 20:00 98 03/15/20 18:45 98 03/15/20 17:05 98 03/15/20 16:20 99 03/15/20 16:04 100 Intake and Output 03/15/20 03/16/20 03/16/20 22:59 06:59 14:59 Output Total 400 Balance -400 Output: Urine 400 Other: Voiding Method Toilet Toilet # Voids 1 # Bowel Movements 1 Weight 69.763 kg 73.5 kg Results CBC & Chem 7: 03/15/20 16:20 03/15/20 16:20 Labs: Abnormal Lab Results - Last 24 Hours (Table) 03/15/20 03/15/2003/16/21 Range/Units 16:20 16:20 06:54 RBC 4.01 L (4.30-5.90) m/uL PT 23.4 H 20.2 H (9.0-12.0) sec INR 2.4 H 2.1 H (<1.2)
--- NOTE | 2020-03-16 14:44 | MR ---
EXAMINATION TYPE: MR brain wo/w con DATE OF EXAM: 03/16/2020 COMPARISON: CT brain from yesterday. HISTORY: CVA. Acute onset neurologic deficit one day earlier. TECHNIQUE: Multiplanar, multisequence images of the brain and brainstem is performed without and with IV contras t, utilizing 7 mL intravenous Gadavist . FINDINGS: Exam suboptimal as the patient is unable to hold still. Diffusion weighted images demonstra te no evidence of a recent infarct or other diffusion abnormality. Mild to moderate ventricular and s ulcal prominence. Scattered foci of T2 hyperintensity are seen throughout the superficial deep and pe riventricular white matter. Approximately 60-80 scattered lesions. Midline structures demonstrate normal morphology. The craniocervical junction appears within normal limits. Post contrast images demonstrate no abnormal enhancement. The dural venous sinuses appear pa tent. The visualized sinuses are clear and the globes are intact. IMPRESSION: No MRI evidence for a recent infarct. [id number]-[id number] diffuse cerebral atrophy and moder ate to advanced chronic small vessel ischemic changes are present.
--- NOTE | 2020-03-16 14:48 | US ---
EXAMINATION TYPE: US carotid duplex BILAT DATE OF EXAM: 03/16/2020 COMPARISON: CLINICAL HISTORY: tia. Poor historian. Limited exam due to patient moaning and would jump spontaneou sly EXAM MEASUREMENTS: RIGHT: Peak Systolic Velocity (PSV) cm/sec ----- Right CCA: 68.5 ----- Right ICA: 63.6 ----- Right ECA: 106.4 ICA/CCA ratio: 0.9 RIGHT: End Diastole cm/sec ----- Right CCA: 11.5 ----- Right ICA: 18.6 ----- Right ECA: 106.4 LEFT: Peak Systolic Velocity (PSV) cm/sec ----- Left CCA: 80.5 ----- Left ICA: 87.2 ----- Left ECA: 163.4 ICA/CCA ratio: 0.8 LEFT: End Diastole cm/sec ----- Left CCA: 17.1 ----- Left ICA: 16.7 ----- Left ECA: 9.7 VERTEBRALS (direction of flow): Right Vertebral: Antegrade Left Vertebral: Antegrade Rhythm: Normal No wall thickening. Elevated left ECA velocity. No significant stenosis. Small amount of plaque in bilateral bulbs. IMPRESSION: 1. Atheromatous plaquing without significant flow-limiting stenosis based on velocities. Criteria for Assigning % of Stenosis / Diameter reduction (Estimation based on the indirect measurements of the internal carotid artery velocities (ICA PSV). 1. Normal (no stenosis)=ICA PSV < 125 cm/s: ratio < 2.0: ICA EDV<40 cm/s. 2. Less than 50% stenosis=ICA PSV < 125 cm/s: ratio < 2.0: ICA EDV<40 cm/s. 3. 50 to 69% stenosis=ICA PSV of 125 to 230 cm/s: ration 2.0 ? 4.0: ICA EDV 40-100 cm/s. 4. Greater than 70% stenosis to near occlusion= ICA PSV > 230 cm/s: ratio > 4.0: ICA EDV > 100 cm/s. 5. Near occlusion= ICA PSV velocities may be low or undetectable: variable ratio and ICA EDV. 6. Total occlusion=unable to detect flow.
[2020-03-16 17:17] LABS: Appearance,Urine Clear (Clear); Bilirubin,Urine Negative (Negative); Blood,Urine Negative (Negative); Color,Urine Yellow; Glucose,Urine (UA) Negative (Negative); Ketones,Urine 1+ (Negative); Leukocyte Esterase,Urine Negative (Negative); Nitrite,Urine Negative (Negative); PH, Urine 5.5 (5.0-8.0); Protein,Urine Negative (Negative); Specific Gravity,Urine 1.027 (1.001-1.035); Urobilinogen,Urine <2.0 mg/dL (<2.0)
[2020-03-16] MEDS ORDERED: WARFARIN 7.5 MG TAB PO SCH (19:30)
[2020-03-16] MEDS: ASPIRIN 81 MG PO SCH (20:27)
[2020-03-16] MEDS: MONTELUKAST 10 MG TAB PO SCH (20:27)
[2020-03-16] MEDS: ATORVASTATIN 10 MG TAB PO SCH (20:27)
[2020-03-16] MEDS: levETIRAcetam IV 750 MG in SODIUM CHLORIDE 0.9% 100 ML IVPB SCH (20:57)
[2020-03-17] MEDS: PANTOPRAZOLE 40 MG TABLET PO SCH (06:41)
[2020-03-17 08:03] LABS: Prothrombin Time 19.9 sec (9.0-12.0)
[2020-03-17] MEDS: VERAPAMIL 40 MG TAB PO SCH ×2 (08:29→21:10)
[2020-03-17] MEDS: levETIRAcetam IV 750 MG in SODIUM CHLORIDE 0.9% 100 ML IVPB SCH ×2 (08:29→21:28)
[2020-03-17] MEDS: FLUDROCORTISONE 0.1 MG TAB PO SCH (08:29)
[2020-03-17] MEDS: FLECAINIDE 50 MG TAB PO SCH ×2 (08:29→21:10)
[2020-03-17] MEDS: LEVOTHYROXINE 50 MCG TAB PO SCH (08:29)
--- NOTE | 2020-03-17 11:26 | EEG ---
ELECTROENCEPHALOGRAM REPORT DATE OF SERVICE: 03/16/2020 PREAMBLE: This is an 84-year-old male who presented with episode of expressive aphasia, but also has been having intermittent jerks of the body, rule out any seizure activity. EEG FINDINGS: This is a 21 channel routine EEG recording patient utilizing 10/20 international system with referential and bipolar montages. The background consists of well-developed, moderately well regulated 8 hertz alpha mixed with some theta activity. Frontal intermittent arrhythmic delta activity was seen. The patient was asleep during most of the study with the presence of some sleep spindles. No definitive focal or generalized epileptiform activity was seen. The patient did have some movements noted by the mold tooling technician with moaning, during which there was no epileptiform activity seen. IMPRESSION: This is an abnormal EEG due to mild background slowing, and presence of frontal intermittent rhythmic delta activity. This is suggestive of generalized cerebral dysfunction as can be seen with toxic metabolic encephalopathy. Clinical correlation is recommended. No definitive epileptiform activity was seen. MMODL / IJN: [id number] /
--- NOTE | 2020-03-17 12:28 | P.DS ---
Providers Date of admission: 03/15/20 18:15 Expected date of discharge: 03/18/20 Attending physician: Joss Tang Consults: 03/15/20 18:16 Consult Physician Urgent Consulting Provider: Gisell Esquivel Consult Reason/Comments: acute expressive aphasia, suspected cva Do you want consulting provider notified?: Yes Primary care physician: [facility] Course: HISTORY OF PRESENT ILLNESS This is an 84-year-old male patient of Dr. Mckeon with past medical history of CAD, hypertension and hypertensive cardio vascular disease, paroxysmal atrial fibrillation anticoagulated with Coumadin, hyperlipidemia. Patient's daughter is at bedside and she gives history that he had walked over to her house and sat down on her couch and seemed to be talking fine and all of a sudden his words became garbled and he couldn't seem to understand her and became frustrated. He was also complaining of a headache. He was able to walk without difficulty, no weakness in extremities and no change in his smile. She drove him to the hospital for evaluation. Patient is able to answer questions and states that he had received a call from Dr. Izaguirre's office to change his appointment time and he couldn't write it down and that's when he walked down to his daughter's house two doors down. He also gives history that he received his first Covid vaccine on Saturday at the [facility]. He has had a little soreness in the area of the injection but denies any other symptoms. Patient is having intermittent episodes of garbled speech. He states he has had some weight loss. He has been living alone since his one year ago. He also has developed a jerking of his body which started yesterday and is intermittent as well. Daughter notices when he is in a deep sleep he does not have these tremors/tic. Patient complains of a little headache. He does give history of having therapy on his neck as directed by Dr. Watkins as he was having pain when he turned to the right side. Patient presented to [facility] emergency center for evaluation. Patient was afebrile, heart rate 102, blood pressure 172/112, pulse ox 100% on room air. WBC 6.5, hemoglobin 13.6. INR is 2.4. CMP normal. Troponin negative. Triglycerides 53, cholesterol 146, LDL 90, HDL 45. CAT scan of the brain reveals cerebral atrophy. 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 No acute abnormality. Echocardiogram reveals EF of greater than 55%, mild mitral regurgitation, mild tricuspid regurgitation. Aortic root is dilated at 3.[address] angiogram of the head and neck were both normal. Chest x-ray reveals mild interstitial infiltrates and subsegmental atelectasis at the lung bases. Patient admitted to the cardiac stepdown unit and consult with neurology. MRI of the brain, carotid duplex, EEG and urinalysis have all been ordered and pending. 03/17: Patient is awake, alert and oriented 3. Mental status is at baseline. He continues to have jerking movements. EEG revealed mild background slowing and presence of frontal intermittent rhythmic delta activity suggestive of generalized cerebral dysfunction seen in toxic metabolic encephalopathy. No definitive epileptiform activity. MRI of the brain revealed no evidence of recent infarct. Mild to moderate diffuse cerebral atrophy and moderate to advanced chronic small vessel ischemic change. Carotid ultrasound revealed plaque without significant flow limiting stenosis. Urinalysis is negative for infection. Patient's been afebrile, heart rate 69, blood pressure 103/60, pulse ox 97% on room air. INR 2.0. Therapies have recommended home with homecare. Speech therapy found no abnormalities requiring skilled services. 03/18: Dr. Esquivel wished to monitor the patient overnight. He did start Klonopin yesterday and resume patient on Cymbalta at the 600 mg daily dose and also added vitamin B12. Patient is seen this morning resting in bed. Jerking motions seem to have resolved. Patient has been afebrile, heart rate 67, blood pressure 158, pulse ox 93-97% on room air. INR 2.2. Patient will be discharged home today in stable condition. Contact the patient's daughter and provided date via phone. ASSESSMENT AND PLAN 1. Intermittent episodes of metabolic encephalopathy , possible TIA 2. Hypertensive emergency. 3. Tremor/tics, possible Eliecer clonus versus anxiety related, exact cause uncertain. Patient started on Klonopin. 4. History of coronary artery disease. 5. Hypertension, hypertensive cardio vascular disease. 6. Paroxysmal atrial fibrillation. 7. Hyperlipidemia. 8. Hypothyroidism. 9. Gastroesophageal reflux disease. 10. Generalized anxiety disorder. DISCHARGE PLAN Home with [facility]. Impression and plan of care have been directed as dictated by the signing physician. Linda Convery nurse practitioner acting as scribe for signing physician. Patient Condition at Discharge: Good Plan - Discharge Summary Discharge Rx Participant: Yes New Discharge Prescriptions: New clonazePAM [KlonoPIN] 0.5 mg PO BID #60 tab Multivitamin [Multivitamins Adult Gummies] 1 each PO DAILY #30 tablet Continue Montelukast [Singulair] 10 mg PO DAILY@1929 Warfarin [Coumadin] 5 mg PO SUTUTHSA@1929 Aspirin EC [Ecotrin Low Dose] 81 mg PO DAILY@1929 Omeprazole [PriLOSEC] 20 mg PO BID@08,1929 Levothyroxine Sodium [Synthroid] 50 mcg PO DAILY@799 Flecainide Acetate [Tambocor] 100 mg PO BID@799,1929 Warfarin Sodium 7.5 mg PO MOWEFR@1929 Verapamil [Isoptin] 40 mg PO BID@799,1929 Fludrocortisone [Florinef] 0.1 mg PO DAILY@799 DULoxetine HCL [Cymbalta] 60 mg PO DAILY@1199 Atorvastatin Calcium [Lipitor] 10 mg PO DAILY@1929 Discontinued DULoxetine HCL [Cymbalta] 30 mg PO DAILY@1199 ALPRAZolam [Xanax] 0.5 mg PO Q8H PRN PRN Reason: Anxiety Discharge Medication List Aspirin EC [Ecotrin Low Dose] 81 mg PO DAILY@192909/23/13 [History] Levothyroxine Sodium [Synthroid] 50 mcg PO DAILY@0809/23/13 [History] Montelukast [Singulair] 10 mg PO DAILY@192909/23/13 [History] Omeprazole [PriLOSEC] 20 mg PO BID@08,192909/23/13 [History] Warfarin [Coumadin] 5 mg PO SUTUTHSA@192909/23/13 [History] Flecainide Acetate [Tambocor] 100 mg PO BID@799,192911/15/15 [History] Warfarin Sodium 7.5 mg PO MOWEFR@192911/15/15 [History] Atorvastatin Calcium [Lipitor] 10 mg PO DAILY@192903/15/20 [History] DULoxetine HCL [Cymbalta] 60 mg PO DAILY@1200 03/15/20 [History] Fludrocortisone [Florinef] 0.1 mg PO DAILY@0800 03/15/20 [History] Verapamil [Isoptin] 40 mg PO BID@0800,1930 03/15/20 [History] Multivitamin [Multivitamins Adult Gummies] 1 each PO DAILY #30 tablet 03/18/20 [Rx] clonazePAM [KlonoPIN] 0.5 mg PO BID #60 tab 03/18/20 [Rx] Follow up Appointment(s)/Referral(s): [facility], [NON-STAFF] - Mark Anthony Mckeon DO [Primary Care Provider] - 1 Week Rolando Watkins DO [STAFF PHYSICIAN] - 1 Week Discharge Disposition: HOME WITH HOME HEALTH SERVICES
[2020-03-17 15:12] LABS: Folate, Serum 14.1 ng/mL
[2020-03-17] MEDS: ACETAMINOPHEN TAB 325 MG TAB PO PRN (15:36)
[2020-03-17] MEDS: clonazePAM 0.5 MG TAB PO SCH ×2 (15:37→21:10)
[2020-03-17] MEDS ORDERED: WARFARIN 5 MG TAB PO SCH (19:30)
--- NOTE | 2020-03-17 21:05 | P.PN ---
Subjective Progress Note Date: 03/17/20 Patient was seen for a follow-up. Patient's daughter Vania was also present today. Patient's mentation has much improved, but he continues to have arhythmic jerks of the body, arms or legs. At time it appears somewhat functional. Patient appears to be quite emotional, gets tearful about talking about his , who last year. He does have anxiety for which patient is on Cymbalta. Patient's daughter believes that although mentation is much improved but he still sometimes feels confused. His shoulder is hurting, which always used to hurt but is worse with these jerks. He is not vocalizing with these jerks. Telemetry monitoring showing sinus rhythm in the 80s and 90s. No atrial f ibrillation. Objective - Vital Signs Vital signs: Vital Signs Temp 97.8 F 03/17/20 16:27 Pulse 66 03/17/20 16:27 Resp 20 03/17/20 16:27 BP 96/54 03/17/20 16:27 Pulse Ox 97 03/17/20 16:27 Intake & Output 03/17/20 03/17/20 03/18/20 06:59 18:59 06:59 Intake Total 1440 Output Total 600 200 Balance -600 1240 Weight 72.6 kg Intake: Oral 1440 Output: Urine 600 200 Other: Voiding Method Toilet # Voids 1 # Bowel Movements 1 - Exam Patient's mental status, speech and language functions appears normal. Patient is depressed, emotional, cries frequently. Cranial nerves are normal. Muscle strength is normal. No ataxia. - Labs CBC & Chem 7: 03/15/20 16:20 03/15/20 16:20 Labs: Abnormal Lab Results - Last 24 Hours (Table) 03/17/20 Range/Units 07:04 PT 19.9 H (9.0-12.0) sec INR 2.0 H (<1.2) Assessment and Plan Assessment: * 84-year-old male with episode of expressive aphasia, which now seems to have resolved. Patient's examination is nonfocal. Possible TIA. * Intermittent transient brief episodes of body jerking (almost like shivers), followed by moaning. There is no associated alteration of mentation, therefore seizures unlikely. Possible myoclonus versus anxiety related. Exact cause is uncertain. Patient received first dose of Covid vaccination on 03/04/2020. Doubt symptoms would be related to vaccination as symptoms occurred 11 days after the vaccination. * Atrial fibrillation on anticoagulation with Coumadin. INR is therapeutic. * Coronary artery disease Plan: * Patient's symptoms became worse, a few weeks after the dose of Cymbalta was increased to 90 mg. We will decrease dose of Cymbalta back to 60 mg. * EEG revealed mild to moderate background slowing, with frontal intermittent rhythmic delta activity, suggestive of metabolic encephalopathy. No definitive epileptiform activity was seen. Patient's jerks have improved with Keppra 750 mg twice a day. We will continue the dose. However he continues to have jerks. We will now start Klonopin 0.5 mg twice a day. It will help with anxiety as well. * CTA head and neck negative for any stenosis. * 2-D echo showed EF greater than 55%. Right ventricle is mildly enlarged. 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 Today INR is 2.0. * Continue Lipitor 10 mg. * B12 low 272, folate 14.1, TSH normal 1.57. Hemoglobin A1c was 5.7 06/26/2019. We will start B12 replacement. * MRI of the brain was performed, which revealed no evidence of acute infarct. Mild to moderate diffuse cerebral atrophy and moderate to advanced chronic small vessel ischemic changes are present. * Observe overnight. Discussed with patient's daughter in detail.
[2020-03-17] MEDS: ATORVASTATIN 10 MG TAB PO SCH (21:10)
[2020-03-17] MEDS: ASPIRIN 81 MG PO SCH (21:10)
[2020-03-17] MEDS: MONTELUKAST 10 MG TAB PO SCH (21:10)
[2020-03-17] MEDS: CYANOCOBALAMIN 1,000 MCG/ML 1 ML VIAL IM SCH (23:41)
[2020-03-18 06:26] LABS: INR 2.2 (<1.2); Prothrombin Time 21.2 sec (9.0-12.0)
[2020-03-18] MEDS: PANTOPRAZOLE 40 MG TABLET PO SCH (06:58)
[2020-03-18] MEDS: LEVOTHYROXINE 50 MCG TAB PO SCH (08:12)
[2020-03-18] MEDS: clonazePAM 0.5 MG TAB PO SCH (08:12)
[2020-03-18] MEDS: VERAPAMIL 40 MG TAB PO SCH (08:12)
[2020-03-18] MEDS: FLUDROCORTISONE 0.1 MG TAB PO SCH (08:12)
[2020-03-18] MEDS: FLECAINIDE 50 MG TAB PO SCH (08:12)
[2020-03-18] MEDS: CYANOCOBALAMIN 1,000 MCG/ML 1 ML VIAL IM SCH (08:13)
[2020-03-18] MEDS ORDERED: DULoxetine HCL 60 MG CAPSULE.DR PO SCH (09:00)
[2020-03-18 09:26] VITALS: RESP 20
--- NOTE | 2020-03-18 10:33 | P.PN ---
Subjective Progress Note Date: 03/17/20 HISTORY OF PRESENT ILLNESS This is an 84-year-old male patient of Dr. Mckeon with past medical history of CAD, hypertension and hypertensive cardio vascular disease, p aroxysmal atrial fibrillation anticoagulated with Coumadin, hyperlipidemia. Patient's daughter is at bedside and she gives history that he had walked over to her house and sat down on her couch and seemed to be talking fine and all of a sudden his words became garbled and he couldn't seem to understand her and became frustrated. He was also complaining of a headache. He was able to walk without difficulty, no weakness in extremities and no change in his smile. She drove him to the hospital for evaluation. Patient is able to answer questions and states that he had received a call from Dr. Izaguirre's office to change his appointment time and he couldn't write it down and that's when he walked down to his daughter's house two doors down. He also gives history that he received his first Covid vaccine on Saturday at the [facility]. He has had a little soreness in the area of the injection but denies any other symptoms. Patient is having intermittent episodes of garbled speech. He states he has had some weight loss. He has been living alone since his one year ago. He also has developed a jerking of his body which started yesterday and is intermittent as well. Daughter notices when he is in a deep sleep he does not have these tremors/tic. Patient complains of a little headache. He does give history of having therapy on his neck as directed by Dr. Watkins as he was having pain when he turned to the right side. Patient presented to [facility] emergency center for evaluation. Patient was afebrile, heart rate 102, blood pressure 172/112, pulse ox 100% on room air. WBC 6.5, hemoglobin 13.6. INR is 2.4. CMP normal. Troponin negative. Triglycerides 53, cholesterol 146, LDL 90, HDL 45. CAT scan of the brain reveals cerebral atrophy. 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 No acute abnormality. Echocardiogram reveals EF of greater than 55%, mild mitral regurgitation, mild tricuspid regurgitation. Aortic root is dilated at 3.[address] angiogram of the head and neck were both normal. Chest x-ray reveals mild interstitial infiltrates and subsegmental atelectasis at the lung bases. Patient admitted to the cardiac stepdown unit and consult with neurology. MRI of the brain, carotid duplex, EEG and urinalysis have all been ordered and pending. 03/17: Patient is awake, alert and oriented 3. Mental status is at baseline. He continues to have jerking movements. EEG revealed mild background slowing and presence of frontal intermittent rhythmic delta activity suggestive of generalized cerebral dysfunction seen in toxic metabolic encephalopathy. No definitive epileptiform activity. MRI of the brain revealed no evidence of recent infarct. Mild to moderate diffuse cerebral atrophy and moderate to advanced chronic small vessel ischemic change. Carotid ultrasound revealed plaque without significant flow limiting stenosis. Urinalysis is negative for infection. Patient's been afebrile, heart rate 69, blood pressure 103/60, pulse ox 97% on room air. INR 2.0. Therapies have recommended home with homecare. Speech therapy found no abnormalities requiring skilled services. REVIEW OF SYSTEMS Constitutional: No fever, no chills, no night sweats. Reports weight loss. No weakness, fatigue or lethargy. No daytime sleepiness. EENT: Reports headache. No blurred vision or double vision, no loss of vision. No loss of Hearing, no ringing in the ears, no dizziness. No nasal drainage or congestion. No epistaxis. No sore throat. Lungs: No shortness of breath, cough, no sputum production. No wheezing. Cardiovascular: No chest pain, no lower extremity edema. No palpitations. No p aroxysmal nocturnal dyspnea. No orthopnea. No lightheadedness or dizziness. No syncopal episodes. Abdominal: No abdominal pain. No nausea, vomiting. No diarrhea. No constipation. No bloody or tarry stools. No loss of appetite. Genitourinary: No dysuria, increased frequency, urgency. No urinary retention. Musculoskeletal: No myalgias. No muscle weakness, no gait dysfunction, no frequent falls. No back pain. No neck pain. Integumentary: No wounds, no lesions. No rash or pruritus. No unusual bruising. No change in hair or nails. Neurologic: Reports episodes of aphasia and episodes of garbled speech that resolved. No facial droop. Reports episodes of confusion. No head injury. R eports headache. No paralysis. No paresthesia. Psychiatric: No depression. No anxiety. No mood swings. Endocrine: No abnormal blood sugars. No weight change. No excessive sweating or thirst. No cold intolerance. PHYSICAL EXAMINATION Gen: This is an 84-year-old male. Patient is resting in bed and appears to be comfortable and in no acute distress.. HEENT: Head is atraumatic, normocephalic. Pupils equal, round. Sclerae is anicteric. No nuchal rigidity. NECK: Supple. No JVD. No lymphadenopathy. No thyromegaly. LUNGS: Clear to auscultation. No wheezes or rhonchi. No intercostal retractions. HEART: Regular rate and rhythm. 2/6 systoloic ejection murmur at the left sternal border. ABDOMEN: Soft. Bowel sounds are present. No masses. No tenderness. EXTREMITIES: No pedal edema. No calf tenderness. Straight leg lift test is negative. NEUROLOGICAL: Patient is awake, alert and oriented x3. Cranial nerves 2 through 12 are grossly intact. Muscle strength 4/5 in the upper and lower extremities bilaterally. Occasional jerking noted. ASSESSMENT AND PLAN 1. Intermittent episodes of metabolic encephalopathy of unclear etiology with hypertensive emergency and tremor possibly related to Cymbalta, rule out seizure disorder, rule out infectious source,family concern for meningitis. Consult with neurology. EEG, MRI of the brain, carotid duplex pending. Patient has been started on Keppra Masha 750 mg IV every 12 hours and neurology. Consults with PT, OT, speech. Ativan IV as needed for possible seizure activity. 2. Hypertensive emergency. Continue antihypertensive medications. 3. Tremor/tics, extrapyramidal symptoms possibly related to Cymbalta. Cymbalta discontinued. 4. History of coronary artery disease. Continue aspirin 81 mg daily, Lipitor 10 mg daily. 5. Hypertension, hypertensive cardio vascular disease. Continue flecainide, verapamil. 6. Paroxysmal atrial fibrillation. Continue Coumadin, pharmacy dosing. Continue flecainide 100 mg twice daily, verapamil 40 mg twice daily. 7. Hyperlipidemia. Continue Lipitor. 8. Hypothyroidism. Continue levothyroxine 50 g daily. 9. Gastroesophageal reflux disease and GI prophylaxis. Continue Protonix. 10. Generalized anxiety disorder. Patient has been on Xanax 0.5 mg oral every 8 hours as needed. Patient will be placed on lorazepam 0.5 mg every 6 hours as needed. 11. DVT prophylaxis. Coumadin. Patient will be admitted to the hospital for a minimum of 2 night stay. DISCHARGE PLAN Home with [facility] Impression and plan of care have been directed as dictated by the signing physician. Linda Dorado nurse practitioner acting as scribe for signing physician. Objective - Vital Signs Vital signs: Vital Signs Temp 97.8 F 03/17/20 03:24 Pulse 92 03/17/20 03:24 Resp 18 03/17/20 03:24 BP 102/60 03/17/20 03:24 Pulse Ox 97 03/17/20 03:24 Intake & Output 03/16/20 03/17/20 03/17/20 18:59 06:59 18:59 Intake Total 0 Output Total 600 Balance 0 -600 Weight 72.6 kg Intake: Blood Product 0 Output: Urine 600 Other: Voiding Method Toilet Toilet # Bowel Movements 1 - Labs CBC & Chem 7: 03/15/20 16:20 03/15/20 16:20 Labs: Abnormal Lab Results - Last 24 Hours (Table) 03/16/20 03/17/20 Range/Units 16:29 07:04 PT 19.9 H (9.0-12.0) sec INR 2.0 H (<1.2) Urine Ketones 1+ H (Negative)
--- NOTE | 2020-03-18 11:52 | P.PN ---
Subjective Progress Note Date: 03/18/20 03/18/2020: Patient was seen for a follow-up. Patient is sitting in a recliner, very comfortable, much more pleasant, not jerking or twitching anymore. Offers no new complaints. Still concerned about what happened when he was having difficulty speaking. Suspect possible TIA. Telemetry monitoring showing sinus rhythm in 60s and 70s. 03/17/2020: Patient was seen for a follow-up. Patient's daughter Vanai was also present today. Patient's mentation has much improved, but he continues to have arhythmic jerks of the body, arms or legs. At time it appears somewhat functional. Patient appears to be quite emotional, gets tearful about talking about his , who last year. He does have anxiety for which patient is on Cymbalta. Patient's daughter believes that although mentation is much improved but he still sometimes feels confused. His shoulder is hurting, which always used to hurt but is worse with these jerks. He is not vocalizing with these jerks. Telemetry monitoring showing sinus rhythm in the 80s and 90s. No atrial fibrillation. Objective - Vital Signs Vital signs: Vital Signs Temp 97.4 F L 03/18/20 08:00 Pulse 67 03/18/20 08:00 Resp 20 03/18/20 08:00 BP 105/58 03/18/20 08:00 Pulse Ox 93 L 03/18/20 08:00 Intake & Output 03/17/20 03/18/20 03/18/20 18:59 06:59 18:59 Intake Total 1440 240 Output Total 200 300 Balance 1240 -300 240 Weight 66.9 kg Intake: Oral 1440 240 Output: Urine 200 300 Other: Voiding Method Toilet # Voids 1 2 # Bowel Movements 1 - Exam Patient's mental status, speech and language functions appears normal. Patient is more animated today, emotionally much better. Cranial nerves are normal. Muscle strength is normal. No ataxia. - Labs CBC & Chem 7: 03/15/20 16:20 03/15/20 16:20 Labs: Abnormal Lab Results - Last 24 Hours (Table) 03/18/20 Range/Units 05:38 PT 21.2 H (9.0-12.0) sec INR 2.2 H (<1.2) Assessment and Plan Assessment: * 84-year-old male with episode of expressive aphasia, which now seems to have resolved. Patient's examination is nonfocal. Possible TIA. * Intermittent transient brief episodes of body jerking (almost like shivers), followed by moaning. There is no associated alteration of mentation, therefore seizures unlikely. Possible myoclonus versus anxiety related. Exact cause is uncertain. Patient received first dose of Covid vaccination on 03/04/2020. Doubt symptoms would be related to vaccination as symptoms occurred 11 days after the vaccination. * Atrial fibrillation on anticoagulation with Coumadin. INR is therapeutic. * Coronary artery disease Plan: * Patient's jerks/myoclonus appears to have much improved/resolved. Continue Klonopin 0.5 mg twice a day. Continue Keppra 750 mg twice a day. Possibly could slowly wean off Keppra as outpatient. * Continue lower dose of Cymbalta 60 mg. (patient's symptoms started a few weeks after increasing the dose of Cymbalta to 90 mg) * EEG revealed mild to moderate background slowing, with frontal intermittent rhythmic delta activity, suggestive of metabolic encephalopathy. No definitive epileptiform activity was seen. * CTA head and neck negative for any stenosis. * 2-D echo showed EF greater than 55%. Right ventricle is mildly enlarged. 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 Today INR is 2.0. * Continue Lipitor 10 mg. * B12 low 272, folate 14.1, TSH normal 1.57. Hemoglobin A1c was 5.7 06/26/2019. On B12 replacement. * MRI of the brain was performed, which revealed no evidence of acute infarct. Mild to moderate diffuse cerebral atrophy and moderate to advanced chronic small vessel ischemic changes are present. * Neurologically clear for discharge. Suggest patient follow up with neurologist locally about 1-3 weeks after discharge.
[2020-03-18 12:01] VITALS: BP 112/54; PULSE 62; TEMP 98
== END 2020-03-18 13:25 | disposition home health service (06) | DRG 69 ==
LOC: EC 16:00 → 3SCARD 18:15
PROVIDERS: ADMIT Internal Medicine Geriatric Medicine; ATTEND Internal Medicine Geriatric Medicine
DX: G45.9 Transient cerebral ischemic attack, unspecified (principal); G93.41 Metabolic encephalopathy; I16.1 Hypertensive emergency; R47.01 Aphasia; F41.1 Generalized anxiety disorder; E78.5 Hyperlipidemia, unspecified; E03.9 Hypothyroidism, unspecified; I10 Essential (primary) hypertension; I25.10 Atherosclerotic heart disease of native coronary artery without angina pectoris; I44.0 Atrioventricular block, first degree; I48.0 Paroxysmal atrial fibrillation; J45.909 Unspecified asthma, uncomplicated; M19.90 Unspecified osteoarthritis, unspecified site; K21.9 Gastro-esophageal reflux disease without esophagitis; Z79.52 Long term (current) use of systemic steroids; Z79.82 Long term (current) use of aspirin; Z79.01 Long term (current) use of anticoagulants; Z79.890 Hormone replacement therapy; Z79.899 Other long term (current) drug therapy; Z80.0 Family history of malignant neoplasm of digestive organs; Z80.8 Family history of malignant neoplasm of other organs or systems; Z82.1 Family history of blindness and visual loss; Z80.6 Family history of leukemia; Z82.49 Family history of ischemic heart disease and other diseases of the circulatory system; Z83.3 Family history of diabetes mellitus; Z86.73 Personal history of transient ischemic attack (TIA), and cerebral infarction without residual deficits; Z87.891 Personal history of nicotine dependence; Z98.61 Coronary angioplasty status; Z88.1 Allergy status to other antibiotic agents; Z88.5 Allergy status to narcotic agent; Z88.8 Allergy status to other drugs, medicaments and biological substances; Z90.89 Acquired absence of other organs
CPT/HCPCS: 36415; 70450; 70496; 70498; 70553; 71045; 80053; 80061; 81003; 82607; 82746; 84443; 84484; 85025; 85610; 85730; 93005; 93306; 93880; 95819; 96374; 99285

== ENCOUNTER 2020-11-13 21:12 | Emergency (ER) | payer MEDICARE, OTHER ==
[2020-11-13 21:31] VITALS: RESP 18
[2020-11-13] MEDS ORDERED: LIDOCAINE 1% INJ 10MG/ML (20 ML MDV) SQ ONE (21:44)
[2020-11-13] MEDS ORDERED: OXYMETAZOLINE 0.05% NASL SPRAY 1 SPRAY BOTTLE NASAL STA (21:44)
[2020-11-13] MEDS ORDERED: LIDOCAINE/EPINEPHR/TETRACAINE 5 ML BOTTLE TOPICAL ONE ×2 (22:33→22:34)
--- NOTE | 2020-11-13 22:43 | CT ---
EXAMINATION TYPE: CT brain cspine wo con DATE OF EXAM: 11/13/2020 COMPARISON: CT brain 03/15/2020 HISTORY: fall CT DLP: combined DLP 1181.4 mGycm Automated exposure control for dose reduction was used. There is cerebral cortical atrophy. There is no mass effect nor midline shift. There is no sign of in tracranial hemorrhage. Calvarium is intact. There is 5 mm lacunar infarct in the right caudate nucleu s. There is normal aeration of the mastoid air cells. Cervical vertebra have normal alignment. There is degenerative disc space narrowing at C4-5 C5-6 and C6-7 with spurring of the endplates. Facet joints are intact. There is no compression fracture. There is debris in the nasopharynx. There is fluid level in the right maxillary sinus. There is debri s in the posterior nasopharynx. IMPRESSION: Cerebral atrophy. No acute intracranial abnormality. Small left frontal scalp soft tissue swelling. Spondylotic changes in the cervical spine. No fracture. Brain not changed compared to old exam.
--- NOTE | 2020-11-13 22:56 | CT ---
EXAMINATION TYPE: CT facial bones wo con DATE OF EXAM: 11/13/2020 COMPARISON: None HISTORY: fall CT DLP: combined DLP 1181.4 mGycm Automated exposure control for dose reduction was used. Images obtained from the bottom of the mandible to the top of the frontal sinuses with no contrast. The mandibular ring is intact. Exam limited slightly by motion. Temporomandibular joints are intact. Zygomatic arches are intact. There is fracture of the nasal bone which is deviated slightly to the ri ght side. There is opacification of most of the right maxillary sinus with mixed attenuation. There is mixed de nsity also in the nasopharynx on the right side. I do not see evidence for a blowout fracture. The orbital margins are intact. There is no retro-orbital mass. There is mucosal thickening in the ri ght side of the sphenoid sinus. IMPRESSION: Nasal bone fracture. There is debris in the nasopharynx and right maxillary sinus and right side sphe noid sinus consistent with blood clot. No evidence of orbital blowout fracture.
--- NOTE | 2020-11-13 23:00 | ED ---
General Adult HPI - General Chief complaint: Fall Stated complaint: Nosebleed on blood thinners Time Seen by Provider: 11/13/20 21:35 Source: patient Mode of arrival: ambulatory Limitations: no limitations - History of Present Illness Initial comments: 85-year-old male with a complicated past medical history presents to the emergency room for all. Patient does take Xarelto for atrial fibrillation. Patient was walking outside and tripped on branches. Patient fell and hit his head and face on the ground. No loss of consciousness. Patient denies neck pain. Denies any other injuries.Patient has no other complaints at this time including shortness of breath, chest pain, abdominal pain, nausea or vomiting, headache, or visual changes. - Related Data Home Medications Medication Instructions Recorded Confirmed Aspirin EC [Ecotrin Low Dose] 81 mg PO DAILY@192909/23/13 03/15/20 Levothyroxine Sodium [Synthroid] 50 mcg PO DAILY@0809/23/13 03/15/20 Montelukast [Singulair] 10 mg PO DAILY@192909/23/13 03/15/20 Omeprazole [PriLOSEC] 20 mg PO BID@0800,192909/23/13 03/15/20 Warfarin [Coumadin] 5 mg PO SUTUTHSA@192909/23/13 03/15/20 Flecainide Acetate [Tambocor] 100 mg PO BID@0800,192911/15/15 03/15/20 Warfarin Sodium 7.5 mg PO MOWEFR@192911/15/15 03/15/20 Atorvastatin Calcium [Lipitor] 10 mg PO DAILY@192903/15/20 03/15/20 DULoxetine HCL [Cymbalta] 60 mg PO DAILY@1200 03/15/20 03/15/20 Fludrocortisone [Florinef] 0.1 mg PO DAILY@0800 03/15/20 03/15/20 Verapamil [Isoptin] 40 mg PO BID@0800,192903/15/20 03/15/20 Previous Rx's Medication Instructions Recorded Multivitamin [Multivitamins Adult 1 each PO DAILY #30 tablet 03/18/20 Gummies] clonazePAM [KlonoPIN] 0.5 mg PO BID #60 tab 03/18/20 levETIRAcetam [Keppra] 500 mg PO BID #60 tab 03/18/20 Allergies Allergy/AdvReac Type Severity Reaction Status Date / Time clarithromycin [From Biaxin] Allergy Unknown Rash/Hives Verified 11/13/20 21:27 indomethacin [From Indocin] AdvReac Severe states Verified 11/13/20 21:27 "severe asthma attack indomethacin sodium AdvReac Severe states Verified 11/13/20 21:27 [From Indocin] "severe asthma attack" morphine AdvReac Unknown Hallucinati Verified 11/13/20 21:27 ons PERFUME AdvReac Dyspnea Uncoded 11/13/20 21:27 Review of Systems ROS Statement: Those systems with pertinent positive or pertinent negative responses have been documented in the HPI. ROS Other: All systems not noted in ROS Statement are negative. Past Medical History Past Medical History: Atrial Fibrillation, Asthma, Coronary Artery Disease (CAD), Chest Pain / Angina, GERD/Reflux, Hyperlipidemia, Osteoarthritis (OA), Sleep Apnea/CPAP/BIPAP, Thyroid Disorder Additional Past Medical History / Comment(s): Afib RVR, hiatal hernia, narrow esophagus, dysphagia with certain foods, arthritis in multiple joints, NATE without device, hypothyroid, bilateral tinnitis, anemia, bronchitis, seasonal allergies, sinus problems at times. 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 Past Psychological History: No Psychological Hx Reported Smoking Status: Former smoker Past Alcohol Use History: None Reported Past Drug Use History: None Reported - Past Family History Father History Unknown: Yes (Father secondary to bowel obstruction at age 69) Additional Family Medical History / Comment(s): Father of a bowel obstruction at the age of 69yrs. Mother History Unknown: Yes (Mother from CAD CHF) Family Medical History: Congestive Heart Failure (CHF), Coronary Artery Disease (CAD), Diabetes Mellitus (Mother at age 75 from CAD, diabetes, blindness.) Brother(s) History Unknown: Yes Family Medical History: Coronary Artery Disease (CAD) (He shouldn't had 5 brothers to still alive one of them with CAD and multiple stents placement in the other one CAD and he had 3 brothers passed one from throat cancer 1 from leukemia ended third one not sure the cause of .) Sister(s) History Unknown: Yes Family Medical History: Thyroid Disorder (Patient had 5 sisters 3 alive one with hypothyroidism bradycardia and GERD 1 is 93-year-old and the other one and sure of any health issues patient had a sister who from stomach cancer and the fifth 1 of unknown cause.) Daughter(s) History Unknown: Yes Family Medical History: Musculoskeletal Disorder (Patient has 2 daughters one of them is all right the other one with fibromyalgia and migraine headaches.) Son(s) History Unknown: Yes Family Medical History: Osteoarthritis (OA) (Patient has 2 sons one of them is a right the other one had a work accident ended up with osteoarthritis) General Exam Limitations: no limitations General appearance: alert, in no apparent distress Head exam: Absent: atraumatic (Laceration noted to left eyebrow) Eye exam: Present: normal appearance, PERRL, EOMI. Absent: scleral icterus, conjunctival injection ENT exam: Present: normal oropharynx, mucous membranes moist, TM's normal bilaterally, normal external ear exam, other (Patient has minimal bleeding from the right side of the nose.) Neck exam: Present: normal inspection, full ROM. Absent: tenderness Respiratory exam: Present: normal lung sounds bilaterally. Absent: respiratory distress, wheezes Cardiovascular Exam: Present: regular rate, normal rhythm, normal heart sounds GI/Abdominal exam: Present: soft, normal bowel sounds. Absent: distended, tenderness Extremities exam: Present: full ROM (Moving all extremities) Neurological exam: Present: normal gait Course Vital Signs 11/13/20 11/13/20 21:27 23:31 Temperature 97.3 F L 97.7 F Pulse Rate 92 83 Respiratory 18 18 Rate Blood Pressure 118/62 121/78 O2 Sat by Pulse 94 L 95 Oximetry Procedures - Laceration Laceration #1 Consent Obtained: verbal consent Indication: laceration Site: face Size (cm): 3 Description: linear Depth: simple, single layer Anesthetic Used: lidocaine 1% Anesthesia Technique: local infiltration Amount (mls): 3 Pre-repair: wound explored, irrigated extensively Type of Sutures: nylon Size of Sutures: 5-0 Number of Sutures: 5 Technique: simple, interrupted Patient Tolerated Procedure: well, no complications Medical Decision Making - Medical Decision Making Vitals are stable. Patient does have a laceration to the left eyebrow that was repaired. Nosebleed was controlled with let and Afrin. CT brain shows no acute intracranial abnormality. CT cervical spine shows no fracture. CT facial bones shows a nasal bone fracture and debris in the nasopharynx and right maxillary sinus consistent with blood clot. No evidence of orbital blowout fracture. At this time patient is stable for outpatient follow-up. Will follow up with primary care and ENT. Will return here for any worsening symptoms. Disposition Clinical Impression: Epistaxis, Nasal bone fracture Disposition: HOME SELF-CARE Condition: Good Instructions (If sedation given, give patient instructions): Nasal Fracture (ED) Additional Instructions: Please follow-up with your doctor in one to 2 days. Follow up with ENT as well. If you have any worsening symptoms return to the emergency room. If bleeding starts again spray 2 sprays in each nostril and clamp for 20 minutes. If it does not stop return to the emergency room. Is patient prescribed a controlled substance at d/c from ED?: No Referrals: Mark Anthony Mckeon DO [Primary Care Provider] - 1-2 days Yousuf French MD [STAFF PHYSICIAN] - 1-2 days Time of Disposition: 23:50
[2020-11-13 23:46] VITALS: TEMP 97.7
[2020-11-14 00:44] VITALS: BP 123/65; PULSE 82
== END 2020-11-14 00:30 | disposition home or self-care (01) ==
LOC: EC 21:12
DX: S02.2XXA Fracture of nasal bones, initial encounter for closed fracture (principal); S01.81XA Laceration without foreign body of other part of head, initial encounter; I48.91 Unspecified atrial fibrillation; J45.909 Unspecified asthma, uncomplicated; I25.10 Atherosclerotic heart disease of native coronary artery without angina pectoris; K21.9 Gastro-esophageal reflux disease without esophagitis; E78.5 Hyperlipidemia, unspecified; M19.90 Unspecified osteoarthritis, unspecified site; E07.9 Disorder of thyroid, unspecified; Z79.82 Long term (current) use of aspirin; Z79.01 Long term (current) use of anticoagulants; Z88.1 Allergy status to other antibiotic agents; Z88.5 Allergy status to narcotic agent; Z90.89 Acquired absence of other organs; Z87.891 Personal history of nicotine dependence; W01.0XXA Fall on same level from slipping, tripping and stumbling without subsequent striking against object, initial encounter; Y93.01 Activity, walking, marching and hiking
CPT/HCPCS: 99283; 12013; 72125; 70486; 70450; J2001

== ENCOUNTER 2020-11-17 11:45 | Emergency (ER) | payer MEDICARE, OTHER ==
[2020-11-17 12:01] VITALS: RESP 18; TEMP 98.4
[2020-11-17] MEDS ORDERED: OXYMETAZOLINE 0.05% NASL SPRAY 1 SPRAY BOTTLE NASAL STA (12:38)
[2020-11-17 12:39] LABS: Basophils % (A) 0 %; Eosinophils % (A) 1 %; HCT 31.8 % (39.0-53.0); HGB 10.6 gm/dL (13.0-17.5); Lymphocytes % (A) 26 %; MCHC 33.3 g/dL (31.0-37.0); MCV 102.2 fL (80.0-100.0); Macrocytosis Slight; Mean Platelet Volume 8.9; Monocytes # (A) 0.3 k/uL (0-1.0); Monocytes % (A) 7 %; Neutrophils # (A) 2.4 k/uL (1.3-7.7); Neutrophils % (A) 63 %; Platelet Count 145 k/uL (150-450); RBC 3.12 m/uL (4.30-5.90); WBC 3.9 k/uL (3.8-10.6)
[2020-11-17] MEDS ORDERED: SILVER NITRATE APPLICATOR 1 EACH STICK..EA. TOPICAL STA (12:39)
--- NOTE | 2020-11-17 12:46 | ED ---
General Adult HPI - General Chief complaint: ENT Stated complaint: Revisit/Nose Bleed Time Seen by Provider: 11/17/20 12:20 Source: patient, family, RN notes reviewed Mode of arrival: wheelchair Limitations: no limitations - History of Present Illness Initial comments: Patient is a pleasant 85-year-old male presenting to the emergency Department with epistaxis. Patient did have a fall with nasal fracture for 5 days ago. Patient does take Xarelto secondary to history of A. fib. Patient states nausea has been bleeding most the day today. Patient denies any significant discomfort. Patient does not feel short of breath and lightheaded. No other areas of bleeding. No history of chronic problems with epistaxis. - Related Data Home Medications Medication Instructions Recorded Confirmed Aspirin EC [Ecotrin Low Dose] 81 mg PO DAILY@192909/23/13 03/15/20 Levothyroxine Sodium [Synthroid] 50 mcg PO DAILY@0809/23/13 03/15/20 Montelukast [Singulair] 10 mg PO DAILY@192909/23/13 03/15/20 Omeprazole [PriLOSEC] 20 mg PO BID@08,192909/23/13 03/15/20 Warfarin [Coumadin] 5 mg PO SUTUTHSA@192909/23/13 03/15/20 Flecainide Acetate [Tambocor] 100 mg PO BID@08,192911/15/15 03/15/20 Warfarin Sodium 7.5 mg PO MOWEFR@192911/15/15 03/15/20 Atorvastatin Calcium [Lipitor] 10 mg PO DAILY@192903/15/20 03/15/20 DULoxetine HCL [Cymbalta] 60 mg PO DAILY@1200 03/15/20 03/15/20 Fludrocortisone [Florinef] 0.1 mg PO DAILY@0803/15/20 03/15/20 Verapamil [Isoptin] 40 mg PO BID@0800,192903/15/20 03/15/20 Previous Rx's Medication Instructions Recorded Multivitamin [Multivitamins Adult 1 each PO DAILY #30 tablet 03/18/20 Gummies] clonazePAM [KlonoPIN] 0.5 mg PO BID #60 tab 03/18/20 levETIRAcetam [Keppra] 500 mg PO BID #60 tab 03/18/20 Cephalexin [Keflex] 250 mg PO Q12HR #10 tab 11/17/20 Allergies Allergy/AdvReac Type Severity Reaction Status Date / Time clarithromycin [From Biaxin] Allergy Unknown Rash/Hives Verified 11/17/20 12:02 indomethacin [From Indocin] AdvReac Severe states Verified 11/17/20 12:02 "severe asthma attack indomethacin sodium AdvReac Severe states Verified 11/17/20 12:02 [From Indocin] "severe asthma attack" morphine AdvReac Unknown Hallucinati Verified 11/17/20 12:02 ons PERFUME AdvReac Dyspnea Uncoded 11/17/20 12:02 Review of Systems ROS Statement: Those systems with pertinent positive or pertinent negative responses have been documented in the HPI. ROS Other: All systems not noted in ROS Statement are negative. Constitutional: Denies: fever Eyes: Denies: eye pain ENT: Reports: epistaxis. Denies: ear pain Respiratory: Denies: cough Cardiovascular: Denies: chest pain Endocrine: Denies: fatigue Gastrointestinal: Denies: abdominal pain Genitourinary: Denies: dysuria Musculoskeletal: Denies: back pain Skin: Denies: rash Neurological: Denies: weakness Past Medical History Past Medical History: Atrial Fibrillation, Asthma, Coronary Artery Disease (CAD), Chest Pain / Angina, GERD/Reflux, Hyperlipidemia, Osteoarthritis (OA), Sleep Apnea/CPAP/BIPAP, Thyroid Disorder Additional Past Medical History / Comment(s): Afib RVR, hiatal hernia, narrow esophagus, dysphagia with certain foods, arthritis in multiple joints, NATE without device, hypothyroid, bilateral tinnitis, anemia, bronchitis, seasonal allergies, sinus problems at times. History of Any Multi-Drug Resistant Organisms: None Reported Past Surgical History: Adenoidectomy, Back Surgery, Heart Catheterization, Hernia Repair, Joint Replacement, Orthopedic Surgery, Tonsillectomy Additional Past Surgical History / Comment(s): 2006 coronary angioplasty-unable to deploy stent, 2011 cardiac cath, back fracture with repair, L shoulder rotator cuff repair, bilateral carpal tunnel releases, bilateral knee arthroscopies, R knee patellar surgery, traumatic amputation L 3rd finger, ce rvical and thoracic pain procedures, EGD, colonoscopies/benign polyps, bilateral cataract removals Past Anesthesia/Blood Transfusion Reactions: Motion Sickness Additional Past Anesthesia/Blood Transfusion Reaction / Comment(s): Pt received blood in 2007 without reaction. Past Psychological History: No Psychological Hx Reported Smoking Status: Former smoker Past Alcohol Use History: None Reported Past Drug Use History: None Reported - Past Family History Father History Unknown: Yes (Father secondary to bowel obstruction at age 69) Additional Family Medical History / Comment(s): Father of a bowel obstruction at the age of 69yrs. Mother History Unknown: Yes (Mother from CAD CHF) Family Medical History: Congestive Heart Failure (CHF), Coronary Artery Disease (CAD), Diabetes Mellitus (Mother at age 75 from CAD, diabetes, blindness.) Brother(s) History Unknown: Yes Family Medical History: Coronary Artery Disease (CAD) (He shouldn't had 5 brothers to still alive one of them with CAD and multiple stents placement in the other one CAD and he had 3 brothers passed one from throat cancer 1 from leukemia ended third one not sure the cause of .) Sister(s) History Unknown: Yes Family Medical History: Thyroid Disorder (Patient had 5 sisters 3 alive one with hypothyroidism bradycardia and GERD 1 is 93-year-old and the other one and sure of any health issues patient had a sister who from stomach cancer and the fifth 1 of unknown cause.) Daughter(s) History Unknown: Yes Family Medical History: Musculoskeletal Disorder (Patient has 2 daughters one of them is all right the other one with fibromyalgia and migraine headaches.) Son(s) History Unknown: Yes Family Medical History: Osteoarthritis (OA) (Patient has 2 sons one of them is a right the other one had a work accident ended up with osteoarthritis) General Exam Limitations: no limitations General appearance: alert, in no apparent distress Head exam: Present: normocephalic Eye exam: Present: normal appearance, PERRL, EOMI ENT exam: Present: normal oropharynx, other (Active bleeding from the right anterior septum) Neck exam: Present: normal inspection Respiratory exam: Present: normal lung sounds bilaterally Cardiovascular Exam: Present: regular rate, normal rhythm. Absent: irregular rhythm GI/Abdominal exam: Present: soft. Absent: tenderness Extremities exam: Present: normal inspection Neurological exam: Present: alert Psychiatric exam: Present: normal affect, normal mood Skin exam: Present: normal color Course Vital Signs 11/17/20 11/17/20 11/17/20 11:58 14:00 14:27 Temperature 98.4 F Pulse Rate 96 64 Respiratory 18 18 Rate Blood Pressure 137/84 174/97 178/102 O2 Sat by Pulse 100 98 Oximetry 11/17/20 11/17/20 15:00 17:02 Temperature Pulse Rate 69 Respiratory 18 Rate Blood Pressure 181/97 177/89 O2 Sat by Pulse 97 Oximetry Procedures - Procedures Initial comment: Epistaxis: Right nares with mild bleeding anterior nasal septum. I did use Afrin and 5 silver nitrate sticks. Bleeding has slowed however not resolved. Following this I did place packing secondary to continued epistaxis. Rhino Rocket placed right nares without complication. Balloon insufflation 2.5 mL anterior and posterior. Hemostasis has been obtained. Medical Decision Making - Medical Decision Making Hemostasis remains. Blood pressure is improved. Patient updated on results and need for follow-up - Lab Data Result diagrams: 11/17/20 12:25 Lab Results 11/17/20 11/17/20 Range/Units 12:25 12:25 WBC 3.9 (3.8-10.6) k/uL RBC 3.12 L (4.30-5.90) m/uL Hgb 10.6 L (13.0-17.5) gm/dL Hct 31.8 L (39.0-53.0) % MCV 102.2 H (80.0-100.0) fL MCH 34.0 (25.0-35.0) pg MCHC 33.3 (31.0-37.0) g/dL RDW 15.0 (11.5-15.5) % Plt Count 145 L (150-450) k/uL MPV 8.9 Neutrophils % 63 % Lymphocytes % 26 % Monocytes % 7 % Eosinophils % 1 % Basophils % 0 % Neutrophils # 2.4 (1.3-7.7) k/uL Lymphocytes # 1.0 (1.0-4.8) k/uL Monocytes # 0.3 (0-1.0) k/uL Eosinophils # 0.0 (0-0.7) k/uL Basophils # 0.0 (0-0.2) k/uL Macrocytosis Slight PT 11.1 (9.0-12.0) sec INR 1.1 (<1.2) APTT 25.6 (22.0-30.0) sec - Radiology Data Radiology results: image reviewed Disposition Clinical Impression: Epistaxis Disposition: HOME SELF-CARE Condition: Stable Instructions (If sedation given, give patient instructions): Nosebleed (ED) Additional Instructions: Prescription for antibiotics has been sent to your pharmacy. Please follow-up with primary care physician in the next couple days for recheck. Please follow- up with Dr. oD on Saturday as planned. Return for increased bleeding, bleeding from other sites, worsening symptoms or other concerns. Hold Xarelto for at least the next 24 hours. Prescriptions: Cephalexin [Keflex] 250 mg PO Q12HR #10 tab Is patient prescribed a controlled substance at d/c from ED?: No Referrals: Mark Anthony Mckeon DO [Primary Care Provider] - 1-2 days Shashi Poole DO [Doctor of Osteopathic Medicine] - 1-2 days Time of Disposition: 14:13
[2020-11-17 12:54] LABS: INR 1.1 (<1.2)
[2020-11-17 12:55] LABS: Partial Thromboplastin Time 25.6 sec (22.0-30.0); Prothrombin Time 11.1 sec (9.0-12.0)
--- NOTE | 2020-11-17 14:22 | XR ---
EXAMINATION TYPE: XR hand complete LT DATE OF EXAM: 11/17/2020 COMPARISON: NONE HISTORY: 85-year-old male with pain after fall TECHNIQUE: 3 views FINDINGS: Chronic transverse amputation/osteotomy of the distal aspect of the third distal phalanx. Mild degene rative change at the first CMC joint. Some synovial and TFC calcifications at the wrist. No acute fra cture, subluxation, dislocation seen. IMPRESSION: Old injury to the distal aspect of the middle finger. 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 No acute osseous abnormality seen.
[2020-11-17] MEDS ORDERED: cloNIDine HCL 0.1 MG TAB PO STA (14:48)
[2020-11-17 15:02] VITALS: PULSE 69
[2020-11-17] MEDS ORDERED: ALPRAZolam 0.5 MG TAB PO STA (15:37)
[2020-11-17 17:22] VITALS: BP 156/84
== END 2020-11-17 17:30 | disposition home or self-care (01) ==
LOC: EC 11:45
DX: R04.0 Epistaxis (principal); I48.91 Unspecified atrial fibrillation; J45.909 Unspecified asthma, uncomplicated; I25.10 Atherosclerotic heart disease of native coronary artery without angina pectoris; K21.9 Gastro-esophageal reflux disease without esophagitis; M19.90 Unspecified osteoarthritis, unspecified site; E78.5 Hyperlipidemia, unspecified; E07.9 Disorder of thyroid, unspecified; Z79.82 Long term (current) use of aspirin; Z79.01 Long term (current) use of anticoagulants; Z88.5 Allergy status to narcotic agent; Z90.89 Acquired absence of other organs; Z96.653 Presence of artificial knee joint, bilateral; Z87.891 Personal history of nicotine dependence
CPT/HCPCS: 30903; 36415; 85025; 85610; 85730; 99283

== ENCOUNTER → 2021-01-20 | Outpatient (CLI) | payer MEDICARE, OTHER ==
[2021-01-21 02:57] LABS: Protein, Total 6.4 g/dL (6.2-8.2)
== END | disposition home or self-care (01) ==
LOC: LABWHC1 14:15
PROVIDERS: ATTEND Psychiatry & Neurology Neurology
DX: E53.9 Vitamin B deficiency, unspecified (principal); G90.09 Other idiopathic peripheral autonomic neuropathy; R73.9 Hyperglycemia, unspecified
CPT/HCPCS: 36415; 82550; 82607; 83036; 84165; 84207; 86334

== ENCOUNTER → 2021-06-14 | Outpatient (CLI) | payer MEDICARE, OTHER ==
[2021-06-14 09:54] LABS: African American GFR (CKD) >90 (>60 ml/min/1.73 sqM); Blood Urea Nitrogen 11 mg/dL (9-20); Non-African American GFR(CKD) 87 (>60 ml/min/1.73 sqM)
--- NOTE | 2021-06-14 11:11 | CT ---
EXAMINATION TYPE: CT brain wo/w con DATE OF EXAM: 06/14/2021 COMPARISON: Prior CT brain April 02, 2021 HISTORY: Migraine and visual disturbances CT DLP: 2339 mGycm Automated exposure control for dose reduction was used. CONTRAST: CT scan of the head is performed without and with IV Contrast, patient injected with 100 mL of Isovue 300. FINDINGS: Noncontrast images redemonstrate no acute intracranial hemorrhage or midline shift. Mild to moderate diffuse ventricular and sulcal prominence is redemonstrated. Mild to moderate low attenuati on throughout the deep and periventricular white matter is again seen. The globes are intact and the visualized sinuses are clear. Postcontrast images show no suspicious enhancing mass. IMPRESSION: Mild to moderate diffuse cerebral atrophy and chronic small vessel ischemic change redemo nstrated. No abnormal enhancement. No significant change from prior CT.
== END | disposition home or self-care (01) ==
LOC: RADCTMAIN 08:57
PROVIDERS: ATTEND Family Medicine
DX: I67.82 Cerebral ischemia (principal); G31.9 Degenerative disease of nervous system, unspecified
CPT/HCPCS: 82565; 84520; 70470; 36415; Q9967

== ENCOUNTER → 2021-11-02 | Outpatient (CLI) | payer MEDICARE ==
--- NOTE | 2021-11-02 08:17 | CT ---
EXAMINATION TYPE: CT brain wo con DATE OF EXAM: 11/02/2021 HISTORY: Light headedness. Fall injury CT DLP: 1046.8 mGycm. Automated Exposure Control for Dose Reduction was Utilized. TECHNIQUE: CT scan of the head is performed without contrast. COMPARISON: None. FINDINGS: There is no acute intracranial hemorrhage or midline shift identified. There is mild to m oderate diffuse ventricular and sulcal prominence consistent with diffuse age-related cerebral atroph y. There is mild to moderate low-attenuation in the periventricular white matter consistent with chr onic small vessel ischemic change. Moderate calcification distal internal carotid arteries bilaterall y is redemonstrated related. Old lacunar infarct right head of caudate nucleus axial image 24 redemon strated. The globes are intact and the visualized sinuses are clear. IMPRESSION: No acute intracranial hemorrhage or midline shift. There is mild to moderate diffuse ag e-related cerebral atrophy and chronic small vessel ischemic change along with old lacunar infarct ri ght head of caudate nucleus are all redemonstrated. No significant change from prior CT.
== END | disposition home or self-care (01) ==
LOC: RADCTMAIN 07:33
PROVIDERS: ATTEND Family Medicine
DX: S09.90XA Unspecified injury of head, initial encounter (principal); W19.XXXA Unspecified fall, initial encounter; G31.9 Degenerative disease of nervous system, unspecified; I67.82 Cerebral ischemia
CPT/HCPCS: 70450

== ENCOUNTER → 2023-06-28 | Outpatient (CLI) | payer MEDICARE, OTHER ==
--- NOTE | 2023-06-28 16:00 | XR ---
EXAMINATION TYPE: XR elbow complete 3 views RT, XR wrist complete 4 views RT, XR hand complete 3 view s RT DATE OF EXAM: 06/28/2023 COMPARISON: None HISTORY: 88-year-old male R52, pain after fall yesterday FINDINGS: Elbow: Prominent biceps bulge. There is an anterior elbow joint effusion. Generalized soft tissue swelling. Bony spurring at the lateral condyle. Some vague densities along the lateral radiocapitellar joint li ne. No acute fracture, subluxation or dislocation seen. Wrist: TFC calcifications. Synovial calcifications Vascular calcifications. The radiocarpal and distal radia l ulnar joint as well as the midcarpal compartment appear intact. Subtle linear lucency extending thr ough the mid waist of the scaphoid probably projectional. Otherwise, no acute fracture, subluxation, dislocation. Moderate degenerative change first CMC joint. Hand: Moderate degenerative change at the base of the thumb. Mild degenerative change at the DIP joints. No acute fracture, subluxation, or dislocation. IMPRESSION: Elbow: 1. Prominent biceps bulge which may be normal for the patient. Correlate to exclude abnormal bulging secondary to disruption of the distal biceps tendon insertion. 2. Underlying elbow joint effusion and generalized soft tissue swelling. 3. Spurring at the lateral epicondyle and some vague densities at the lateral joint line. If concern for injury to the common extensor tendon origin, MRI can be considered. 4. Otherwise, no acute osseous abnormality seen. Wrist: 5. Subtle transverse lucency through the mid waist of the scaphoid may be projectional. If there is s nuffbox tenderness, a nondisplaced scaphoid waist fracture is not excluded. 6. TFC and synovial calcifications are nonspecific but may be seen with CPPD. 7. Moderate OA at the basal joint of the thumb. Hand: 8. Additional scattered mild osteoarthritic change in the finger DIP joints. No acute osseous abnorma lity seen.
== END | disposition home or self-care (01) ==
LOC: RADXRMAIN 14:08
PROVIDERS: ATTEND Family Medicine
DX: M25.421 Effusion, right elbow (principal)

== ENCOUNTER 2024-08-26 14:16 | Emergency (ER) | payer MEDICARE, OTHER ==
--- NOTE | 2024-08-26 15:32 | XR ---
EXAMINATION TYPE: XR hand complete LT DATE OF EXAM: 08/26/2024 3:07 PM COMPARISON: 11/17/2020. CLINICAL INDICATION: Male, 89 years old with history of left thumb and forefinger laceration table sa w; PHH, pain TECHNIQUE: XR hand complete LT 3 views were obtained. FINDINGS: Similar amputation changes of the third digit distal phalanx. No radiopaque foreign bodies. Lacerations not well appreciated on radiography Normal alignment of the visualized joints. No acute osseous pathology is identified. No evidence of soft tissue swelling. Multifocal degeneration macdonald es with joint space narrowing and osteophyte formation. IMPRESSION: 1. No acute osseous pathology. 2. Multifocal osteoarthrosis throughout the joints of the hand. 3. No radiopaque foreign bodies. 4. Stable amputation of the third digit distal phalanx. [facility], , 08/26/2024 3:30 PM
--- NOTE | 2024-08-26 16:07 | ED ---
Wound/Laceration HPI - General Chief Complaint: Wound/Laceration Stated Complaint: left thumb and finger laceration Time Seen by Provider: 08/26/24 14:30 Source: patient, RN notes reviewed Mode of arrival: ambulatory Limitations: no limitations - History of Present Illness Initial Comments: 89-year-old male presenting to the emergency department with his [id number] for concerns of a laceration to his left hand. Patient states that he was using his table saw when he accidentally cut his left first digit in his third digit. States that he is on Xarelto. Unaware when last tetanus vaccination was. He denies pain or loss of range of motion. - Related Data Home Medications Medication Instructions Recorded Confirmed Aspirin EC [Ecotrin Low Dose] 81 mg PO DAILY@192909/23/13 04/02/21 Levothyroxine Sodium [Synthroid] 50 mcg PO DAILY@79909/23/13 04/02/21 Montelukast [Singulair] 10 mg PO DAILY@192909/23/13 04/02/21 Omeprazole [PriLOSEC] 20 mg PO BID@08,192909/23/13 04/02/21 Flecainide Acetate [Tambocor] 100 mg PO BID@09,192911/15/15 04/02/21 Atorvastatin Calcium [Lipitor] 10 mg PO DAILY@192903/15/20 04/02/21 Fludrocortisone [Florinef] 0.1 mg PO DAILY@79903/15/20 04/02/21 Verapamil [Isoptin] 40 mg PO BID@08,192903/15/20 04/02/21 Finasteride [Proscar] 5 mg PO DAILY@89904/02/21 04/02/21 Iron 27mg 27 mg PO DAILY@89904/02/21 04/02/21 Multivitamin [Multivitamins Adult 1 tab PO DAILY 04/02/21 04/02/21 Gummies] Nitroglycerin Sl Tabs [Nitrostat] 0.4 mg SUBLINGUAL Q5M PRN 04/02/21 04/02/21 Rivaroxaban [Xarelto] 15 mg PO DAILY@172904/02/21 04/02/21 Sertraline [Zoloft] 100 mg PO DAILY@172904/02/2122 Previous Rx's Medication Instructions Recorded HYDROcodone/APAP 7.5-325MG [[place] 1 tab PO Q6HR PRN 3 Days #12 tab 04/02/21 7.5-325] Allergies Allergy/AdvReac Type Severity Reaction Status Date / Time clarithromycin [From Biaxin] Allergy Unknown Rash/Hives Verified 04/02/21 08:32 indomethacin [From Indocin] AdvReac Severe states Verified 04/02/21 08:32 "severe asthma attack indomethacin sodium AdvReac Severe states Verified 04/02/21 08:32 [From Indocin] "severe asthma attack" morphine AdvReac Unknown Hallucinati Verified 04/02/21 08:32 ons PERFUME AdvReac Dyspnea Uncoded 11/17/20 12:02 Review of Systems ROS Statement: Those systems with pertinent positive or pertinent negative responses have been documented in the HPI. ROS Other: All systems not noted in ROS Statement are negative. Past Medical History Past Medical History: Atrial Fibrillation, Asthma, Coronary Artery Disease (CAD), Chest Pain / Angina, GERD/Reflux, Hyperlipidemia, Osteoarthritis (OA), Sleep Apnea/CPAP/BIPAP, Thyroid Disorder Additional Past Medical History / Comment(s): Afib RVR, hiatal hernia, narrow esophagus, dysphagia with certain foods, arthritis in multiple joints, NATE without device, hypothyroid, bilateral tinnitis, anemia, bronchitis, seasonal allergies, sinus problems at times. 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 Past Psychological History: No Psychological Hx Reported Smoking Status: Former smoker Past Alcohol Use History: None Reported Past Drug Use History: None Reported - Past Family History Father History Unknown: Yes (Father secondary to bowel obstruction at age 69) Additional Family Medical History / Comment(s): Father of a bowel obstruction at the age of 69yrs. Mother History Unknown: Yes (Mother from CAD CHF) Family Medical History: Congestive Heart Failure (CHF), Coronary Artery Disease (CAD), Diabetes Mellitus (Mother at age 75 from CAD, diabetes, blindness.) Brother(s) History Unknown: Yes Family Medical History: Coronary Artery Disease (CAD) (He shouldn't had 5 brothers to still alive one of them with CAD and multiple stents placement in the other one CAD and he had 3 brothers passed one from throat cancer 1 from leukemia ended third one not sure the cause of .) Sister(s) History Unknown: Yes Family Medical History: Thyroid Disorder (Patient had 5 sisters 3 alive one with hypothyroidism bradycardia and GERD 1 is 93-year-old and the other one and sure of any health issues patient had a sister who from stomach cancer and the fifth 1 of unknown cause.) Daughter(s) History Unknown: Yes Family Medical History: Musculoskeletal Disorder (Patient has 2 daughters one of them is all right the other one with fibromyalgia and migraine headaches.) Son(s) History Unknown: Yes Family Medical History: Osteoarthritis (OA) (Patient has 2 sons one of them is a right the other one had a work accident ended up with osteoarthritis) General Exam Limitations: no limitations Neck exam: Present: normal inspection. Absent: tenderness, meningismus, lymp hadenopathy Respiratory exam: Present: normal lung sounds bilaterally. Absent: respiratory distress, wheezes, rales, rhonchi, stridor Cardiovascular Exam: Present: regular rate, normal rhythm, normal heart sounds. Absent: systolic murmur, diastolic murmur, rubs, gallop, clicks GI/Abdominal exam: Present: soft, normal bowel sounds. Absent: distended, tenderness, guarding, rebound, rigid Left Hand Wrist exam: Present: laceration (1st digit and 3rd digit) Back exam: Present: normal inspection Skin exam: Present: warm, dry, intact, normal color. Absent: rash Course Vital Signs 08/26/24 08/26/24 14:49 17:14 Temperature 97.3 F L 98 F Pulse Rate 52 L 48 L Respiratory 20 16 Rate Blood Pressure 150/79 190/100 O2 Sat by Pulse 98 99 Oximetry Procedures - Laceration Laceration #1 Consent Obtained: verbal consent Indication: laceration Site: hand Size (cm): 2 Depth: simple, single layer Anesthetic Used: lidocaine 1% Anesthesia Technique: local infiltration Amount (mls): 3 Pre-repair: wound explored Type of Sutures: nylon Size of Sutures: 4-0 Number of Sutures: 3 Technique: simple, interrupted Patient Tolerated Procedure: well, no complications Laceration #2 Consent Obtained: verbal consent Indication: laceration Site: hand Size (cm): 2 Depth: simple, single layer Anesthesia Technique: local infiltration Amount (mls): 3 Pre-repair: wound explored, irrigated extensively Type of Sutures: nylon Size of Sutures: 4-0 Number of Sutures: 4 Technique: simple, interrupted Patient Tolerated Procedure: well, no complications Medical Decision Making - Medical Decision Making Was pt. sent in by a medical professional or institution ([address], MEDICINE TEACHER, urgent care, hospital, or group home...) When possible be specific @ -No Did you speak to anyone other than the patient for history (EMS, parent, family, police, friend...)? What history was obtained from this source @ -No Did you review nursing and triage notes (agree or disagree)? Why? @ -I reviewed and agree with nursing and triage notes Were old charts reviewed (outside hosp., previous admission, EMS record, old EKG, old radiological studies, urgent care reports/EKG's, group home records)? Report findings @ -No old charts were reviewed Differential Diagnosis (chest pain, altered mental status, abdominal pain women, abdominal pain men, vaginal bleeding, weakness, fever, dyspnea, syncope, headache, dizziness, GI bleed, back pain, seizure, CVA, palpatations, mental health, musculoskeletal)? @ -Laceration, skin avulsion, tendon injury, this list is not all inclusive EKG interpreted by me (3pts min.). @ -None X-rays interpreted by me (1pt min.). @ -X-ray of the left hand no acute osseous pathology CT interpreted by me (1pt min.). @ -None done U/S interpreted by me (1pt. min.). @ -None done What testing was considered but not performed or refused? (CT, X-rays, U/S, labs)? Why? @ -None What meds were considered but not given or refused? Why? @ -None Did you discuss the management of the patient with other professionals (professionals i.e. , PA, MEDICINE TEACHER, lab, RT, psych nurse, community mental health social worker, product control and logistics analyst, teacher, highway patrol officer, corrections caseworker)? Give summary @ -No Was smoking cessation discussed for >3mins.? @ -No Was critical care preformed (if so, how long)? @ -No Were there social determinants of health that impacted care today? How? (Homelessness, low income, unemployed, alcoholism, drug addiction, transportation, low edu. Level, literacy, decrease access to med. care, halfway, rehab)? @ -No Was there de-escalation of care discussed even if they declined (Discuss DNR or withdrawal of care, Hospice)? DNR status @ -No What co-morbidities impacted this encounter? (DM, HTN, Smoking, COPD, CAD, Cancer, CVA, ARF, Chemo, Hep., AIDS, mental health diagnosis, sleep apnea, morbid obesity)? @ -None Was patient admitted / discharged? Hospital course, mention meds given and route, prescriptions, significant lab abnormalities, going to OR and other pertinent info. @ -Discharge. 89-year-old male presenting for laceration to the left hand. There is a noted elliptical laceration to the pad of the first digit and a vertical laceration to the anterior third digit that does not cross the distal interphalangeal joint. Full range of motion of the 5 digits of the left hand. Patient is neurovascular intact to the left hand. Area was cleansed with sterile water and Betadine solution. Local infiltration was used with lidocaine to anesthetize the area. 4 sutures were placed to the first digit and 3 sutures were placed to the third digit. Patient's tetanus is updated. Recommend patie nt return to the ER or to primary care provider in approximately 10 days for suture removal. Return parameters discussed. Case discussed with Dr. Leger Undiagnosed new problem with uncertain prognosis? @ -No Drug Therapy requiring intensive monitoring for toxicity (Heparin, Nitro, Insulin, Cardizem)? @ -No Were any procedures done? @ -Wound repair/suture Diagnosis/symptom? @ -Laceration Acute, or Chronic, or Acute on Chronic? @ -Acute Uncomplicated (without systemic symptoms) or Complicated (systemic symptoms)? @ -Uncomplicated Side effects of treatment? @ -No Exacerbation, Progression, or Severe Exacerbation? @ -No Poses a threat to life or bodily function? How? (Chest pain, [place], [place], pneumonia, PE, COPD, DKA, ARF, appy, cholecystitis, CVA, Diverticulitis, Homicidal, Suicidal, threat to staff... and all critical care pts) @ -No Disposition Clinical Impression: Laceration Disposition: HOME SELF-CARE Condition: Good Instructions (If sedation given, give patient instructions): Care For Your Stitches (DC) Additional Instructions: Please return to the Emergency Department if symptoms worsen or any other concerns. Is patient prescribed a controlled substance at d/c from ED?: No Referrals: Cristiano Flores DO [Primary Care Provider] - 1-2 days Time of Disposition: 17:02
[2024-08-26] MEDS: LIDOCAINE 1% INJ 10MG/ML (20 ML MDV) SQ ONE (16:22)
[2024-08-26] MEDS: DIPH,PERTUS(ACELL)TETVAC-LF 0.5 ML VIAL IM ONE (16:22)
[2024-08-26 17:16] VITALS: BP 190/100; PULSE 48; RESP 16; TEMP 98
== END 2024-08-26 17:19 | disposition home or self-care (01) ==
LOC: EC 14:16
DX: S61.012A Laceration without foreign body of left thumb without damage to nail, initial encounter (principal); Z87.891 Personal history of nicotine dependence; Z88.5 Allergy status to narcotic agent; Z88.8 Allergy status to other drugs, medicaments and biological substances; Z23 Encounter for immunization; W31.2XXA Contact with powered woodworking and forming machines, initial encounter
CPT/HCPCS: 73130; 90715; 99283; 90471; 12002; J2003